=== PATIENT | male | born 1940 | race Caucasian/White ===

== ENCOUNTER 2018-04-10 10:29 | Day surgery (SDC) | payer MEDICARE, OTHER, SELFPAY ==
[2018-04-10 10:54] VITALS: BP 181/82; PULSE 57; RESP 20; TEMP 36.6; O2SAT 100; BMI 20.9
--- NOTE | 2018-04-10 12:18 | PM.PREOP ---
Pre-operative Note Interval Note History & Physical reviewed/Exam performed by Physician: No Changes to H&P: No
--- NOTE | 2018-04-10 12:18 | PM.OP.1 ---
Operative Date/Time/Diagnoses Pre-op diagnosis: Nuclear cataract right eye Procedure & Clinicians Procedure: Cataract Surgery Same procedure as scheduled: Yes Surgeon: Pelon Ott Anesthesia Type: MAC +/- and Sedation Operative Notes Procedure in detail: Patient brought to the operating suite. Tetracaine drops placed in the right eye. Marking instrument was used to rossy the vertical and horizontal meridian. Patient was prepped and draped in sterile manner. Wire lid speculum was placed in the eye. Betadine drops were placed on the eye. This was irrigated. Lidocaine jelly was placed on the eye. A paracentesis port was created with a side-port blade. 0.1 mL 1% preservative free lidocaine was injected into the anterior chamber. The anterior chamber was deepened with viscoelastic. 2.6 mm keratome was used to create a temporal clear corneal incision. Cystotome and Utrata forceps were used to create continuous tear capsulorrhexis. Balanced salt solution was used to hydro dissect the nucleus. The phacoemulsification handpiece was inserted and the nucleus was removed using the stop and chop technique. The irrigation aspiration handpiece was inserted and the remaining cortex was removed. Anterior chamber was deepened with viscoelastic. An Bronson [id number] intraocular lens with a power of 22.5 was injected into the capsular bag. Irrigation aspiration handpiece was inserted and the remaining viscoelastic was removed. The lens was rotated to the 180 degree meridian. Incision was hydrated with balanced salt solution and found to be leak free with pressure with Weck-Terrie sponges. 0.1 mL Vigamox injected anterior chamber. 0.3 mL Kenalog 10 mg was injected subconjunctivally. Lid speculum was removed. The patient left the operating room in excellent condition. Complications: none Condition: stable Disposition: same day surgery
[2018-04-10] MEDS: PHENYLEPHRINE/LIDOCAINE VIAL (OR) 0.2 ML EYE-OP (12:33)
[2018-04-10] MEDS: MOXIFLOXACIN OPHTH DROPS 3 ML BOTTLE 2 DROPS INJ (12:34)
[2018-04-10] MEDS: CHONDROIDTIN/SOD HYALURONATE 1.05 ML SYRINGE INTRAOCULA (12:34)
[2018-04-10] MEDS: LIDOCAINE JELLY 2% 5 ML 1 APPLIC TOP (12:34)
[2018-04-10] MEDS: TRIAMCINOLONE 50 MG/5 ML VIAL INJ (12:34)
[2018-04-10] MEDS: TETRACAINE 0.5% OPHTH DROPS 4 ML 2 DROPS EYE-OP (12:35)
[2018-04-10] MEDS: PROPARACAINE 0.5% OPHTH SOL 2 DROPS EYE-OP (12:35)
[2018-04-10] MEDS: BALANCED SALT IRRIG SOLN NO.2 500 ML, EPINEPHrine 1 MG IRR (12:36)
[2018-04-10 12:44] VITALS: BP 163/74; PULSE 59; RESP 14; TEMP 36.5; O2SAT 100
--- NOTE | 2018-04-10 13:10 | SUR.PHASEII ---
1244 late entry To [facility], friend at bedside, A&O, pleasant and comfortable. Fluids given. 1300 Stable, preparing for discharge, tolerating PO well. No questions/concerns. Arie remains CDI.
== END 2018-04-10 13:06 ==
LOC: OR 10:32
PROVIDERS: Visit Provider Ophthalmology
DX: H25.11 Age-related nuclear cataract, right eye (principal)
CPT/HCPCS: J0171; J2250; J3010; J3301; V2787

== ENCOUNTER 2018-04-24 06:36 | Day surgery (SDC) | payer MEDICARE, OTHER, SELFPAY ==
[2018-04-24 07:05] VITALS: BP 190/81; PULSE 63; RESP 16; TEMP 36.4; O2SAT 97; BMI 20.9
[2018-04-24] MEDS: PROPARACAINE 0.5% OPHTH SOL 2 DROPS EYE-OP (07:10)
[2018-04-24] MEDS: CATARACT EYE COMPOUND (10 DROPS/SYRINGE) 3 DROPS EYE-OP (07:16)
--- NOTE | 2018-04-24 08:14 | PM.PREOP ---
Pre-operative Note Interval Note History & Physical reviewed/Exam performed by Physician: No Changes to H&P: No
--- NOTE | 2018-04-24 08:14 | PM.OP.1 ---
Operative Date/Time/Diagnoses Pre-op diagnosis: Nuclear Cataract Left eye Post-op diagnosis: same Procedure & Clinicians Surgeon: Pelon Ott Anesthesia Type: MAC +/- and Sedation Operative Notes Procedure in detail: Patient brought to the operating suite. Tetracaine drops placed in the left eye. The marking instrument was used to rossy the vertical and horizontal meridian. Patient was prepped and draped in sterile manner. Wire lid speculum was placed in the eye. Betadine drops were placed on the eye. This was irrigated. Lidocaine jelly was placed on the eye. A paracentesis port was created with a side-port blade. 0.1 mL 1% preservative free lidocaine was injected into the anterior chamber. The anterior chamber was deepened with viscoelastic. 2.6 mm keratome was used to create a temporal clear corneal incision. Cystotome and Utrata forceps were used to create continuous tear capsulorrhexis. Balanced salt solution was used to hydro dissect the nucleus. The phacoemulsification handpiece was inserted and the nucleus was removed using the stop and chop technique. The irrigation aspiration handpiece was inserted and the remaining cortex was removed. Anterior chamber was deepened with viscoelastic. An Bronson [id number] intraocular lens with a power of 22.0 was injected into the capsular bag. Irrigation aspiration handpiece was inserted and the remaining viscoelastic was removed. The lens was rotated to the 180 degree meridian. Incision was hydrated with balanced salt solution and found to be leak free with pressure with Weck-Terrie sponges. 0.1 mL Vigamox injected anterior chamber. 0.3 mL Kenalog 10 mg was injected subconjunctivally. Lid speculum was removed. The patient left the operating room in excellent condition. Complications: none Condition: stable Disposition: same day surgery
--- NOTE | 2018-04-24 08:16 | SUR.OPER ---
Supine on eye stretcher, head on extension cradle secured with tape. Arms tucked at sides with blanket. Pillow under knees.
[2018-04-24] MEDS: LIDOCAINE JELLY 2% 5 ML 1 APPLIC TOP (08:25)
[2018-04-24] MEDS: CHONDROIDTIN/SOD HYALURONATE 1.05 ML SYRINGE INTRAOCULA (08:26)
[2018-04-24] MEDS: TRIAMCINOLONE 50 MG/5 ML VIAL INJ (08:26)
[2018-04-24] MEDS: MOXIFLOXACIN OPHTH DROPS 3 ML BOTTLE 2 DROPS INJ (08:27)
[2018-04-24] MEDS: PHENYLEPHRINE/LIDOCAINE VIAL (OR) 0.2 ML EYE-OP (08:27)
[2018-04-24] MEDS: BALANCED SALT IRRIG SOLN NO.2 500 ML, EPINEPHrine 1 MG IRR (08:28)
[2018-04-24] MEDS: TETRACAINE 0.5% OPHTH DROPS 4 ML 2 DROPS EYE-OP (08:29)
[2018-04-24 08:42] VITALS: BP 160/77; PULSE 62; RESP 15; TEMP 36.4; O2SAT 100
== END 2018-04-24 08:50 ==
LOC: OR 06:37
PROVIDERS: Visit Provider Ophthalmology
PROC: (CPT 66984; principal; 2018-04-24 08:15)
DX: H25.12 Age-related nuclear cataract, left eye (principal)
CPT/HCPCS: 66984; J0171; J2250; J3301; V2787

== ENCOUNTER 2019-03-26 12:32 | Day surgery (SDC) | payer MEDICARE, OTHER, SELFPAY ==
[2019-03-26] VITALS (7 sets, daily range): BP systolic 123–158; BP diastolic 68–80; PULSE 70–84; RESP 8–16; TEMP 36–36.7; O2SAT 95–100
--- NOTE | 2019-03-26 | PATH_ITS ---
[facility] Accession Number: [id number] . 01 Material submitted: . PART A: duodenum - DUODENUM BIOPSY PART B: gastrointestinal site - MASS IN ANTRUM PART C: esophagus - DISTAL ESOPHAGUS PART D: hepatic flexure - HEPATIC FLEXURE MASS PART E: cecum - CECAL POLYP PART F: rectum - RECTAL POLYPS AT 15 CM . 02 Diagnosis: A. Duodenum, Biopsy: Duodenal mucosa with no diagnostic abnormality. Negative for active inflammation, features of sprue, dysplasia, or malignancy. . B. Antrum, Biopsy: Gastric hyperplastic polyp. No evidence of Helicobacter organisms on H/E stain. Negative for intestinal metaplasia on alcian blue stain. Negative for dysplasia or malignancy. Additional step sections examined. . C. Distal Esophagus, Biopsy: Squamocolumnar junctional mucosa with intestinal metaplasia; please see comment. Negative for dysplasia or malignancy. . D. Hepatic Flexure Mass, Biopsy: Invasive adenocarcinoma, moderately to poorly differentiated. Loss of MLH1 and PMS2 expression by immunohistochemistry; please see interpretation below and comment. Lymphovascular invasion not identified. . E. Cecum, Polyp: Small serrated lesion, consistent with early sessile serrated adenoma. . F. Rectum at 15 cm, Polyp: Hyperplastic polyp. . IMMUNOHISTOCHEMISTRY TESTING FOR MISMATCH REPAIR PROTEINS (D1): . MLH1: Loss of nuclear expression. MSH2: Intact nuclear expression. MSH6: Intact nuclear expression. PMS2: Loss of nuclear expression. Background nonneoplastic tissue/internal control with intact nuclear expression. . INTERPRETATION: Loss of nuclear expression of MLH1 and PMS2: testing for methylation of the MLH1 promoter and/or mutation of BRAF is indicated (the presence of a BRAF V600E mutation and/or MLH1 methylation suggests that the tumor is sporadic and germline evaluation is probably not indicated; absence of both MLH1 methylation and of BRAF V600E mutation suggests the possibility of Callejas syndrome, and sequencing and/or large deletion/duplication testing of germline MLH1 may be indicated)* . * There are exceptions to the above IHC interpretations. These results should not be considered in isolation, and clinical correlation with genetic counseling is recommended to assess the need for germline testing. [facility] 03/29/2019 1532 Local . 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 . Part D: Given the loss of nuclear expression of MLH1 and PMS2, MLH1 promoter methylation and BRAF V600 mutational analyses will be performed in a stepwise fashion, and findings issued in an addendum. . As part of routine automotive quality engineer, Dr. Dee has reviewed part D of this case and agrees with the diagnosis of invasive adenocarcinoma. The finding of invasive adenocarcinoma was reported to Dr. Campbell via [facility] by Dr. Lara on 03/28/2019 at 10:40 a.m. . 02 Electronically signed: . Adams Lara MD, PhD, Pathologist NPI- [id number] . 01 Gross description: . Part A: DUODENUM BIOPSY: Received in formalin is 1 fragment(s) of galvan, soft tissue measuring 0.3 x 0.2 x 0.2 cm submitted entirely in 1 cassette(s) Part B: MASS IN ANTRUM: Received in formalin is 1 fragment(s) of galvan, soft tissue measuring 0.2 x 0.2 x 0.2 cm submitted entirely in 1 cassette(s) Part C: DISTAL ESOPHAGUS: Received in formalin are 2 fragment(s) of galvan, soft tissue measuring 0.1 x 0.1 x 0.1 cm to 0.2 x 0.2 x 0.2 cm submitted entirely in 1 cassette(s) Part D: HEPATIC FLEXURE MASS: Received in formalin are 2 fragment(s) of galvan, soft tissue measuring 0.2 x 0.2 x 0.1 cm to 0.3 x 0.3 x 0.2 cm submitted entirely in 1 cassette(s) Part E: CECAL POLYP: Received in formalin is 1 fragment(s) of galvan, soft tissue measuring 0.2 x 0.2 x 0.2 cm submitted entirely in 1 cassette(s) Part F: RECTAL POLYPS AT 15 CM: Received in formalin is 1 fragment(s) of galvan, soft tissue measuring 0.2 x 0.2 x 0.2 cm submitted entirely in 1 cassette(s) /[facility] 03/26/2019 2016 Local . 02 Microscopic: . Part B: An AB/PAS stain is performed to evaluate for intestinal metaplasia, and is negative for goblet cells. A control stain shows appropriate reactivity. . Part D: The carcinoma cells show loss of nuclear expression of MLH1 and PMS2 by immunohistochemical technique*; the carcinoma cells have intact nuclear expression of MSH2 and MSH6. All control stains show appropriate reactivity. . * This test was developed and its performance characteristics determined by [employer]. It has not been cleared or approved by the U.S. Food and Drug Administration. The FDA has determined that such clearance or approval is not necessary. This test is used for clinical purposes. It should not be regarded as investigational or for research. . 02 Pathologist provided ICD-10: K31.7, K22.70, D12.0, K62.1, C18.3 . 02 CPT . 518333, 250663, 986997, 283749, 146529, 466065, T59160, W00788, 654306 Performed at: 01 [facility] [address] [place] [address], [place], [place] [id number] MD Wliner Magaña MD Phone: [phone] Performed at: 02 [facility] [address] [place], [place] [id number] MD Rema Meléndez MD Phone: [phone]
[2019-03-26] MEDS: SODIUM CHLORIDE 0.9% 1,000 ML 200 ML IV (12:59)
--- NOTE | 2019-03-26 13:41 | PM.PREOP ---
Pre-operative Note Interval Note History & Physical reviewed/Exam performed by Physician: Yes Changes to H&P: No ASA Class (for procedural sedation): II
--- NOTE | 2019-03-26 14:55 | PM.OP.ENDO ---
Operative Date/Time/Diagnoses Date of procedure: 03/26/19 Time of procedure: 14:56 Pre-op diagnosis: Anemia, positive fit test Post-op diagnosis: other (Antral mass, Ambrocio's esophagus, hepatic flexure mass, cecal polyp, rectal polyps x2) Procedure & Clinicians Study performed: Esophagogastroduodenoscopy, biopsy of antral mass, biopsy of distal esophagus, colonoscopy, biopsy of hepatic flexure mass, cecal polypectomy, rectal polypectomy x2 Same procedure as scheduled: Yes Indications: Anemia, positive fit test Surgeon: Grace Campbell Procedure Notes SCOAP/Timeout: Performed Procedure in detail: The patient was brought to the room and placed in left lateral decubitus position with all bony prominences padded. A time-out was performed and then the patient was given procedural sedation starting with 4 mg of Versed and 100 mcg of fentanyl. A total of 8 mg of Versed and 200 micro g of fentanyl were given for the entire procedure. Vitals were monitored throughout the procedure and remained stable. Once adequately sedated the procedure was begun. The gastroscope was passed over the tongue and into the esophagus without incident. The tubularized full view was obtained of the esophagus and maintained as I traversed the esophagus, long tongues of salmon-colored mucosa were seen in the distal esophagus greater than 1 cm above the Z-line. These were biopsied circumferentially. Passed into the stomach, and a submucosal protuberance was seen at the antrum. This was biopsied x3. I then popped into the duodenum, which appeared fairly normal with mild inflammation. This was biopsied. The gastroscope was then retracted out of the duodenum into the stomach it was retroflexed to look up at the hiatus. The patient had a Hill grade 4 hiatal hernia, which was 3 cm in width x 5 cm in length. The gastroscope was then withdrawn from the stomach through the esophagus without incident and removed from the patient. He tolerated this portion of the procedure well. He was then turned in the other direction, and a rectal exam was performed revealing no abnormalities. The colonoscope was then introduced to the rectum and advanced to the cecum in the usual fashion. The cecum was identified by the appendiceal orifice, the mucosal tri-fold, and the ileocecal valve. A small polyp was seen next to the appendiceal orifice, which was biopsied with cold forceps. The scope was then retracted while rotating side to side and examining each mucosal fold. At the hepatic flexure an ulcerated mass was seen which was approximately 3 cm x 5 cm and appears to be a cancer. This was biopsied, and tattoos were placed proximal and distal to the mass. In the rectum 2 small polyps were removed at 15 cm from the anal verge. At the conclusion of the procedure retroflexion was performed and small grade 1 internal hemorrhoids without stigmata of bleeding were seen. The scope was then withdrawn from the rectum the procedure was concluded. The patient tolerated the procedure well and was transferred to the PACU in stable condition. Scope withdrawal time: 27 Sedation minutes: 69 Findings: Ambrocio's esophagus, hiatal hernia, polyp and possible cancer Specimen(s): other (Biopsy of antral mass, biopsies of duodenum, biopsies of distal esophagus (Ambrocio's esophagus), cecal polyp, rectal polyp x2, hepatic flexure mass) Complications: none Impression: Possible submucosal gastric mass, Ambrocio's esophagus, hepatic flexure mass which is likely a cancer, small polyps in the cecum and rectum Post-procedure Recommendations: Will call with biopsy results Plan for aftercare: Keep for observation x2 hours; follow-up discussion with the patient is fully awake Follow up: weeks (One week for discussion of biopsy results and next steps) Disposition: PACU
[2019-03-26] MEDS: LIDOCAINE 4% SOLN 50 ML 20 ML TOP (15:00)
[2019-03-26] MEDS: MIDAZOLAM 5 MG/5 ML VIAL IV (15:01)
[2019-03-26] MEDS: fentaNYL 250 MCG/5 ML INJ IV (15:01)
--- NOTE | 2019-03-26 15:35 | SUR.PHASEII ---
Pt in stable condition, vss. Pt friend at bedside. Bed in lowest position and call light given to pt. Bedside report given to [facility] Rebolledo at this time. Transferred care of pt to [facility] Rebolledo at this time.
--- NOTE | 2019-03-26 16:35 | SUR.PHASEII ---
Friend with pt when Dr. Campbell spoke with pt. Dr. Campbell spoke at length with pt. Both voiced an understanding. Pt ready to go, assisted pt to dress. Pt left with belongings and in stable condition.
== END 2019-03-26 16:20 | disposition home or self-care (01) ==
PROVIDERS: PCP Family Medicine; Visit Provider Surgery
PROC: 0DJ08ZZ Inspection of Upper Intestinal Tract, Via Natural or Artificial Opening Endoscopic (ICD-10-PCS; CPT 43235; principal; 2019-03-26 13:45)
PROC: 0DJD8ZZ Inspection of Lower Intestinal Tract, Via Natural or Artificial Opening Endoscopic (ICD-10-PCS; CPT 45378; 2019-03-26 13:45)
DX: C18.3 Malignant neoplasm of hepatic flexure (principal); D64.9 Anemia, unspecified; K44.9 Diaphragmatic hernia without obstruction or gangrene; K64.0 First degree hemorrhoids; K31.7 Polyp of stomach and duodenum; K22.70 Barrett's esophagus without dysplasia; D12.0 Benign neoplasm of cecum; K62.1 Rectal polyp
CPT/HCPCS: 45381; 45380; 43239; 99152; 99153; J2250; J3010

== ENCOUNTER → 2019-03-28 15:14 | Outpatient (CLI) | payer MEDICARE, OTHER, SELFPAY ==
[2019-03-28 16:18] LABS: Add Manual Diff / Slide Review NO; Basophils Absolute Auto 0 /uL (0-100); Basophils Percent Auto 0.3 % (0-2); Eosinophils Absolute Auto 100 /uL (0-450); Eosinophils Percent Auto 2.3 % (2-4); Hematocrit 32.6 % (41-53); Hemoglobin 10.6 g/dL (13.5-17.5); Lymphocytes Absolute Auto 1500 /uL (1100-4500); Lymphocytes Percent Auto 27.5 % (25-40); Mean Corpuscular HGB Conc 32.5 % (30-36); Mean Corpuscular Hemoglobin 27.3 PG (26-34); Mean Corpuscular Volume 83.9 fL (80-100); Monocytes Absolute Auto 500 /uL (0-900); Monocytes Percent Auto 8.4 % (3-14); Neutrophils Absolute Auto 3400 /uL (1500-7000); Neutrophils Percent Auto 61.5 % (50-75); Platelet Count 223 X10^3/uL (150-400); Red Blood Cell Count 3.88 X10^6/uL (4.5-5.9); Red Cell Distribution Width 18.1 % (11.6-14.8); White Blood Cell Count 5.6 X10^3/uL (4.5-11.0)
[2019-03-28 16:36] LABS: BUN Creatinine Ratio 18.2 (6-22); Blood Urea Nitrogen 20 mg/dL (9-20); Carbon Dioxide 27 mmol/L (22-32); Chloride 105 mmol/L (98-107); Estimated Glomerular Filt Rate > 60.0 mL/min (>60); Glucose 99 mg/dL (80-110); HEMOLYSIS < 15 (0-50); Potassium 4.6 mmol/L (3.4-5.1); Sodium 139 mmol/L (137-145)
[2019-03-28 17:07] LABS: Carcinoembryonic Antigen 2.7 ng/mL (0.1-3.0)
== END ==
PROVIDERS: PCP Family Medicine; Visit Provider Surgery
DX: R19.5 Other fecal abnormalities (principal); K63.89 Other specified diseases of intestine
CPT/HCPCS: 36415; 80048; 82378; 85025

== ENCOUNTER → 2019-03-29 12:06 | Outpatient (CLI) | payer MEDICARE, OTHER, SELFPAY ==
--- NOTE | 2019-03-29 12:08 | DI.CT.S_ITS ---
PROCEDURE: CT CHEST ABD PEL W CON INDICATIONS: colon mass, eval for metastasis TECHNIQUE: After the administration of intravenous contrast, 5 mm thick sections acquired from the lung apices to the symphysis. 5 mm coronal and sagittal reformats were performed, with additional 7 mm MIP reformats through the lungs. For radiation dose reduction, the following was used: automated exposure control, adjustment of mA and/or kV according to patient size. COMPARISON: None. FINDINGS: Image quality: Excellent. CHEST: Lungs and pleura: No acute airspace opacities. No pleural effusions or pneumothorax. Central and peripheral airways appear patent and normal in caliber. Mediastinum: Heart size is normal. No pericardial effusion. No mediastinal or hilar adenopathy by size criteria. Thoracic aorta and central pulmonary arteries are normal in size. Esophagus is normal in caliber. No hiatal hernia. Chest wall: No axillary or supraclavicular adenopathy by size criteria. Thyroid gland is unremarkable. ABDOMEN: Solid organs: Liver is mildly prominent with steatosis. Multiple hepatic cysts are noted.. Gallbladder is unremarkable. Biliary system is non dilated. Pancreas enhances normally. Spleen is normal in size and enhancement. No adrenal nodules. Kidneys demonstrate normal size and enhancement, without hydronephrosis. Bilateral nonobstructing sub-centimeters renal calculi are noted. Peritoneum and bowel: Bowel loops demonstrate normal wall thickness and caliber. No free fluid or air. The stomach is markedly thickened. Nodes and vessels: No retroperitoneal or mesenteric adenopathy by size criteria. Aorta and inferior vena cava are normal in size. Miscellaneous: No ventral hernias. PELVIS: Genitourinary: Bladder wall thickness is normal. Miscellaneous: No inguinal hernias or adenopathy. Bones: No suspicious bony lesions. No vertebral body compression fractures. IMPRESSION: 1. No visualized evidence of metastatic disease. 2. Multiple hepatic cysts. 3. Markedly thickened stomach. While this could be secondary to incomplete distention, recommend correlation further evaluation for mass lesion as clinically indicated. Dictated by: Amanda Ordonez M.D. on 03/29/2019 at 14:39 Approved by: Amanda Ordonez M.D. on 03/29/2019 at 14:44
== END ==
PROVIDERS: PCP Family Medicine; Visit Provider Surgery
DX: K63.89 Other specified diseases of intestine (principal); R19.5 Other fecal abnormalities; K76.89 Other specified diseases of liver
CPT/HCPCS: 71260; 74177; Q9967

== ENCOUNTER → 2019-04-05 14:26 | Outpatient (CLI) | payer MEDICARE, OTHER, SELFPAY ==
[2019-04-05 16:24] LABS: Prostate Specific Antigen 16.5 ng/mL (0.10-4.00)
== END ==
PROVIDERS: PCP Family Medicine; Visit Provider Specialist
DX: N40.1 Benign prostatic hyperplasia with lower urinary tract symptoms (principal)
CPT/HCPCS: 36415; 84153

== ENCOUNTER → 2019-04-17 14:59 | Outpatient (CLI) | payer MEDICARE, OTHER, SELFPAY | PROVIDERS: PCP Family Medicine; Visit Provider Family Medicine | DX: C18.9 Malignant neoplasm of colon, unspecified (principal); Z01.818 Encounter for other preprocedural examination | CPT/HCPCS: 93005; 93010 ==

== ENCOUNTER 2019-05-08 07:10 | Inpatient (IN) | payer MEDICARE, OTHER, SELFPAY ==
[2019-04-26 10:42] VITALS: BMI 20.7
[2019-05-08] VITALS (28 sets, daily range): BP systolic 97–175; BP diastolic 62–85; PULSE 69–114; RESP 6–20; TEMP 36.3–37.9; O2SAT 90–100; BMI 20.2
--- NOTE | 2019-05-08 | PATH_ITS ---
[facility] Accession Number: [id number] . 01 Material submitted: . colon - RIGHT COLON . 01 Clinical history: . LAPAROSCOPICALLY ASSISTED COLECTOMY . 02 Diagnosis: Right Colon, Laparoscopically Assisted Colectomy: Invasive adenocarcinoma, moderately differentiated; see cancer case summary Appendix with no diagnostic abnormality. . Surgical Pathology Cancer Case Summary - Colon and rectum. Procedure: Laparoscopic assisted colectomy. Tumor Site: Hepatic flexure. Tumor Size: Greatest dimension, 3.6 cm. Macroscopic tumor perforation: Not identified. Histologic type: Adenocarcinoma. Histologic grade: G2 - Moderately differentiated; See Comment. Tumor extension: Tumor invades muscularis propria. Margins: All margins are uninvolved by invasive carcinoma, high-grade dysplasia, and adenoma. Margins examined: Proximal, distal, radial/mesenteric. Treatment effect: No known presurgical therapy. Lymphovascular invasion: Not identified. Perineural invasion: Not identified. Tumor budding: Low score (0-4). Tumor deposits: None identified. Regional lymph nodes: Number of lymph nodes involved: 0. Number of lymph nodes examined: 31. Pathologic stage classification (pTNM, AJCC 8th edition): Primary tumor: pT2. Regional lymph nodes: pN0. Ancillary studies: Biomarkers were performed on the previous biopsy specimen ([id number]). Immunohistochemical stains showed loss of MLH1 and PMS2, with intact nuclear expression of MSH2 and MSH6. Given that finding, BRAF mutational analysis at [facility], [place], [place], as [id number], which showed a BRAF V600E mutation. A BRAF V600E mutation is associated with MLH1 deficient, MSI unstable sporadic colorectal carcinoma, and excludes the possibility of Callejas syndrome. [facility] 05/13/2019 1445 Local . 02 Comment: Areas of high-grade histology (solid growth, signet ring cell features) are present, but represent less than 50% of the sampled carcinoma; per convention the lesion is graded as moderately differentiated. . 02 Electronically signed: . Adams Lara MD, PhD, Pathologist NPI- [id number] . 01 Gross description: . Received in formalin, labeled right colon, is a segment of terminal ileum (length-2.0 cm, proximal diameter-2.2 cm), ileocecal valve, cecum and ascending colon (length-19.5 cm, distal diameter-2.7 cm), with attached mesentery (up to 6.2 cm in depth) and attached appendix (length-5.2 cm, diameter-0.5 cm). The specimen is received partially opened with the resection margins stapled. The serosa is galvan-pink, smooth and shiny. A portion of the mesentery contains black ink. The mucosa is galvan with normal folds with two distinct blackened tattooed areas (area #1-4.5 x 4.0 cm; area #2-3.0 x 2.2 cm). The first area is 6.8 cm distal to the ileocecal valve and 4.5 cm proximal to area #2. Area #2 is 1.8 cm from the distal resection margin. Mucosa between and involving these two areas is pale, firm, and contains a galvan, firm mass (3.6 x 2.4 x 0.7 cm). The mass is less than 0.1 cm from the serosa, 11.4 cm from the proximal, 5.8 cm from the distal, and 4.2 cm from the radial resection margins. The mass appears to extend into, but not through, the muscularis propria. Subserosal pericolonic tissues do not appear involved. The mass does not involve the ileocecal valve or cecum. The appendix is unremarkable. No other nodules, masses or lesions are identified. Multiple lymph nodes (0.1 cm-0.8 cm) are identified. The resection margins are inked blue. Section code: (A1) proximal resection margin, bilingual sales representative longitudinal sections; (A2) distal resection margin, longitudinal bilingual sales representative sections; (A3) mass with serosa, bilingual sales representative serial sections; (A4) radial margin, bilingual sales representative perpendicular sections; (A5-A18) bilingual sales representative serial sections of the tattooed area with the mass, submitted proximal to distal, approximately 90% submitted; (A19) appendix, bilingual sales representative; (A20-A23) multiple intact lymph nodes; (A24) one bisected lymph node. ([id number]) /[facility] 05/13/2019 1203 Local . 02 Pathologist provided ICD-10: C18.9 . 02 CPT . 056297 Performed at: 01 [facility] [address] [place] [address], [place], [place] [id number] MD Wilner Magaña MD Phone: [phone] Performed at: [address] [address] [id number] [place], [place] [id number] MD Rema Meléndez MD Phone: [phone]
[2019-05-08] MEDS: LACTATED RINGERS 1,000 ML 42 ML IV ×3 (07:51→11:38)
--- NOTE | 2019-05-08 08:18 | PM.PREOP ---
Pre-operative Note Interval Note History & Physical reviewed/Exam performed by Physician: Yes Changes to H&P: Yes H&P completed within 30 days and has changed as indicated here:: Changes: Had gastric EUS without signs of gastric mass. Increasing constipation.
[2019-05-08] MEDS: PIPERACILLIN-TAZO 3.375 GM/50 ML FROZ.PIGGY IV (09:17)
--- NOTE | 2019-05-08 09:38 | SUR.OPER ---
Lithotomy on padded OR bed. Nellie Pad Positioner under torso. Head on pillow, arms padded and tucked at sides. Legs secured in padded yellow fins stirrups.
--- NOTE | 2019-05-08 10:01 | SUR.OPER ---
[facility] MACHINE USED
[2019-05-08] MEDS: BUPIVACAINE 0.25% W/ EPI 30 ML VIAL INJ ×2 (10:05→12:32)
[2019-05-08] MEDS: BUPIVACAINE LIPOSOME 266 MG/20 ML VIAL INJ (12:32)
--- NOTE | 2019-05-08 13:08 | P.OP_ITS ---
Operative Date/Time/Diagnoses Date of procedure: 05/08/19 Time of procedure: 13:08 Pre-op diagnosis: Colon cancer Post-op diagnosis: same Procedure & Clinicians Procedure: Laparoscopic hand assist right hemicolectomy Same procedure as scheduled: Yes Indications: Hepatic flexure adenocarcinoma Surgeon: Grace Campbell [employer] Line Technician: Jeff Waldrop Anesthesia Type: General Operative Notes Findings: Firm mass in the hepatic flexure between the 2 tattooed areas of colon, no enlarged lymph nodes, no signs of cancer coming through the colon wall. Closure Type: primary Specimen(s): other (Right colon) Estimated Blood Loss (mL): 20 Procedure in detail: The patient was brought into the operating room and placed supine on the OR table. Sequential compression devices were placed on both legs and turned on. Appropriate perioperative antibiotics were given prior to the start of surgery. General anesthesia was induced the patient was intubated. The patient was positioned in low lithotomy, modified Xavi Santos position with both arms tucked. The abdomen was prepped and draped in sterile fashion. Surgical time-out was conducted. Local anesthetic was injected under the skin just superior to the umbilicus and a 5 mm vertical incision was made at this site. The umbilical stalk was grasped with a Mendez and elevated. A Veress needle was passed through the fascia into proper position. The position was tested with a saline drop test which was appropriate for intra-abdominal Veress needle placement. The abdomen was then insufflated in the usual fashion. Once insufflated to 15 mm Hg the Veress needle was removed and a 5 mm optical trocar was placed under direct vision using a 5 mm 30 degree scope. Once the camera was inside the abdomen I took a look around. There was no injury from port placement. Two additional ports were placed in a similar fashion in the left upper quadrant and left mid abdomen. Nevaeh additional port was placed in the right lower abdomen. Dissection was begun along the gastrocolic ligament from the mid transverse laterally toward the hepatic flexure. The colon was mobilized toward the flexure. The hepatic flexure was very high, and so attention was then turned to the right lateral gutter and I began taking down the white line of Toldt using [place] Ligasure. The ascending colon was mobilized up to the flexure. I then placed a hand port in the upper midline. Local anesthetic was injected in the skin, and a 7cm incision was made with a 15 blade at this site. Dissection was carried down to the fascia. Two epigastric hernias were encountered as I approached the fascia. I dissected out the hernia sacs, divided them off and passed them from the field. Once the fascia was open a [place] handport was placed. I was able to use my hand to complete the dissection of the hepatic flexure. Once the dissection was completed, I mobilized the ileum using [place] Ligasure. Once the colon and ileum were mobilized, I brought the entire right colon up through the hand port. The mass was palpable between the two tattooed areas of colon. I ensured proper locations for division of the bowel for proper oncologic dissection. I then divided the mesentery using Ligasure, as well as clamps and ties on the ileocolic artery and vein. Branches to the ileum were preserved with palpable arterial pulse going to the ileum. I then divided the bowel using blue load CURT stapler, just proximal to the ileocecal valve and 10cm distal to the hepatic flexure. Good arterial supply was palpated going to the remaining colon and ileum. Side by side stapled anastomosis was made using CURT blue load stapler. The ends were then oversewn using running 3-0 PDS and then 3-0 silk lembert sutures over that. I covered the staple lines with pericolic fat and sutured it down with 3-0 silk Lemberts. The anastomosis was then tested by occluding the ileum and intraluminal gas was squeezed across the anastomosis from the transverse colon with no bubbling coming from the anastomosis, indicating a negative leak test. The bowel was then placed back inside, and the [place] lid was placed back on. The abdomen was reinsufflated. The anastomosis was in good position, and there was good hemostasis in the dissection area. The fascial incision and port sites were then injected with an additional 30mL of 0.25% Marcaine with epinephrine. An additional 20mL of Exparel was injected into the peritoneum and fascia. I then closed the fascia with running 0 Prolene, and closed the skin with skin penny. The remaining 5mm port sites were also closed with penny. The wounds were dressed with 4x4's and tape, with bandaids on the port sites. This concluded the procedure. At this point the needle sponge and instrument counts were correct. The colon was passed off the table for pathology. Patient was awakened from anesthesia and extubated. He was transferred to the postanesthesia care unit in stable condition. Complications: none Post-operative Condition: stable Disposition: PACU Plan for aftercare: Transfer to acute care for pain control, and to await return of bowel function.
[2019-05-08 13:37] LABS: Add Manual Diff / Slide Review NO; Basophils Absolute Auto 0 /uL (0-100); Basophils Percent Auto 0.1 % (0-2); Eosinophils Absolute Auto 0 /uL (0-450); Hematocrit 29.9 % (41-53); Hemoglobin 9.8 g/dL (13.5-17.5); Lymphocytes Absolute Auto 300 /uL (1100-4500); Lymphocytes Percent Auto 3.8 % (25-40); Mean Corpuscular HGB Conc 32.7 % (30-36); Mean Corpuscular Hemoglobin 26.9 PG (26-34); Mean Corpuscular Volume 82.2 fL (80-100); Monocytes Absolute Auto 100 /uL (0-900); Monocytes Percent Auto 1.8 % (3-14); Neutrophils Absolute Auto 7800 /uL (1500-7000); Neutrophils Percent Auto 94.3 % (50-75); Platelet Count 206 X10^3/uL (150-400); Red Blood Cell Count 3.63 X10^6/uL (4.5-5.9); Red Cell Distribution Width 17.2 % (11.6-14.8); White Blood Cell Count 8.3 X10^3/uL (4.5-11.0)
[2019-05-08 13:50] LABS: BUN Creatinine Ratio 15.5 (6-22); Blood Urea Nitrogen 17 mg/dL (9-20); Calcium 8.2 mg/dL (8.4-10.2); Carbon Dioxide 23 mmol/L (22-32); Chloride 105 mmol/L (98-107); Estimated Glomerular Filt Rate > 60.0 mL/min (>60); Glucose 149 mg/dL (80-110); HEMOLYSIS < 15 (0-50); Magnesium 2.1 mg/dL (1.6-2.3); Potassium 3.5 mmol/L (3.4-5.1); Sodium 137 mmol/L (137-145)
[2019-05-08] MEDS: HYDROMORPHONE 2 MG INJ IV (14:04)
[2019-05-08] MEDS: hydrOXYzine 50 MG/ML INJ 25 MG IM (14:07)
--- NOTE | 2019-05-08 15:03 | SUR.PHASEI ---
Report to DIYA Mclaughlin . Pt was transferred to via bed to room 223. Monitoring started, showing stable vital signs. Family at bedside and pt alert and oriented to their presence. Care of pt transferred in stable condition.
[2019-05-08] MEDS: GABAPENTIN 300 MG CAPSULE PO ×2 (15:50→20:49)
[2019-05-08] MEDS: SODIUM CHLORIDE 0.9% 1,000 ML 80 ML IV (17:04)
[2019-05-08] MEDS: HEPARIN 5,000 UNIT/ML VIAL 5000 UNIT SUBCUT (20:49)
--- NOTE | 2019-05-08 23:22 | PC.NURSE ---
evening shift note- admission questions done, medications reviewed, and physical assessment completed. Oriented patient to bed and bed controls, room, lights, phone, menu, bathroom,and call singh/tv remote. dressing to abdomin c/d/i. abdominal binder applied. no complaints of pain or discomfort. safety measures in place. call singh and phone within reach. will continue to monitor.
[2019-05-08] MEDS: ACETAMINOPHEN 325 MG TABLET 650 MG PO (23:57)
[2019-05-09] VITALS (9 sets, daily range): BP systolic 106–155; BP diastolic 64–76; PULSE 69–102; RESP 16–18; TEMP 35.8–37.7; O2SAT 94–98; BMI 20.2
[2019-05-09] MEDS: SODIUM CHLORIDE 0.9% 1,000 ML 80 ML IV (05:19)
[2019-05-09 05:31] LABS: Add Manual Diff / Slide Review NO; Basophils Absolute Auto 0 /uL (0-100); Basophils Percent Auto 0.2 % (0-2); Eosinophils Absolute Auto 0 /uL (0-450); Hematocrit 28.7 % (41-53); Hemoglobin 9.4 g/dL (13.5-17.5); Lymphocytes Absolute Auto 800 /uL (1100-4500); Lymphocytes Percent Auto 11.9 % (25-40); Mean Corpuscular HGB Conc 32.6 % (30-36); Mean Corpuscular Hemoglobin 26.7 PG (26-34); Mean Corpuscular Volume 81.7 fL (80-100); Monocytes Absolute Auto 800 /uL (0-900); Monocytes Percent Auto 11.4 % (3-14); Neutrophils Absolute Auto 5400 /uL (1500-7000); Neutrophils Percent Auto 76.5 % (50-75); Platelet Count 198 X10^3/uL (150-400); Red Blood Cell Count 3.52 X10^6/uL (4.5-5.9); Red Cell Distribution Width 17.1 % (11.6-14.8)
[2019-05-09 05:47] LABS: BUN Creatinine Ratio 14.5 (6-22); Blood Urea Nitrogen 16 mg/dL (9-20); Calcium 8.2 mg/dL (8.4-10.2); Carbon Dioxide 24 mmol/L (22-32); Chloride 106 mmol/L (98-107); Estimated Glomerular Filt Rate > 60.0 mL/min (>60); Glucose 128 mg/dL (80-110); HEMOLYSIS < 15 (0-50); Magnesium 2.1 mg/dL (1.6-2.3); Potassium 4.1 mmol/L (3.4-5.1); Sodium 137 mmol/L (137-145)
[2019-05-09] MEDS: ACETAMINOPHEN 325 MG TABLET 650 MG PO ×3 (06:07→18:09)
--- NOTE | 2019-05-09 06:10 | DI.RAD.S_ITS ---
PROCEDURE: XR CHEST 1V INDICATIONS: desating TECHNIQUE: One view of the chest was acquired. COMPARISON: [facility], CT, CT CHEST ABD PEL W CON, 03/29/2019, 12:39. FINDINGS: Surgical changes and devices: None. Lungs and pleura: Patchy opacity noted in the left lung base concerning for developing pneumonia. No pleural effusions or pneumothorax. Mediastinum: Mediastinal contours appear normal. Heart size is normal. Bones and chest wall: No suspicious bony lesions. Overlying soft tissues appear unremarkable. Free air is noted under the diaphragms. IMPRESSION: 1. Focal airspace opacity in the left lung base concerning for developing pneumonia. 2. Pneumoperitoneum. Findings discussed with Dr. Campbell on 05/09/2019 0903 hrs. Dictated by: Jessica Dumont MD, PhD on 05/09/2019 at 8:58 Approved by: Jessica Dumont MD, PhD on 05/09/2019 at 9:18
[2019-05-09] MEDS: HEPARIN 5,000 UNIT/ML VIAL 5000 UNIT SUBCUT ×2 (08:48→21:08)
[2019-05-09] MEDS: GABAPENTIN 300 MG CAPSULE PO (08:48)
--- NOTE | 2019-05-09 09:13 | P.PN_ITS ---
Subjective Subjective Date Patient Seen: 05/09/19 Time Patient Seen: 09:13 Interval history: Pt had some desats and low grade temps overnight. CXR this AM shows left lower lobe opacity. He denies significant pain. Pain well controlled on Tylenol and gabapentin. Passed flatus this AM. Tolerating fulls and clears. Exam Vital Signs (past 8 hours): - 05/09/19 06:30 05/09/19 08:00 05/09/19 08:30 Temperature 98.5 F 99.9 F H Pulse Rate 74 75 Respiratory Rate 16 18 Blood Pressure 109/67 123/71 Pulse Oximetry 95 96 97 Oxygen Delivery Method Room Air Oxygen Flow Rate 0 Narrative Exam Narrative: alert, oriented, comfortable normal respirations, non tachypneic, satting well on room air abdomen soft, appropriately TTP for POD#1 dressings c/d/i no LE edema barone in place with clear urine Objective Imaging Chest x-ray: Radiologist's impression: Left lower lobe opacity Labs Result Diagrams: 05/09/19 05:18 05/09/19 05:18 Labs: Laboratory Results - last 24 hr 05/08/19 05/08/19 05/09/19 13:24 13:24 05:18 WBC 8.3 7.0 RBC 3.63 L 3.52 L Hgb 9.8 L 9.4 L Hct 29.9 L 28.7 L MCV 82.2 81.7 MCH 26.9 26.7 MCHC 32.7 32.6 RDW 17.2 H 17.1 H Plt Count 206 198 Neut % (Auto) 94.3 H 76.5 H Lymph % (Auto) 3.8 L 11.9 L [place] % (Auto) 1.8 L 11.4 Eos % (Auto) 0.0 L 0.0 L Baso % (Auto) 0.1 0.2 Neut # (Auto) 7800 H 5400 Lymph # (Auto) 300 L 800 L [place] # (Auto) 100 800 Eos # (Auto) 0 0 Baso # (Auto) 0 0 Sodium 137 Potassium 3.5 Chloride 105 Carbon Dioxide 23 BUN 17 Creatinine 1.10 Estimated GFR > 60.0 BUN/Creatinine Ratio 15.5 Glucose 149 H Calcium 8.2 L Magnesium 2.1 05/09/19 05:18 WBC RBC Hgb Hct MCV MCH MCHC RDW Plt Count Neut % (Auto) Lymph % (Auto) [place] % (Auto) Eos % (Auto) Baso % (Auto) Neut # (Auto) Lymph # (Auto) [place] # (Auto) Eos # (Auto) Baso # (Auto) Sodium 137 Potassium 4.1 Chloride 106 Carbon Dioxide 24 BUN 16 Creatinine 1.10 Estimated GFR > 60.0 BUN/Creatinine Ratio 14.5 Glucose 128 H Calcium 8.2 L Magnesium 2.1 Assessment & Plan Assessment and plan (1) Colon cancer: Problem details: Doing well POD#1 s/p lap right hemicolectomy. Passing gas, tolerating fulls and clears. 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
[2019-05-09] MEDS: PIPERACILLIN-TAZO 3.375 GM/50 ML FROZ.PIGGY IV ×2 (09:34→16:42)
[2019-05-09] MEDS: TAMSULOSIN 0.4 MG CAPSULE PO (09:34)
--- NOTE | 2019-05-09 12:59 | CM.IDA ---
Initial DCP Assessment Note: Pt is a 78 yo male, resident of [place], [place]. Pt is POD#1 from lap hand assist rt hemicolectomy by Dr Campbell. PCP: Dr Xi Roque: [facility] Reviewed chart. Met w/pt and his siblings this morning; brother Eugene ([place]) and his sister Joi ([place]). Pt is in good spirits this morning, sitting up in chair. His family has arranged for someone to be staying w/pt for at least a month. Pt further explains that his neighbors in [place] are extremely supportive and have also offered assist if needed. Pt is indp at baseline, he explains that his just moved into [facility] in [place] on Monday while awaiting a bed at [facility] in [place]. Pt admits to feeling exhausted by caring for his at home, w/advanced dementia, but saddened that his now requires facility placement. Pt expects to have no DC needs and this [employer] has identified no barriers to safe return home. Will plan to follow closely for any DC needs or concerns that arise. SWATI Perez Discharge Planning/Care Management CM Discharge Assessment Start: 05/09/19 12:53 Freq: Status: Active Protocol: Document 05/09/19 12:53 DAVID (Rec: 05/09/19 12:59 DAVID [id number]) Discharge Planning Assessment Assigned Qualifications Examiner SWATI [place] DPOA/Assigned Designee Name Eugene( Brother) Joi ( Sister) Contact Information Eugene: [phone] Joi: [phone] Advance Directives? Yes Advance Directives on File No History Provided By Patient,Family Member Prior Living Arrangements House Household Members none Type of transporation used prior to Drives own vehicle admit Independent with ADL's Yes Is patient alert and oriented? Yes Barriers to Discharge No Discharge Plan Home Transportation Arrangement Family Referrals Initiated None needed Additional Comment Pending medical POC Review Status In Process
--- NOTE | 2019-05-09 14:28 | DIET.PN ---
Dietary Progress Note Assessment: 78y M s/p colectomy referred to nutrition for education on low residue diet per Dr. Vincent. Pt is known to this RD per pre-surgery education for nutrition optimization. Pt has been wt stable for past 1mo, has been drinking daily smoothie containing protein powder. Pt tolerating full liquids, has a brother and sister helping with meals and care once d/c. Pt drinking Ensure Surgery bid per hospital ERAS protocol. HT: 177.8kcm WT: 63.8kg (7% in past 3mo) UBW: 68kg BMI: 20.2 (low for age) Labs: hgb 9.4 L MNA: 8 malnourished Jake: 21 Nutrition Diagnosis: 1. Moderate Acute PCM r/t altered GI function secondary to adenocarcinoma of hepatic flexure aeb pt has 7% unintentional wt loss in 3 mo, BMI 20.2 (low for age), is s/p colectomy, pt had increasing constipation affecting appetite for past several months. 2. altered GI function r/t s/p planned colectomy aeb EGD 1mo ago positive for adenocarcinoma of hepatic flexure. Interventions: 1. Sending ONS Ensure Surgery bid to support kcal and PRO needs post surgery per ERAS as well as to support PCM. 2. Educated pt and family helpers on low residue diet, to follow for 2w then slowly increase fiber as tolerated using handout which they can use as guide for shopping and meal prep. Diet Order: Full liquid EER: 2,000kcal, 75g PRO (1.2g/kg), 2 L fluids. Monitoring/Evaluations: POs, GI sx, ONS tolerance
[2019-05-09] MEDS: GABAPENTIN 100 MG CAPSULE 200 MG PO (21:09)
[2019-05-09] MEDS: PANTOPRAZOLE 20 MG TABLET PO (22:01)
[2019-05-09] MEDS: SODIUM CHLORIDE 0.9% FLUSH 10 ML IV (22:01)
--- NOTE | 2019-05-09 23:36 | PC.NURSE ---
Evening Shift Note- Patient unable to void since barone D/C'ed at 1415. Patient reports no urge to void. Patient bladder scanned with 422cc's urine noted. Patient straight cath'ed with 400cc's urine out. Patient tolerated.
[2019-05-10] MEDS: ACETAMINOPHEN 325 MG TABLET 650 MG PO ×5 (00:08→23:57)
[2019-05-10] MEDS: PIPERACILLIN-TAZO 3.375 GM/50 ML FROZ.PIGGY IV ×3 (01:25→17:53)
[2019-05-10 05:31] VITALS: BP 149/86; PULSE 66; RESP 16; TEMP 36.2; O2SAT 95
[2019-05-10 05:49] LABS: Add Manual Diff / Slide Review NO; Basophils Absolute Auto 0 /uL (0-100); Basophils Percent Auto 0.4 % (0-2); Eosinophils Absolute Auto 100 /uL (0-450); Eosinophils Percent Auto 1.3 % (2-4); Hematocrit 26.9 % (41-53); Hemoglobin 8.8 g/dL (13.5-17.5); Lymphocytes Absolute Auto 1500 /uL (1100-4500); Lymphocytes Percent Auto 27.8 % (25-40); Mean Corpuscular HGB Conc 32.7 % (30-36); Mean Corpuscular Hemoglobin 26.8 PG (26-34); Mean Corpuscular Volume 81.9 fL (80-100); Monocytes Absolute Auto 400 /uL (0-900); Monocytes Percent Auto 8.2 % (3-14); Neutrophils Absolute Auto 3300 /uL (1500-7000); Neutrophils Percent Auto 62.3 % (50-75); Platelet Count 171 X10^3/uL (150-400); Red Blood Cell Count 3.29 X10^6/uL (4.5-5.9); Red Cell Distribution Width 17.6 % (11.6-14.8); White Blood Cell Count 5.4 X10^3/uL (4.5-11.0)
[2019-05-10 05:58] LABS: BUN Creatinine Ratio 16.4 (6-22); Blood Urea Nitrogen 18 mg/dL (9-20); Calcium 8.3 mg/dL (8.4-10.2); Carbon Dioxide 31 mmol/L (22-32); Chloride 107 mmol/L (98-107); Estimated Glomerular Filt Rate > 60.0 mL/min (>60); Glucose 95 mg/dL (80-110); HEMOLYSIS < 15 (0-50); Magnesium 2.1 mg/dL (1.6-2.3); Potassium 4.1 mmol/L (3.4-5.1); Sodium 139 mmol/L (137-145)
--- NOTE | 2019-05-10 06:00 | DI.RAD.S_ITS ---
PROCEDURE: XR CHEST 1V INDICATIONS: left lower lobe consolidation TECHNIQUE: One view of the chest was acquired. COMPARISON: [facility], CR, XR CHEST 1V, 05/09/2019, 6:14. FINDINGS: Surgical changes and devices: None. Lungs and pleura: Focal opacity in the left lung base is decreased in size and may represent resolving pneumonia or atelectasis. No pleural effusions or pneumothorax. Mediastinum: Mediastinal contours appear normal. Heart size is normal. Bones and chest wall: Trace free fluid noted in the right hemidiaphragm which has decreased in volume compared to 05/09/2019. No suspicious bony lesions. Overlying soft tissues appear unremarkable. IMPRESSION: Focal opacity in the left lung base decreased in size compatible with resolving pneumonia or atelectasis. Dictated by: Jessica Dumont MD, PhD on 05/10/2019 at 8:43 Approved by: Jessica Dumont MD, PhD on 05/10/2019 at 8:44
[2019-05-10] MEDS: PANTOPRAZOLE 20 MG TABLET PO ×2 (06:30→21:08)
--- NOTE | 2019-05-10 06:58 | PC.NURSE ---
Patient declines pain, voided 650 our shift, has new orders for type and screen. AM H/H 8.8/26.9.
--- NOTE | 2019-05-10 08:38 | PM.PN.1 ---
Subjective Subjective Date Patient Seen: 05/10/19 Time Patient Seen: 08:38 Interval history: No acute events overnight. The patient passed some dark loose stool, and was able to urinate after the Aguilar was removed. He denies pain or nausea. He says he would like to eat regular food. Exam Vital Signs (past 8 hours): - 05/10/19 05:31 Temperature 97.2 F L Pulse Rate 66 Respiratory Rate 16 Blood Pressure 149/86 H Pulse Oximetry 95 Oxygen Delivery Method Room Air Oxygen Flow Rate 0 Narrative Exam Narrative: CARDIOVASCULAR: Regular rate. No pedal edema. RESPIRATORY: Non-tachypneic, breathing comfortably on room air. GASTROINTESTINAL: Abdomen soft and non-distended; nontender, incision clean dry and intact, dressing changed GENITALURINARY: No flank tenderness. MUSCULOSKELETAL: Equal tone and mass bilaterally. SKIN: Warm, dry, soft, appropriate color for ethnicity. No other lesions, rashes, or wounds. NEURO: Alert and Oriented X 3. No gross sensory deficits, or cognitive issues. PSYCH: Appropriate affect and mood. Objective Labs Result Diagrams: 05/10/19 05:00 05/10/19 05:00 Labs: Laboratory Results - last 24 hr 05/10/19 05/10/19 05/10/19 05:00 05:00 06:50 WBC 5.4 RBC 3.29 L Hgb 8.8 L Hct 26.9 L MCV 81.9 MCH 26.8 MCHC 32.7 RDW 17.6 H Plt Count 171 Neut % (Auto) 62.3 Lymph % (Auto) 27.8 [place] % (Auto) 8.2 Eos % (Auto) 1.3 L Baso % (Auto) 0.4 Neut # (Auto) 3300 Lymph # (Auto) 1500 [place] # (Auto) 400 Eos # (Auto) 100 Baso # (Auto) 0 Sodium 139 Potassium 4.1 Chloride 107 Carbon Dioxide 31 BUN 18 Creatinine 1.10 Estimated GFR > 60.0 BUN/Creatinine Ratio 16.4 Glucose 95 Calcium 8.3 L Magnesium 2.1 Blood Type A Positive Antibody Screen Negative Assessment & Plan Assessment and plan (1) Anemia: Problem details: Chronic anemia with a hemoglobin of 9.4 on admission, down to 8.8, likely due to losses during surgery and IV fluid dilution. However, we will get a type and screen in case he drops below 8. I will recheck a CBC this afternoon to make sure he does not continue to drop. Current visit: No Status: Acute (2) Left lower lobe consolidation: Problem details: Diagnosed on chest x-ray on postop day 1, recognized as left lower lobe consolidation by the radiologist. Started on Zosyn for pneumonia. Repeat chest x-ray today looks similar, with read pending. Patient is breathing comfortably on room air, denies chest pain, denies shortness of breath, no more desats. Current visit: Yes Status: Acute (3) Prostate cancer: Problem details: To be treated in a few months, after he is cleared from his colon cancer, diagnosed prior to admission. Current visit: Yes Status: Acute (4) Colon cancer: Problem details: Doing well POD#2 s/p lap right hemicolectomy and repair of ventral hernia. Passing stool, tolerating full liquid diet. He had some black liquid stool past during the night, which clearly contains blood. He has not passed any more since last evening, so my suspicion that he has a significant bleed at the anastomosis is low, but not 0. We will recheck a CBC mid day, and have a type and screen on hand in case he drop significantly. Explained to him that sometimes people can have an anastomotic bleed, and is these are usually self-limited, and rarely require reoperation, but we need to watch closely and make sure that his hemoglobin recovers. 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
[2019-05-10] MEDS: PSYLLIUM HUSK 1 PACKET PO ×2 (08:55→21:08)
[2019-05-10] MEDS: LACTOBACILLUS ACIDOPHILUS TABLET 1 EACH PO ×2 (08:55→17:53)
[2019-05-10] MEDS: SODIUM CHLORIDE 0.9% FLUSH 10 ML IV ×2 (08:56→21:11)
[2019-05-10] MEDS: TAMSULOSIN 0.4 MG CAPSULE PO (08:56)
[2019-05-10 09:45] VITALS: BP 132/79; PULSE 73; RESP 16; TEMP 36.9; O2SAT 95
--- NOTE | 2019-05-10 11:03 | PC.NURSE ---
Addendum entered by Megha Cavazos R.N. 05/10/19 14:44: Patient tolerated EKG well. Abd binder repositioned. Patient denies SOB, chest pain or pain at this time. Call light in reach. Blood pressure rechecked, WNL. Addendum entered by Megha Cavazos R.N. 05/10/19 14:41: 1350 Patient was up to chair, hypotension noted, patient c/o lightheadedness and some dizziness, denies chest pain, SOB, increased WOB or pain elsewhere. Dr notified, EKG ordered and completed. Patient tolerated well, confirmed lightheadedness ambulating back to bed. Will continue to monitor. Original Note: Patient resting in bed this morning, A/O x3, denies pain at this time. Ambulated to restroom for BM using FWW. Patient denies dizziness or SOB with activity. Abdominal binder is intact, dsg underneath is CDI, bilateral band aids are CDI. Bowel sounds active. Patient reports blood in stool. Patient voiding in toilet. IV is leaking, IV removed, and new IV started at 1000 in left forearm. Patient tolerated well. IV infusing. Call light in reach, patient denies further needs at this time.
[2019-05-10 13:31] LABS: Add Manual Diff / Slide Review NO; Basophils Absolute Auto 0 /uL (0-100); Basophils Percent Auto 0.3 % (0-2); Eosinophils Absolute Auto 100 /uL (0-450); Hematocrit 31.9 % (41-53); Hemoglobin 10.3 g/dL (13.5-17.5); Lymphocytes Absolute Auto 1400 /uL (1100-4500); Mean Corpuscular HGB Conc 32.3 % (30-36); Mean Corpuscular Hemoglobin 26.8 PG (26-34); Mean Corpuscular Volume 82.9 fL (80-100); Monocytes Absolute Auto 300 /uL (0-900); Monocytes Percent Auto 5.4 % (3-14); Neutrophils Absolute Auto 4500 /uL (1500-7000); Neutrophils Percent Auto 71.3 % (50-75); Platelet Count 206 X10^3/uL (150-400); Red Blood Cell Count 3.85 X10^6/uL (4.5-5.9); Red Cell Distribution Width 17.6 % (11.6-14.8); White Blood Cell Count 6.3 X10^3/uL (4.5-11.0)
[2019-05-10 13:52] VITALS: BP 84/54; PULSE 89; RESP 16; TEMP 36.8; O2SAT 95
[2019-05-10 13:54] VITALS: BP 103/58; PULSE 90
[2019-05-10 14:45] VITALS: BP 137/71; PULSE 90
[2019-05-10 19:51] VITALS: BP 99/51; PULSE 84; RESP 18; TEMP 36.9; O2SAT 96
[2019-05-11] VITALS (7 sets, daily range): BP systolic 127–159; BP diastolic 68–83; PULSE 73–81; RESP 14–18; TEMP 36.4–37.3; O2SAT 94–98
[2019-05-11] MEDS: PIPERACILLIN-TAZO 3.375 GM/50 ML FROZ.PIGGY IV ×3 (01:32→17:14)
[2019-05-11] MEDS: SODIUM CHLORIDE 0.9% FLUSH 10 ML IV ×3 (01:32→20:52)
--- NOTE | 2019-05-11 04:26 | PC.NURSE ---
Patient had 400 ml urine, and 700 ml very dark brown,with dark green liquid stool. Not quite black in color. Stool was ensure type consistency with small amounts of pudding consistency mixed in. Patient stated his bloating is gone, and he feels great. VS obtained after trek to and from , slightly elevated 159/79.
[2019-05-11 05:54] LABS: Add Manual Diff / Slide Review NO; Basophils Absolute Auto 0 /uL (0-100); Basophils Percent Auto 0.2 % (0-2); Eosinophils Absolute Auto 200 /uL (0-450); Eosinophils Percent Auto 2.6 % (2-4); Hematocrit 28.2 % (41-53); Hemoglobin 9.3 g/dL (13.5-17.5); Lymphocytes Absolute Auto 1200 /uL (1100-4500); Lymphocytes Percent Auto 19.8 % (25-40); Mean Corpuscular HGB Conc 32.9 % (30-36); Mean Corpuscular Hemoglobin 27.1 PG (26-34); Mean Corpuscular Volume 82.2 fL (80-100); Monocytes Absolute Auto 400 /uL (0-900); Monocytes Percent Auto 7.1 % (3-14); Neutrophils Absolute Auto 4200 /uL (1500-7000); Neutrophils Percent Auto 70.3 % (50-75); Platelet Count 186 X10^3/uL (150-400); Red Blood Cell Count 3.43 X10^6/uL (4.5-5.9); Red Cell Distribution Width 17.5 % (11.6-14.8); White Blood Cell Count 5.9 X10^3/uL (4.5-11.0)
[2019-05-11 06:00] LABS: Blood Urea Nitrogen 18 mg/dL (9-20); Calcium 8.8 mg/dL (8.4-10.2); Carbon Dioxide 31 mmol/L (22-32); Chloride 106 mmol/L (98-107); Estimated Glomerular Filt Rate 58.6 mL/min (>60); Glucose 97 mg/dL (80-110); HEMOLYSIS < 15 (0-50); Magnesium 1.9 mg/dL (1.6-2.3); Potassium 4.3 mmol/L (3.4-5.1); Sodium 140 mmol/L (137-145)
[2019-05-11] MEDS: ACETAMINOPHEN 325 MG TABLET 650 MG PO ×4 (06:31→23:51)
[2019-05-11] MEDS: PANTOPRAZOLE 20 MG TABLET PO ×2 (06:32→20:52)
[2019-05-11] MEDS: LOPERAMIDE 2 MG CAPSULE PO ×2 (06:32→15:44)
[2019-05-11] MEDS: PSYLLIUM HUSK 1 PACKET PO ×2 (08:26→20:52)
[2019-05-11] MEDS: LACTOBACILLUS ACIDOPHILUS TABLET 1 EACH PO ×2 (08:27→17:14)
--- NOTE | 2019-05-11 13:55 | P.PN_ITS ---
Subjective Subjective Date Patient Seen: 05/11/19 Time Patient Seen: 10:30 Interval history: No acute events overnight. Still having loose stool. Clearing up and becoming less black. Exam Vital Signs (past 8 hours): - 05/11/19 08:03 05/11/19 11:19 Temperature 97.6 F 97.6 F Pulse Rate 73 80 Respiratory Rate 14 16 Blood Pressure 145/83 H 139/80 Pulse Oximetry 97 98 Oxygen Delivery Method Room Air Oxygen Flow Rate 0 Narrative Exam Narrative: CARDIOVASCULAR: Regular rate. No pedal edema. RESPIRATORY: Non-tachypneic, breathing comfortably on room air. GASTROINTESTINAL: Abdomen soft and non-distended; nontender, incision clean dry and intact, dressing changed GENITALURINARY: No flank tenderness. MUSCULOSKELETAL: Equal tone and mass bilaterally. SKIN: Warm, dry, soft, appropriate color for ethnicity. No other lesions, rashes, or wounds. NEURO: Alert and Oriented X 3. No gross sensory deficits, or cognitive issues. PSYCH: Appropriate affect and mood. Objective Labs Result Diagrams: 05/11/19 05:20 05/11/19 05:20 Labs: Laboratory Results - last 24 hr 05/11/19 05/11/19 05:20 05:20 WBC 5.9 RBC 3.43 L Hgb 9.3 L Hct 28.2 L MCV 82.2 MCH 27.1 MCHC 32.9 RDW 17.5 H Plt Count 186 Neut % (Auto) 70.3 Lymph % (Auto) 19.8 L [place] % (Auto) 7.1 Eos % (Auto) 2.6 Baso % (Auto) 0.2 Neut # (Auto) 4200 Lymph # (Auto) 1200 [place] # (Auto) 400 Eos # (Auto) 200 Baso # (Auto) 0 Sodium 140 Potassium 4.3 Chloride 106 Carbon Dioxide 31 BUN 18 Creatinine 1.20 Estimated GFR 58.6 L BUN/Creatinine Ratio 15.0 Glucose 97 Calcium 8.8 Magnesium 1.9 Assessment & Plan Assessment and plan (1) Left lower lobe consolidation: Problem details: Diagnosed on chest x-ray on postop day 1, recognized as left lower lobe consolidation by the radiologist. Started on Zosyn for pneumonia. Repeat chest x-ray similar. Improving inspiration on IS. Current visit: Yes Status: Acute (2) Prostate cancer: Problem details: To be treated in a few months, after he is cleared from his colon cancer, diagnosed prior to admission. Current visit: Yes Status: Acute (3) Colon cancer: Problem details: Doing well POD# 3s/p lap right hemicolectomy and repair of ventral hernia. Passing stool, tolerating low residual diet. He had some black liquid stool, which is starting to clear and become more brown, but it is copious and liquid. He was incontinent of stool last evening. He most likely had a self limited anastomotic bleed, which appears to be resolving. 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
[2019-05-12] MEDS: PIPERACILLIN-TAZO 3.375 GM/50 ML FROZ.PIGGY IV ×3 (01:17→17:03)
[2019-05-12 04:50] VITALS: BP 159/89; PULSE 67; RESP 18; TEMP 37.2; O2SAT 96
[2019-05-12 05:10] LABS: Add Manual Diff / Slide Review NO; Basophils Absolute Auto 0 /uL (0-100); Basophils Percent Auto 0.2 % (0-2); Eosinophils Absolute Auto 200 /uL (0-450); Eosinophils Percent Auto 3.8 % (2-4); Hematocrit 28.4 % (41-53); Hemoglobin 9.2 g/dL (13.5-17.5); Lymphocytes Absolute Auto 1700 /uL (1100-4500); Lymphocytes Percent Auto 26.7 % (25-40); Mean Corpuscular HGB Conc 32.2 % (30-36); Mean Corpuscular Hemoglobin 26.7 PG (26-34); Monocytes Absolute Auto 400 /uL (0-900); Monocytes Percent Auto 5.9 % (3-14); Neutrophils Absolute Auto 3900 /uL (1500-7000); Neutrophils Percent Auto 63.4 % (50-75); Platelet Count 208 X10^3/uL (150-400); Red Blood Cell Count 3.43 X10^6/uL (4.5-5.9); Red Cell Distribution Width 17.4 % (11.6-14.8); White Blood Cell Count 6.2 X10^3/uL (4.5-11.0)
[2019-05-12 05:16] LABS: BUN Creatinine Ratio 13.1 (6-22); Blood Urea Nitrogen 17 mg/dL (9-20); Calcium 9.1 mg/dL (8.4-10.2); Carbon Dioxide 29 mmol/L (22-32); Chloride 106 mmol/L (98-107); Estimated Glomerular Filt Rate 53.4 mL/min (>60); Glucose 104 mg/dL (80-110); HEMOLYSIS < 15 (0-50); Magnesium 1.9 mg/dL (1.6-2.3); Potassium 4.4 mmol/L (3.4-5.1); Sodium 139 mmol/L (137-145)
[2019-05-12] MEDS: ACETAMINOPHEN 325 MG TABLET 650 MG PO ×3 (06:12→17:50)
[2019-05-12] MEDS: PANTOPRAZOLE 20 MG TABLET PO ×2 (06:47→20:05)
[2019-05-12 08:00] VITALS: BP 153/84; PULSE 67; RESP 17; TEMP 36.8; O2SAT 99
[2019-05-12] MEDS: LOPERAMIDE 2 MG CAPSULE PO ×3 (09:59→20:04)
[2019-05-12] MEDS: LACTOBACILLUS ACIDOPHILUS TABLET 1 EACH PO ×2 (09:59→17:03)
[2019-05-12] MEDS: PSYLLIUM HUSK 1 PACKET PO ×2 (09:59→20:05)
[2019-05-12] MEDS: SODIUM CHLORIDE 0.9% FLUSH 10 ML IV ×2 (10:00→20:05)
[2019-05-12 12:00] VITALS: BP 139/75; PULSE 69; RESP 16; TEMP 36.9; O2SAT 98
--- NOTE | 2019-05-12 16:55 | PM.PN.1 ---
Subjective Subjective Date Patient Seen: 05/12/19 Time Patient Seen: 20:24 Interval history: No acute events overnight. Pt having more formed controllable stool, although still loose. Tolerating a diet. Pain controlled on Tylenol. Exam Vital Signs (past 8 hours): - 05/12/19 12:00 Temperature 98.4 F Pulse Rate 69 Respiratory Rate 16 Blood Pressure 139/75 Pulse Oximetry 98 Oxygen Delivery Method Room Air Oxygen Flow Rate 0 Narrative Exam Narrative: CARDIOVASCULAR: Regular rate. No pedal edema. RESPIRATORY: Non-tachypneic, breathing comfortably on room air. GASTROINTESTINAL: Abdomen soft and non-distended; nontender, incision clean dry and intact, dressing changed GENITALURINARY: No flank tenderness. MUSCULOSKELETAL: Equal tone and mass bilaterally. SKIN: Warm, dry, soft, appropriate color for ethnicity. No other lesions, rashes, or wounds. NEURO: Alert and Oriented X 3. No gross sensory deficits, or cognitive issues. PSYCH: Appropriate affect and mood. Objective Labs Result Diagrams: 05/12/19 04:40 05/12/19 04:40 Labs: Laboratory Results - last 24 hr 05/12/19 05/12/19 04:40 04:40 WBC 6.2 RBC 3.43 L Hgb 9.2 L Hct 28.4 L MCV 83.0 MCH 26.7 MCHC 32.2 RDW 17.4 H Plt Count 208 Neut % (Auto) 63.4 Lymph % (Auto) 26.7 [place] % (Auto) 5.9 Eos % (Auto) 3.8 Baso % (Auto) 0.2 Neut # (Auto) 3900 Lymph # (Auto) 1700 [place] # (Auto) 400 Eos # (Auto) 200 Baso # (Auto) 0 Sodium 139 Potassium 4.4 Chloride 106 Carbon Dioxide 29 BUN 17 Creatinine 1.30 H Estimated GFR 53.4 L BUN/Creatinine Ratio 13.1 Glucose 104 Calcium 9.1 Magnesium 1.9 Assessment & Plan Assessment and plan (1) Left lower lobe consolidation: Problem details: Diagnosed on chest x-ray on postop day 1, recognized as left lower lobe consolidation by the radiologist. Started on Zosyn for pneumonia. Repeat chest x-ray similar. Improving inspiration on IS. Current visit: Yes Status: Acute (2) Prostate cancer: Problem details: To be treated in a few months, after he is cleared from his colon cancer. Was diagnosed prior to admission. Current visit: Yes Status: Acute (3) Internal hemorrhoids: Current visit: No Status: Acute (4) Anemia: Problem details: Stable near baseline at 9.2 today Current visit: No Status: Acute (5) Colon cancer: Problem details: Doing well POD# 4 s/p lap right hemicolectomy and repair of ventral hernia. Passing stool, tolerating low residual diet. He had some black liquid stool, which is starting to clear and become more brown, but it is copious and liquid. He is increasing fluid intake to remain hydrated. His creatinine is slightly up today. His hgb is stable. He is not having incontinence of stool in the last 12 hours. 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
--- NOTE | 2019-05-12 18:55 | PC.NURSE ---
Addendum entered by Gregoria Fields R.N. 05/12/19 23:33: One stool this evening shift. Scd's on when desiring to sleep in bed. Removed when pt states desires to ambulate. Denied pain this shift. Original Note: Pt up in recliner visiting with visitors @ beginning of shift. Denies pain. Tolerating soft diet well without complaints. Admits to passing small amounts of flatus. Ambulates in hallway with walker independently and returned to bed. Warm blanket to abdomen at pt's request. [place] to abdomen are open to air without drainage. Wound edges from incisional site @ umbilicus and lap sites across abdomen are well approximated. Bowel tones present. Admits to scant amount sputum, yellow in color with cough. Breath sounds clear. Intermittent cough.
[2019-05-12 20:00] VITALS: BP 149/71; PULSE 77; RESP 20; TEMP 36.2; O2SAT 99
[2019-05-12 20:09] VITALS: BP 149/71; PULSE 77; RESP 20; TEMP 36.2; O2SAT 99
[2019-05-13] VITALS: BP 152/89; PULSE 76; RESP 18; TEMP 36.9; O2SAT 97
[2019-05-13] MEDS: PIPERACILLIN-TAZO 3.375 GM/50 ML FROZ.PIGGY IV (00:42)
[2019-05-13] MEDS: ACETAMINOPHEN 325 MG TABLET 650 MG PO ×2 (00:42→06:25)
[2019-05-13 03:51] VITALS: BP 176/77; PULSE 70; RESP 18; TEMP 36.6; O2SAT 98
[2019-05-13 05:28] LABS: Add Manual Diff / Slide Review NO; Basophils Absolute Auto 0 /uL (0-100); Basophils Percent Auto 0.4 % (0-2); Eosinophils Absolute Auto 200 /uL (0-450); Eosinophils Percent Auto 4.4 % (2-4); Hemoglobin 8.8 g/dL (13.5-17.5); Lymphocytes Absolute Auto 1200 /uL (1100-4500); Lymphocytes Percent Auto 27.3 % (25-40); Mean Corpuscular HGB Conc 32.5 % (30-36); Mean Corpuscular Hemoglobin 26.8 PG (26-34); Mean Corpuscular Volume 82.5 fL (80-100); Monocytes Absolute Auto 300 /uL (0-900); Monocytes Percent Auto 6.5 % (3-14); Neutrophils Absolute Auto 2800 /uL (1500-7000); Neutrophils Percent Auto 61.4 % (50-75); Platelet Count 206 X10^3/uL (150-400); Red Blood Cell Count 3.27 X10^6/uL (4.5-5.9); Red Cell Distribution Width 17.5 % (11.6-14.8); White Blood Cell Count 4.5 X10^3/uL (4.5-11.0)
[2019-05-13 05:36] LABS: BUN Creatinine Ratio 13.8 (6-22); Blood Urea Nitrogen 18 mg/dL (9-20); Calcium 9.3 mg/dL (8.4-10.2); Carbon Dioxide 30 mmol/L (22-32); Chloride 107 mmol/L (98-107); Estimated Glomerular Filt Rate 53.4 mL/min (>60); Glucose 100 mg/dL (80-110); HEMOLYSIS < 15 (0-50); Magnesium 2.1 mg/dL (1.6-2.3); Potassium 4.5 mmol/L (3.4-5.1); Sodium 141 mmol/L (137-145)
[2019-05-13] MEDS: PANTOPRAZOLE 20 MG TABLET PO (06:27)
[2019-05-13 07:46] VITALS: BP 154/82; PULSE 73; RESP 16; TEMP 36.4; O2SAT 99
--- NOTE | 2019-05-13 08:51 | P.DS_ITS ---
History of Present Illness History of Present Illness Chief complaint: Laparoscopically Assisted Colectomy Discharge Providers Provider Date of admission: 05/08/19 07:10 Discharge Date: 05/13/19 Primary care physician: Alanis Layne MD Consults: 05/08/19 15:34 Consult to Dietitian, Adult Routine Comment: Reason For Exam: WILL GO HOME ON LOW RESIDUAL DIET Consult to Discharge Planning Routine Comment: Discharge provider: Grace Campbell MD Summary Hospital Course Discharge Diagnosis: Colon cancer Hospital Course: Right hemicolectomy on 05/08. Post op course went well, with early return of bowel function, and minimal pain. The patient had copious loose stoole beginning on POD#2. He was treated with probiotic, metamucil, and imodium. His stool gradually improved by POD#5 to the point he could maintain continence and perform normal ADL's at home. Status at Discharge Cognitive/behavioral status at discharge: oriented Functional status at discharge: uses cane/walker Overall status at discharge: patient is progressing back to baseline Time Spent with Patient Time spent: Greater than 30 minutes Exam Vital Signs (past 8 hours): - 05/13/19 03:51 Temperature 97.9 F Pulse Rate 70 Respiratory Rate 18 Blood Pressure 176/77 H Pulse Oximetry 98 Oxygen Delivery Method Room Air Oxygen Flow Rate 0 Narrative Exam Narrative: CARDIOVASCULAR: Regular rate. No pedal edema. RESPIRATORY: Non-tachypneic, breathing comfortably on room air. GASTROINTESTINAL: Abdomen soft and non-distended; nontender, incision clean dry and intact, dressing changed GENITALURINARY: No flank tenderness. MUSCULOSKELETAL: Equal tone and mass bilaterally. Abdomen: SNTND, midline incision c/d/i/a SKIN: Warm, dry, soft, appropriate color for ethnicity. No other lesions, rashes, or wounds. NEURO: Alert and Oriented X 3. No gross sensory deficits, or cognitive issues. PSYCH: Appropriate affect and mood. Objective Labs Result Diagrams: 05/13/19 04:50 05/13/19 04:50 Labs: Laboratory Results - last 24 hr 05/13/19 05/13/19 04:50 04:50 WBC 4.5 RBC 3.27 L Hgb 8.8 L Hct 27.0 L MCV 82.5 MCH 26.8 MCHC 32.5 RDW 17.5 H Plt Count 206 Neut % (Auto) 61.4 Lymph % (Auto) 27.3 [place] % (Auto) 6.5 Eos % (Auto) 4.4 H Baso % (Auto) 0.4 Neut # (Auto) 2800 Lymph # (Auto) 1200 [place] # (Auto) 300 Eos # (Auto) 200 Baso # (Auto) 0 Sodium 141 Potassium 4.5 Chloride 107 Carbon Dioxide 30 BUN 18 Creatinine 1.30 H Estimated GFR 53.4 L BUN/Creatinine Ratio 13.8 Glucose 100 Calcium 9.3 Magnesium 2.1 Discharge Plan Discharge Plan Patient Disposition: Home Discharge comment: 1) Drink plenty of water to keep yourself hydrated. If you feel dry mouth or notice your urine becomes darker, increase your fluid intake. 2) If you are feeling dehydrated, or your stool output is unmanageable, you may increase the Immodium and Metamucil gradually for thicker output. To start: Immodium 2mg three times daily -- gradually increase to 4mg three times per day if needed Metamucil (or preferred fiber supplement) 2tspn in 8 oz water twice daily -- may go up to three times daily if needed 3) Take your Tylenol as needed so you are able to cough, take deep breaths, sleep well, and get up to walk around. Do not take more than 1000mg per dose, or more than 3000mg in 24 hours. 4) Keep active with light activity such as gentle exercise and taking walks. Avoid lifting over 10lbs, abdominal core work, or very strenuous activity. Avoid being sedentary for prolonged periods. 5) You may shower. After showering, keep a dry dressing over your incisional wounds as needed. If you notice any redness or drainage from the wounds, call our office and speak to Dr. Campbell, or the doctor train control electronic technician. 6) If you have any other concerns about your surgery or post operative care, please call the surgeon's office number and speak to the office nurse or the surgeon train control electronic technician. 7) If you become severely ill with significant chest pain, shortness of breath, significant bleeding, or other life threatening symptoms, please call 911 or go to the ER right away. 8) complete your antibiotic treatment for you left lower lobe consolidation of your lung. Discharge orders & Medications Prescriptions: New Metamucil (sugar) Powder 2 tsp PO BID Qty: 1254 RF: 0 loperamide [Imodium A-D] 2 mg tablet 2 mg PO TID Qty: 60 RF: 0 Culturelle 10 billion cell capsule 1 cap PO BID Qty: 60 RF: 6 omeprazole 20 mg capsule,delayed release(DR/EC) 20 mg PO BID Qty: 60 RF: 6 amoxicillin-pot clavulanate [Augmentin] 875-125 mg tablet 1 tab PO Q12H Qty: 10 RF: 0 ferrous sulfate [iron] 325 mg (65 mg iron) tablet 325 mg PO BID Qty: 60 RF: 0 Continued multivitamin Capsule 1 cap PO DAILY RF: 0 mecobalamin (vitamin B12) 1,000 mcg tablet,disintegrating 1,000 mcg SL DAILY RF: 0 Discontinued magnesium citrate Solution 296 ml PO .per instructions Qty: 592 RF: 0 turmeric 400 mg capsule 400 mg PO DAILY RF: 0 neomycin 500 mg tablet 1 gram PO TID Qty: 6 RF: 0 Other Ambulatory Orders: Complete Blood Count NO DIFF (Stat) Timeframe: [id number] Facility: [facility] - Location: Laboratory Ordered By: Grace Campbell Follow up/Referrals: Alanis Layne MD [Primary Care Provider] - Grace Campbell MD [Physician] - 05/23/19 10:30 am (Follow up on May 21 or . Call if you do not already have an appointment with Dr. Campbell.) Diet/Activity/Treatments Diet: Diet as Tolerated Diet comment: Low residual, low fiber Activity: As above Skin/Wound/Dressing Care Report to your healthcare provider any signs of infection, such as:: chills, fever, night sweats, increased pain, unusual drainage and unusual redness Visit Report/Discharge Packet Instructions: Low-Fiber/Low-Residue Diet, DI for Colectomy, [facility]: Wound Care Discharge Data Primary Care Provider: Alanis Layne Discharges patient from system. Discharge Date/Time: 05/13/19 11:00 Quality VTE Deep Vein Thrombosis/Pulmonary Embolism Present on Admission: No
[2019-05-13] MEDS: PSYLLIUM HUSK 1 PACKET PO (10:28)
[2019-05-13] MEDS: LOPERAMIDE 2 MG CAPSULE PO (10:28)
[2019-05-13] MEDS: LACTOBACILLUS ACIDOPHILUS TABLET 1 EACH PO (10:28)
--- NOTE | 2019-05-13 11:05 | PC.NURSE ---
discharge pt denies pain. up independently in room. PIV removed prior to d/c. D/c instructions provided to pt and his brother. aware that Rx were sent to [facility] in [facility]. Blood draw scheduled for monday and pt aware of f/u apt with Dr Nunez on 05/23. Pt left in w/c with [employer] escort to car with his brother. Pt states he took all belongings with him.
--- NOTE | 2019-05-13 11:14 | CM.DPC ---
DCP Discharge Home Per Surgeon, pt is medically stable to d/c home today with no identified barriers to discharge. Per RN, no concerns at this time. Plan: Patient to d/c home via family POV and no SW needs at this time. SWATI Perdue
== END 2019-05-13 11:00 | disposition home or self-care (01) | DRG 329 ==
LOC: AC 07:58 → ICU 08:29 → AC 09:27
PROVIDERS: Admitting Provider Surgery; PCP Family Medicine; Referring Provider Surgery; Visit Provider Surgery
PROC: 0DTE0ZZ Resection of Large Intestine, Open Approach (ICD-10-PCS; principal; 2019-05-08 08:30)
DX: C18.3 Malignant neoplasm of hepatic flexure (principal); J18.9 Pneumonia, unspecified organism; E44.0 Moderate protein-calorie malnutrition; D63.0 Anemia in neoplastic disease; K43.9 Ventral hernia without obstruction or gangrene; Z68.20 Body mass index [BMI] 20.0-20.9, adult
CPT/HCPCS: 36415; 44204; 71045; 80048; 83735; 85025; 86850; 86900; 86901; 93005; 94762; C9290; J0330; J1100; J1170; J1644; J2250; J2405; J2543; J2704; J3010; J3410

== ENCOUNTER → 2019-05-16 15:08 | Outpatient (CLI) | payer MEDICARE, OTHER, SELFPAY ==
[2019-05-08 19:27] VITALS: BMI 20.2
[2019-05-16 15:31] LABS: Hematocrit 26.1 % (41-53); Hemoglobin 8.6 g/dL (13.5-17.5); Mean Corpuscular HGB Conc 32.9 % (30-36); Mean Corpuscular Hemoglobin 27.3 PG (26-34); Mean Corpuscular Volume 82.9 fL (80-100); Platelet Count 269 X10^3/uL (150-400); Red Blood Cell Count 3.15 X10^6/uL (4.5-5.9); Red Cell Distribution Width 17.5 % (11.6-14.8); White Blood Cell Count 5.5 X10^3/uL (4.5-11.0)
== END ==
PROVIDERS: PCP Family Medicine; Referring Provider Surgery; Visit Provider Surgery
DX: D64.9 Anemia, unspecified (principal)
CPT/HCPCS: 36415; 85027

== ENCOUNTER → 2019-07-10 09:54 | Outpatient (CLI) | payer MEDICARE, OTHER, SELFPAY ==
[2019-05-08 19:27] VITALS: BMI 20.2
--- NOTE | 2019-07-10 | DI.CT.S_ITS ---
PROCEDURE: CT CHEST ABD PEL W CON INDICATIONS: Restaging malignant neoplasm of prostate TECHNIQUE: After the administration of oral and intravenous contrast, 5 mm thick sections acquired from the lung apices to the symphysis. 5 mm coronal and sagittal reformats were performed, with additional 7 mm coronal MIP reformats through the lungs. For radiation dose reduction, the following was used: automated exposure control, adjustment of mA and/or kV according to patient size. COMPARISON: [facility], CT, CT CHEST ABD PEL W CON, 03/29/2019, 12:39. FINDINGS: Image quality: Excellent. CHEST: Lungs and pleura: No acute airspace opacities. No pleural effusions or pneumothorax. Central and peripheral airways appear patent and normal in caliber. Mediastinum: Heart size is normal. No pericardial effusion. No mediastinal or hilar adenopathy by size criteria. Thoracic aorta and central pulmonary arteries are normal in size. Esophagus is normal in caliber. No hiatal hernia. Chest wall: No axillary or supraclavicular adenopathy by size criteria. Thyroid gland appears normal. ABDOMEN: Solid organs: Liver is normal in size and enhancement. Gallbladder appears normal. Biliary system is non dilated. Pancreas enhances normally. Spleen is normal in size and enhancement. No adrenal nodules. Kidneys demonstrate normal size and enhancement, without hydronephrosis. Peritoneum and bowel: Bowel loops demonstrate normal wall thickness and caliber. No free fluid or air. There is moderate colonic obstipation. Upper gastric wall in the area of prior CT concern appears normal. Nodes and vessels: No retroperitoneal or mesenteric adenopathy by size criteria. Aorta and inferior vena cava are normal in size. Miscellaneous: No ventral hernias. PELVIS: Genitourinary: Bladder wall thickness is normal. Miscellaneous: No inguinal hernias or adenopathy. A right colonic enteric staple line is seen within the pelvis, associated with an axial level of the fat of the right iliac crest. No operative complication or evidence of residual mass lesion is found. The staple line was not present 03/29/19. Bones: No suspicious bony lesions. No vertebral body compression fractures. IMPRESSION: 1. Expected postsurgical change right lower quadrant after partial colectomy in that area. 2. No metastatic disease or adenopathy is found. Several scattered hepatic cysts are noted over the liver. 3. Current clinical history indicates prostate carcinoma, with this study showing no evidence of osseous metastatic disease or adenopathy. The prostate gland area visualized appears normal by CT criteria. Dictated by: Jase Pan M.D. on 07/10/2019 at 13:10 Approved by: Jase Pan M.D. on 07/10/2019 at 13:18
--- NOTE | 2019-07-10 | DI.NM.S_ITS ---
PROCEDURE: NM BONE SCAN WHOLE BODY RADIOPHARMACEUTICAL: 21.7 mCi Tc-99m MDP IV. INDICATIONS: Malignant neoplasm of prostate TECHNIQUE: Delayed whole-body scintigrams were obtained approximately 3-4 hours after intravenous injection of radiotracer. Anterior and posterior views were acquired from vertex to feet. COMPARISON: None. 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 What appears to represent L5 reactive degenerative change on the frontal projection is slightly greater on the right than the left. No metastatic disease is suspected. IMPRESSION: Degenerative changes as discussed, and each shoulder and the lower lumbosacral spine no evidence of metastatic disease. Dictated by: Jase Pan M.D. on 07/10/2019 at 14:34 Approved by: Jase Pan M.D. on 07/10/2019 at 14:36
[2019-07-10 10:31] LABS: BUN Creatinine Ratio 24.3 (6-22); Blood Urea Nitrogen 26 mg/dL (9-20); Calcium 9.3 mg/dL (8.4-10.2); Carbon Dioxide 27 mmol/L (22-32); Chloride 107 mmol/L (98-107); Estimated Glomerular Filt Rate > 60.0 mL/min (>60); Glucose 103 mg/dL (80-110); HEMOLYSIS < 15 (0-50); Potassium 4.5 mmol/L (3.4-5.1); Sodium 139 mmol/L (137-145)
--- NOTE | 2019-07-16 10:55 | ONC.MSW ---
Description: Initial Referral Navigation T/C Reason for Referral: Colon Cancer-Post hemicolectomy surgery Activity: Called pt to confirm that we've received his referral, introduce myself as the navigator, and briefly explained the ongoing availability of assistance, support, and resource referrals. Pt states that he is recovering well after having had his surgery-no immediate needs/concerns identified at this time. Confirmed his initial visit time for 07/22 at 2:00pm, 1:40pm check-in time.
== END ==
PROVIDERS: PCP Family Medicine; Referring Provider Specialist; Visit Provider Specialist
DX: C61 Malignant neoplasm of prostate (principal); K76.89 Other specified diseases of liver; K59.00 Constipation, unspecified; M19.011 Primary osteoarthritis, right shoulder; M19.012 Primary osteoarthritis, left shoulder; M47.817 Spondylosis without myelopathy or radiculopathy, lumbosacral region; Z90.49 Acquired absence of other specified parts of digestive tract
CPT/HCPCS: 36415; 71260; 74177; 78306; 80048; A9503; Q9967

== ENCOUNTER → 2019-07-23 13:39 | Oncology outpatient (ONC) | payer MEDICARE, OTHER, SELFPAY ==
[2019-05-08 19:27] VITALS: BMI 20.2
[2019-07-23 14:22] VITALS: BP 200/75; PULSE 55; RESP 18; TEMP 36.9; O2SAT 100
--- NOTE | 2019-07-23 14:30 | ONC.CONS ---
History of Present Illness - Data of Consult Patient: new to practice Consult date: 07/23/19 Requesting Physician: Grace Alfaro Primary Care Provider: Alanis Layne MD - Consult Narrative Reason for consult: Right olon cancer and prostate cancer Narrative: Kevin Henriquez is a 78 year old male. He presented with constipation and irregular irregular bowel movement. He was seen by his PCP Dr Layne and was found to have anemia and positive for iFOB testing. CBC on 02/05/2019 showed WBC 4.7, H/H 11.3/25.1, PLT 222. Ferritin 5 ng/ml. In addition, the PSA was 14.6. [facility] patient was referred to [facility] and to [facility]. Eros Alfaro saw the patient and on 03/26/2019, Dr. Campbell performed EGD/C-scope. It showed right hepatic flexure mass which was biopsy proven to be invasive adenocarcinoma. In addition. Ambrocio's esophagus was also biopsy proven. On March 29, 2019, patient underwent CT of chest abdomen pelvis. It showed no visualized evidence of metastatic disease. There were multiple hepatic cysts. There was markedly thickened stomach. He was then referred to GI for EUS with biopsy to evaluate the area of gastric wall thickening. On 05/01/2019, Dr. Jamin Maria at [facility] performed upper EUS. Biopsies from the antral fold and biopsy of the stomach randomly showed no evidence of intestinal metaplasia and dysplasia. And also no evidence of H. pylori infection. On 05/08/2019, Dr. Campbell performed laparoscopic hand assisted right hemicolectomy. The surgical pathology showed invasive adenocarcinoma, moderately differentiated, located at hepatic flexure, measuring 3.6 cm in greatest dimension, without macroscopic tumor perforation, with invasion of muscularis propria, all margins uninvolved, without lymphovascular invasion, without perineural invasion, with low score (0-4) tumor abutting, without tumor deposits, without lymph nodes involvement (0/31), staged pT2 pN0. Immunohistochemical studies showed loss of MLH1 and PMS2, with intact nuclear expression of MSH2 and MSH6. Molecular studies showed BRAF V600E mutation positive. On 04/05/2019, patient was found also to have an elevated serum PSA level of 16.5. He has been followed by Dr. Lorenz. On July 10, 2019, bone scan showed no evidence of bone metastasis. He saw Dr. Lorenz last Monday, and according to patient, androgen deprivation therapy will be started soon. Patient reports pain?: No Home Medications and Allergies Home Medications Medication Instructions Recorded Confirmed Type mecobalamin (vitamin B12) 1,000 1,000 mcg SL DAILY 03/01/19 07/23/19 History mcg disintegrating tablet,sublingual multivitamin 1 cap PO DAILY 03/01/19 07/23/19 History omeprazole 20 mg PO DAILY 07/23/19 07/23/19 History Allergies Allergy/AdvReac Type Severity Reaction Status Date / Time ciprofloxacin AdvReac Intermediate Agitated Verified 05/23/19 10:20 Medical History - Medical, Surgical, Family History Medical History: Medical History (Last Reviewed 05/23/19 @ 13:55 by Grace Campbell MD) Anemia Constipation Elevated cholesterol Fecal occult blood test positive Gastric wall thickening 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 Mass of hepatic flexure of colon Stress at home Surgical History: Surgical History (Last Reviewed 05/23/19 @ 13:55 by Grace Campbell MD) History of colonoscopy History of esophagogastroduodenoscopy (EGD) History of tympanoplasty Hx of bilateral cataract extraction Hx of tonsillectomy Family History: Family History (Last Reviewed 05/23/19 @ 13:55 by Grace Campbell MD) Father Heart disease Brother Cancer - Social History Smoking Status: Never smoker Substance Use Type: does not use Alcohol Intake: current (red wine) Review of Systems - Patient Self-Reported Symptoms SR Cardiovascular issues: Dizzy/lightheaded All systems PM: reviewed and no additional remarkable complaints except as stated (those mentioned in HPI and SR above.) Exam Vital signs: Last Vital Signs Temp 98.4 F 07/23/19 14:22 Pulse 55 L 07/23/19 14:22 Resp 18 07/23/19 14:22 BP 200/75 H 07/23/19 14:22 Pulse Ox 100 07/23/19 14:22 - Constitutional positive no acute distress, positive average body habitus, positive chronically ill appearing, positive cooperative - Routine HEENT Exam Head: Present: normocephalic, atraumatic Eye: Present: EOMI, PERRL, normal accommodation. Absent: conjunctival icterus ENT: Present: mucous membranes moist - Routine Neck Exam Present: supple. Absent: lymphadenopathy, thyromegaly - Routine Chest/Breast/Axilla Exam Axillae: Absent: lymphadenopathy - Routine Respiratory Exam Present: Clear to auscultation bilaterally. Absent: accessory muscle use, wheezes - Routine Cardiovascular Exam Present: RRR, S1, S2. Absent: murmur, gallop, rubs - Routine Abdominal Exam Present: soft. Absent: organomegaly - Routine Extremities Exam Absent: edema - Routine Neurological Exam Present: alert, oriented X3, CN II-XII intact. Absent: sensory deficit, motor deficit - Routine Psychiatric Exam Present: normal affect, normal thought process Results - Labs Reviewed. See HPI. - Imaging Additional studies: Procedures Repair Abdominal Wall, Open Approach (05/08/19) Resection of Right Large Intestine, Open Approach (05/08/19) Assessment and Plan (1) Prostate cancer He was found to have an elevated serum PSA level in late 2018. Currently he is being followed by [facility]. According to patient, patient underwent biopsy and was diagnosed with prostate cancer. CT of the chest abdomen and pelvis showed no distant metastasis. Bone scan in June 2019 showed no evidence of bone metastasis. He is about to start androgen deprivation therapy under the care of Dr. Lorenz. Plan: 1. Folllow up with Dr. Lorenz. 2. XRT therpay as recommended by Dr. Lorenz. (2) Colon cancer Kevin presented with anemia and positive stool occult blood in late 2018. He was diagnosed with liver flexure colon cancer by C-scope with biopsy on 03/26/2019. He then underwent laparoscopic hand assisted right hemicolectomy on 05/08/2019. Final pathology showed pT2 pN0 BRAF V600E(+), dMMR, hepatic flexure moderately differentiated invasive adenocarcinoma without macroscopic tumor perforation, without lymphovascular invasion, without perineural invasion, and without lymph nodes involvement (0/), staged pT2 pN0. I talked with the patient that I completely agree with Dr. Campbell that no adjuvant chemotherapy would be indicated. I agree with continued active surveillance. Dr. Campbell will follow-up on the patient. Plan: Follow up with Dr. Campbell, as planned.
--- NOTE | 2019-07-23 14:53 | ONC.MSW ---
Description: New Pt F/F Visit Activity: Met with pt prior to his provider visit in order to meet f/f, offer services card, and assess concerns/immediate needs. Pt presents as anxious, states that he often has high blood pressure and anxiety, however walks 5-miles per day as his way of treating it. He expresses feeling nervous about what's to come, this is his second cancer diagnosis. CORNETIST briefly provided support for coping and adjustment to new diagnosis. He continued to demonstrate signs of anxiety/nervousness, was clearly not wanting to make much eye contact. CORNETIST ended the visit and agreed to talk with him again once his treatment plan has been established, his blood pressure was over 200 already, and CORNETIST did not want to exacerbate his anxiousness during today's visit.
== END ==
LOC: ONC 13:41
PROVIDERS: PCP Family Medicine; Referring Provider Family Medicine; Visit Provider Internal Medicine Hematology & Oncology
DX: C18.3 Malignant neoplasm of hepatic flexure (principal); C61 Malignant neoplasm of prostate; D64.9 Anemia, unspecified; K59.00 Constipation, unspecified; E78.00 Pure hypercholesterolemia, unspecified
CPT/HCPCS: 99205; 99215

== ENCOUNTER → 2019-08-20 14:57 | Outpatient (CLI) | payer MEDICARE, OTHER, SELFPAY ==
[2019-05-08 19:27] VITALS: BMI 20.2
[2019-08-20 17:04] LABS: Prostate Specific Antigen 2.01 ng/mL (0.10-4.00)
== END ==
PROVIDERS: PCP Family Medicine; Referring Provider Specialist; Visit Provider Specialist
DX: C61 Malignant neoplasm of prostate (principal)
CPT/HCPCS: 36415; 84153

== ENCOUNTER → 2019-09-20 13:40 | Outpatient (CLI) | payer MEDICARE, OTHER, SELFPAY ==
[2019-05-08 19:27] VITALS: BMI 20.2
[2019-09-20 15:07] LABS: Prostate Specific Antigen 1.41 ng/mL (0.10-4.00)
== END ==
PROVIDERS: PCP Family Medicine; Referring Provider Specialist; Visit Provider Specialist
DX: C61 Malignant neoplasm of prostate (principal)
CPT/HCPCS: 36415; 84153

== ENCOUNTER → 2019-10-07 13:44 | Outpatient (CLI) | payer MEDICARE, OTHER, SELFPAY ==
[2019-10-01 14:30] VITALS: BMI 20.2
[2019-10-07 16:31] LABS: Prostate Specific Antigen 1.37 ng/mL (0.10-4.00)
== END ==
PROVIDERS: Specialist; PCP Family Medicine; Referring Provider Surgery; Visit Provider Surgery
DX: C61 Malignant neoplasm of prostate (principal); C18.9 Malignant neoplasm of colon, unspecified
CPT/HCPCS: 36415; 82378; 84153

== ENCOUNTER → 2019-10-24 14:43 | Outpatient (CLI) | payer MEDICARE, OTHER, SELFPAY ==
[2019-10-01 14:30] VITALS: BMI 20.2
[2019-10-24 17:37] LABS: Prostate Specific Antigen 1.17 ng/mL (0.10-4.00)
== END ==
PROVIDERS: Surgery; PCP Family Medicine; Referring Provider Specialist; Visit Provider Specialist
DX: C61 Malignant neoplasm of prostate (principal); C18.9 Malignant neoplasm of colon, unspecified; K22.70 Barrett's esophagus without dysplasia
CPT/HCPCS: 36415; 82378; 84153; 99213

== ENCOUNTER → 2019-11-28 13:15 | Outpatient (CLI) | payer MEDICARE, OTHER, SELFPAY ==
[2019-10-01 14:30] VITALS: BMI 20.2
[2019-11-28 15:04] LABS: Prostate Specific Antigen 1.08 ng/mL (0.10-4.00)
== END ==
PROVIDERS: PCP Family Medicine; Referring Provider Specialist; Visit Provider Specialist
DX: C61 Malignant neoplasm of prostate (principal)
CPT/HCPCS: 36415; 84153

== ENCOUNTER → 2020-01-08 15:22 | Outpatient (CLI) | payer MEDICARE, OTHER, SELFPAY ==
[2019-10-01 14:30] VITALS: BMI 20.2
[2020-01-08 16:19] LABS: Estimated Glomerular Filt Rate > 60.0 mL/min (>60)
[2020-01-08 16:51] LABS: Carcinoembryonic Antigen 3.1 ng/mL (0.1-3.0)
== END ==
PROVIDERS: PCP Family Medicine; Referring Provider Surgery; Visit Provider Surgery
DX: C18.9 Malignant neoplasm of colon, unspecified (principal)
CPT/HCPCS: 36415; 82378; 82565

== ENCOUNTER → 2020-01-10 10:51 | Outpatient (CLI) | payer MEDICARE, OTHER, SELFPAY ==
[2019-10-01 14:30] VITALS: BMI 20.2
--- NOTE | 2020-01-10 10:53 | DI.CT.S_ITS ---
PROCEDURE: CT ABDOMEN PELVIS W CON INDICATIONS: Surveillance for colon cancer TECHNIQUE: After the administration of oral and intravenous contrast, 5 mm thick sections acquired from the diaphragms to the symphysis. 5 mm thick coronal and sagittal reformats were performed. For radiation dose reduction, the following was used: automated exposure control, adjustment of mA and/or kV according to patient size. COMPARISON: [facility], CT, CT CHEST ABD PEL W CON, 07/10/2019, 11:04. FINDINGS: Image quality: Excellent. ABDOMEN: Lung bases: Lung bases are clear. Heart size is normal. Solid organs: Liver is normal in size and enhancement. Again noted are multiple hepatic cysts. No suspicious liver masses. Gallbladder is unremarkable . Biliary system is non-dilated. Pancreas enhances normally. Spleen is normal in size and enhancement. No adrenal nodules. Kidneys are normal in size and enhancement, without hydronephrosis. Peritoneum and bowel: Stomach, small bowel, and colon loops are normal in caliber and wall thickness. No free fluid or air. Again noted are changes of right colectomy. Nodes and vessels: No retroperitoneal or mesenteric adenopathy. Aorta and inferior vena cava are normal in caliber. Diffuse atherosclerotic calcifications in the aorta. Miscellaneous: No ventral hernias. PELVIS: Genitourinary: Bladder wall thickness is normal. Miscellaneous: No inguinal hernias or adenopathy. Bones: No suspicious bony lesions. No vertebral body compression fractures. IMPRESSION: Stable CT of the abdomen and pelvis with no evidence of metastatic disease. Dictated by: Brandan Aguilar M.D. on 01/10/2020 at 13:40 Approved by: Brandan Aguilar M.D. on 01/10/2020 at 13:49
== END ==
PROVIDERS: PCP Family Medicine; Referring Provider Family Medicine; Visit Provider Surgery
DX: C18.9 Malignant neoplasm of colon, unspecified (principal); K76.89 Other specified diseases of liver; Z90.49 Acquired absence of other specified parts of digestive tract
CPT/HCPCS: 74177; Q9967

== ENCOUNTER → 2020-02-24 14:06 | Outpatient (CLI) | payer MEDICARE, OTHER, SELFPAY ==
[2019-10-01 14:30] VITALS: BMI 20.2
[2020-02-24 15:45] LABS: Prostate Specific Antigen 0.214 ng/mL (0.10-4.00)
== END ==
PROVIDERS: PCP Family Medicine; Referring Provider Specialist; Visit Provider Specialist
DX: C61 Malignant neoplasm of prostate (principal)
CPT/HCPCS: 36415; 84153

== ENCOUNTER → 2020-04-22 09:41 | Outpatient (CLI) | payer MEDICARE, OTHER, SELFPAY ==
[2020-03-03 14:00] VITALS: BMI 20.2
[2020-04-22] MEDS: COVID-19 VACC #1, MRNA(MOD) 100 MCG/0.5 ML VIAL IM (09:51)
== END ==
PROVIDERS: PCP Family Medicine; Visit Provider Internal Medicine
DX: Z23 Encounter for immunization (principal)
CPT/HCPCS: 0011A; 91301

== ENCOUNTER → 2020-05-11 11:49 | Outpatient (CLI) | payer MEDICARE, OTHER, SELFPAY ==
[2020-03-03 14:00] VITALS: BMI 20.2
[2020-05-11 12:31] LABS: COVID19 -Nasal RAPID Negative (Negative)
== END ==
PROVIDERS: PCP Family Medicine; Visit Provider Surgery
DX: Z01.812 Encounter for preprocedural laboratory examination (principal); Z20.822 Contact with and (suspected) exposure to COVID-19
CPT/HCPCS: 87635; C9803

== ENCOUNTER 2020-05-12 11:46 | Day surgery (SDC) | payer MEDICARE, OTHER, SELFPAY ==
[2020-03-03 14:00] VITALS: BMI 20.2
[2020-05-12] VITALS (7 sets, daily range): BP systolic 131–193; BP diastolic 74–93; PULSE 73–83; RESP 9–16; TEMP 36.4–36.9; O2SAT 97–100; BMI 22.9
--- NOTE | 2020-05-12 | PATH_ITS ---
[facility] Accession Number: [id number] . 01 Material submitted: . PART A: duodenum - DUODENUM BIOPSY PART B: gastrointestinal site - STOMACH BIOPSY PART C: esophagus - ESOPHAGUS BIOPSY PART D: colon - COLON ANASTOMOSIS BIOPSY PART E: colon - 40 CM COLON POLYP . 01 Clinical history: . SDC . 02 Diagnosis: A. Duodenum, Biopsy: Duodenal mucosa with no diagnostic abnormality. Negative for active inflammation, features of sprue, dysplasia, or malignancy. . B. Stomach, Biopsy: Body-type mucosa with no diagnostic abnormality. Negative for Helicobacter by immunohistochemistry. Negative for intestinal metaplasia. Negative for dysplasia and malignancy. . C. Esophagus, Biopsy: Squamocolumnar junctional mucosa with specialized intestinal metaplasia, consistent with Ambrocio's esophagus. Negative for dysplasia and malignancy. . D. Colon, Anastomosis, Biopsy: Mildly active enteritis. Negative for granulomas, dysplasia and malignancy. . E. Colon, Polyp 40 cm, Biopsy: Inflammatory polyp. Negative for dysplasia and malignancy. [facility] 05/15/2020 1506 Local . 02 Electronically signed: . Rema Meléndez MD, Pathologist NPI- [id number] . 01 Gross description: . Part A: DUODENUM BIOPSY: Received in formalin are 2 fragment(s) of galvan, soft tissue measuring 0.1 x 0.1 x 0.1 cm to 0.2 x 0.2 x 0.2 cm submitted entirely in 1 cassette(s) Part B: STOMACH BIOPSY: Received in formalin are 3 fragment(s) of galvan, soft tissue measuring 0.1 x 0.1 x 0.1 cm to 0.4 x 0.2 x 0.2 cm submitted entirely in 1 cassette(s) Part C: ESOPHAGUS BIOPSY: Received in formalin are 3 fragment(s) of galvan, soft tissue measuring 0.1 x 0.1 x 0.1 cm to 0.2 x 0.2 x 0.2 cm submitted entirely in 1 cassette(s) Part D: COLON ANASTOMOSIS BIOPSY: Received in formalin are 2 fragment(s) of galvan, soft tissue measuring 0.2 x 0.2 x 0.2 cm to 0.3 x 0.2 x 0.2 cm submitted entirely in 1 cassette(s) Part E: 40 CM COLON POLYP: Received in formalin is 1 fragment(s) of galvan, soft tissue measuring 0.2 x 0.2 x 0.2 cm submitted entirely in 1 cassette(s) /EDITH 05/13/2020 0042 Local . 02 Microscopic: . B. An immunohistochemical stain was performed to evaluate for Helicobacter organisms and is negative. The control stain showed appropriate reactivity. . * This test was developed and its performance characteristics determined by [employer]. It has not been cleared or approved by the U.S. Food and Drug Administration. The FDA has determined that such clearance or approval is not necessary. This test is used for clinical purposes. It should not be regarded as investigational or for research. . 02 Pathologist provided ICD-10: K22.70, K63.5 . 02 CPT . 846246, 993603, 232640, 037743, 446807, [id number] Performed at: 01 [facility] [address] [place] [address], [place], [place] [id number] MD Wilner Magaña MD Phone: [phone] Performed at: 02 [facility] [address] [place], [place] [id number] MD Rema Meléndez MD Phone: [phone]
[2020-05-12] MEDS: SODIUM CHLORIDE 0.9% 1,000 ML 200 ML IV (12:20)
--- NOTE | 2020-05-12 12:58 | PM.HP.1 ---
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 He has not needed any chemotherapy, but he has had surveillance CT scans and CEA levels. His last CEA levels have been 2.7-4, most recently 3.1. His CT scan in June revealed no signs of recurrent or metastatic disease. He is also in the process of treatment for prostate cancer. He denies any GI distress. He denies any nausea, vomiting, constipation, diarrhea, heartburn. He is still taking Prilosec as was recommended after his EGD 7 months ago, but not every day. ROS: As per HPI. Thirteen system review is otherwise negative other than as mentioned below and in HPI. PE: GENERAL: Well groomed and cooperative. Appears stated age. Answers questions promptly and appropriately. Vital signs noted. HENT: Normocephalic, atraumatic. Hearing intact. EYES: Conjunctiva pink, sclera white, no periorbital swelling. CARDIOVASCULAR: Regular rate. No pedal edema. RESPIRATORY: Non-tachypneic, breathing comfortably on room air. GASTROINTESTINAL: Abdomen soft and non-distended; well-healed abdominal incision, without hernia or tenderness, no tenderness in all 4 quadrants GENITALURINARY: No flank tenderness. MUSCULOSKELETAL: Equal tone and mass bilaterally. SKIN: Warm, dry, soft, appropriate color for ethnicity. No other lesions, rashes, or wounds. NEURO: Alert and Oriented X 3. No gross sensory deficits, or cognitive issues. PSYCH: Appropriate affect and mood. Patient History Medical History Anemia Constipation Elevated cholesterol Family history of malignant neoplasm of prostate Family history of prostate cancer Family history of prostate cancer Family history of prostate cancer Family history of prostate cancer Family history of prostate cancer Fecal occult blood test positive Gastric wall thickening 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 Malignant neoplasm of prostate Mass of hepatic flexure of colon Prostate cancer Prostate cancer Stress at home Surgical History History of colonoscopy History of esophagogastroduodenoscopy (EGD) History of tympanoplasty Hx of bilateral cataract extraction Hx of tonsillectomy Family & Social History Family History Father Heart disease Brother Cancer Social History: household members none Tobacco & Substance use: Smoking Status Never smoker alcohol intake current alcohol intake frequency holiday/special occasion Substance Use Type does not use Meds Home Medications and Allergies Home Medications Medication Instructions Recorded Confirmed Type mecobalamin (vitamin B12) 1,000 2,500 mcg SL DAILY 03/01/19 05/12/20 History mcg disintegrating tablet,sublingual multivitamin 1 cap PO DAILY 03/01/19 05/12/20 History omeprazole 20 mg PO DAILY 07/23/19 05/12/20 History Vitamin D3 5,000 units PO DAILY 05/12/20 05/12/20 History vit A,C,G-P7-mvzj-reh-tkt-mbow 1 tab PO DAILY 05/12/20 05/12/20 History [Eye-Franny Extra + Lutein] Allergies Allergy/AdvReac Type Severity Reaction Status Date / Time ciprofloxacin AdvReac Intermediate Agitated Verified 03/03/20 13:32 Exam Vital Signs (past 8 hours): - 05/12/20 12:29 Temperature 97.6 F Pulse Rate 74 Respiratory Rate 16 Blood Pressure 193/93 H Pulse Oximetry 100 Oxygen Delivery Method Room Air Oxygen Flow Rate 0 Assessment & Plan Assessment and plan (1) Colon cancer: Status: Acute (2) 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 The patient desires to proceed with the colonoscopy procedure. COVID-19 COVID-19 status: Negative Result date/Date tested (Pos, Neg/Pending): 05/11/20 Time Spent With Patient Time with patient: 15-24 minutes Quality VTE Deep Vein Thrombosis/Pulmonary Embolism Present on Admission: No
[2020-05-12] MEDS: fentaNYL 250 MCG/5 ML INJ IV (12:59)
[2020-05-12] MEDS: LIDOCAINE 4% SOLN 50 ML 20 ML TOP (12:59)
--- NOTE | 2020-05-12 13:11 | PM.OP.ENDO ---
Operative Date/Time/Diagnoses Date of procedure: 05/12/20 Time of procedure: 13:11 Pre-op diagnosis: History of Ambrocio's esophagus, history of hepatic flexure adenocarcinoma Procedure & Clinicians Study performed: Colonoscopy Biopsies of coloenteric anastomosis, using standard forceps Polypectomy at 40 cm using Jumbo forceps Esophagogastroduodenoscopy Biopsies of duodenum, stomach, distal esophagus Procedural sedation performed by the endoscopist Same procedure as scheduled: Yes Indications: History of Ambrocio's esophagus, due for surveillance. History of adenocarcinoma of the colon, 1 year out from colon resection. Surgeon: Grace Campbell Procedure Notes SCOAP/Timeout: Performed Procedure in detail: The patient was brought to the room and placed in left lateral decubitus position with all bony prominences padded. A bite block was positioned in the patient's mouth to protect the lips, teeth, and tongue for the procedure. A time-out was performed and then the patient was given procedural sedation starting with 4 mg of Versed and 100 mcg of fentanyl. Vitals were monitored throughout the procedure and remained stable. Once adequately sedated, the procedure was begun. The lubricated gastroscope was passed through the bite block and across the tongue and into the esophagus without incident. A tubular view of the esophagus was maintained as the scope was advanced through the esophagus and into the stomach. The scope was advanced through the stomach and to the pylorus. The scope was gently popped through the pylorus and into the duodenal bulb. The scope was flexed and advanced into the second and third portions of the duodenum. The duodenum and duodenal bulb revealed some mild inflammation. Biopsies were taken. The scope was withdrawn into the stomach. The stomach revealed some mild inflammation/gastritis. The scope was retroflexed and the gastric cardia was examined. The hiatus appeared fairly normal. The scope was then straightened, and withdrawn into the esophagus. The Z-line was broken, and revealed long tongues of salmon-colored mucosa reaching up into the esophagus 3-4 cm in length, consistent with Ambrocio's esophagus. Biopsies were taken. The scope was then withdrawn through the esophagus with a tubular view. The scope was then withdrawn from the patient and attention was turned to the colonoscopy portion of the procedure. An additional 2 mg of Versed were given prior to the start of the colonoscopy. A rectal exam was performed revealing no abnormalities. The colonoscope was then introduced to the rectum and advanced to the coloenteric anastomosis in the usual fashion. The anastomosis was identified, by the junction of the colon with a small-bowel. Biopsies were taken of the colon at this point. No appearance of recurrent cancer was seen. The anastomosis was widely patent. The scope was then retracted while rotating side to side and examining each mucosal fold. A small polyp was found at 40 cm, and removed with Jumbo forceps. At the conclusion of the procedure retroflexion was performed and low-grade proctitis was seen, consistent with pelvic radiation. Small internal hemorrhoids were seen, without stigmata of bleeding. The scope was then withdrawn from the rectum the procedure was concluded. The patient tolerated the procedure well and was transferred to the PACU in stable condition. Scope withdrawal time: 9 Sedation minutes: 32 Findings: Ambrocio's esophagus and polyp (Single small colonic polyp) Specimen(s): other (Biopsies of duodenum, stomach, distal esophagus, coloenteric anastomosis, colon polyp) Complications: none Impression: Low-grade inflammation in the stomach and duodenum, and findings in the esophagus consistent with Ambrocio's esophagus. Well healed and widely patent coloenteric anastomosis. Small polyp found in the colon and removed. Post-procedure Recommendations: Continue medication(s) (Continue omeprazole) and Other recommendation (Recommendations will depend on biopsy results.) Follow up: as needed Disposition: PACU
[2020-05-12] MEDS: MIDAZOLAM 5 MG/5 ML VIAL IV (13:14)
== END 2020-05-12 14:31 | disposition home or self-care (01) ==
PROVIDERS: PCP Family Medicine; Referring Provider Surgery; Visit Provider Surgery
PROC: 0DJ08ZZ Inspection of Upper Intestinal Tract, Via Natural or Artificial Opening Endoscopic (ICD-10-PCS; CPT 43235; principal; 2020-05-12 13:00)
PROC: 0DJD8ZZ Inspection of Lower Intestinal Tract, Via Natural or Artificial Opening Endoscopic (ICD-10-PCS; CPT 45378; 2020-05-12 13:00)
DX: Z12.11 Encounter for screening for malignant neoplasm of colon (principal); Z85.038 Personal history of other malignant neoplasm of large intestine; C61 Malignant neoplasm of prostate; Z90.49 Acquired absence of other specified parts of digestive tract; K64.8 Other hemorrhoids; K22.70 Barrett's esophagus without dysplasia; K52.9 Noninfective gastroenteritis and colitis, unspecified
CPT/HCPCS: 45380; 43239; 99152; 99153; J2250; J3010

== ENCOUNTER → 2020-05-20 13:54 | Outpatient (CLI) | payer MEDICARE, OTHER, SELFPAY ==
[2020-03-03 14:00] VITALS: BMI 20.2
[2020-05-20] MEDS: COVID-19 VACC #2, MRNA(MOD) 100 MCG/0.5 ML VIAL IM (14:00)
== END ==
PROVIDERS: PCP Family Medicine; Visit Provider Internal Medicine
DX: Z23 Encounter for immunization (principal)
CPT/HCPCS: 0012A; 91301

== ENCOUNTER → 2020-05-25 14:54 | Outpatient (CLI) | payer MEDICARE, OTHER, SELFPAY ==
[2020-03-03 14:00] VITALS: BMI 20.2
[2020-05-25 16:26] LABS: Carcinoembryonic Antigen 4.6 ng/mL (0.1-3.0)
[2020-05-25 16:31] LABS: Prostate Specific Antigen < 0.064 ng/mL (0.10-4.00)
== END ==
PROVIDERS: Surgery; PCP Family Medicine; Referring Provider Specialist; Visit Provider Specialist
DX: R97.20 Elevated prostate specific antigen [PSA] (principal); C18.9 Malignant neoplasm of colon, unspecified
CPT/HCPCS: 36415; 82378; 84153

== ENCOUNTER → 2020-08-07 14:34 | Outpatient (CLI) | payer MEDICARE, OTHER, SELFPAY ==
[2020-06-03 14:20] VITALS: BMI 20.2
--- NOTE | 2020-08-07 14:47 | DI.RAD.S_ITS ---
PROCEDURE: XR LUMBAR SPINE 2-3V INDICATIONS: R/O Severe Spndylosis and Spinal Stenosis TECHNIQUE: 2 views of the lumbar spine were acquired. COMPARISON: None. FINDINGS: Bones: 5 ufy-gjz-jyaelph vertebrae are present. There is normal bony alignment. No vertebral body compression fractures. No suspicious bony lesions. Mild degenerative disc disease is present from T12 through L3-L4. Moderate degenerative disc height reduction with slight anterolisthesis is present at L4-5 and moderate such degeneration without subluxation is present at L5-S1. Facet osteoarthritis becomes progressively more prominent from L3 through S1, and is pronounced at L5-S1 to the degree that significant spinal and foraminal stenosis at that level appears present. Moderate spinal stenosis at L4-L5 likely is also present. Soft tissues: Overlying bowel gas pattern is normal. No suspicious soft tissue calcifications. IMPRESSION: No trauma found. 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 Slight anterolisthesis grade 1 is noted of L4 on L5. Dictated by: Jase Pan M.D. on 08/07/2020 at 15:27 Approved by: Jase Pan M.D. on 08/07/2020 at 15:29
--- NOTE | 2020-08-07 14:47 | DI.RAD.S_ITS ---
PROCEDURE: XR CERVICAL SPINE 2V OR 3V INDICATIONS: R/O Severe Spndylosis and Spinal Stenosis TECHNIQUE: 3 view(s) of the cervical spine were acquired. COMPARISON: None. FINDINGS: Bones: No fractures or dislocations to the T1 level. The lateral masses of C1 appear intact on the odontoid view. No suspicious bony lesions. Mild to moderate degenerative disc disease is present along the cervical spine, without fracture or subluxation. This is most prominent at C5-6 and C6-7. Soft tissues: No prevertebral soft tissue swelling. IMPRESSION: Zpnv-hc-cjtftpki degenerative disc disease, best seen at the middle 3rd of the cervical spine but without evidence of prior trauma or current subluxation. Spinal and foraminal stenosis at C5-6 and C6-7 is suspected. Dictated by: Jase Pan M.D. on 08/07/2020 at 15:26 Approved by: Jase Pan M.D. on 08/07/2020 at 15:27
== END ==
PROVIDERS: PCP Family Medicine; Referring Provider Psychiatry & Neurology Neurology; Visit Provider Psychiatry & Neurology Neurology
DX: M50.322 Other cervical disc degeneration at C5-C6 level (principal); M51.37 Other intervertebral disc degeneration, lumbosacral region; M51.36 Other intervertebral disc degeneration, lumbar region; M47.816 Spondylosis without myelopathy or radiculopathy, lumbar region; M47.817 Spondylosis without myelopathy or radiculopathy, lumbosacral region; R27.0 Ataxia, unspecified; R20.0 Anesthesia of skin
CPT/HCPCS: 72040; 72100

== ENCOUNTER → 2020-08-13 15:40 | Outpatient (CLI) | payer MEDICARE, OTHER, SELFPAY ==
[2020-06-03 14:20] VITALS: BMI 20.2
[2020-08-13 18:49] LABS: Prostate Specific Antigen < 0.064 ng/mL (0.10-4.00)
== END ==
PROVIDERS: PCP Family Medicine; Referring Provider Specialist; Visit Provider Specialist
DX: C61 Malignant neoplasm of prostate (principal); R97.20 Elevated prostate specific antigen [PSA]
CPT/HCPCS: 36415; 84153

== ENCOUNTER → 2020-11-10 15:17 | Outpatient (CLI) | payer MEDICARE, OTHER, SELFPAY ==
[2020-09-03 14:01] VITALS: BMI 20.2
[2020-11-10 16:19] LABS: Hemoglobin A1C% w Est Avg Glu 5.7 % (4.0-6.0)
[2020-11-10 17:09] LABS: Free T4, Direct Thyroxine 1.11 ng/dL (0.78-2.19)
[2020-11-10 17:23] LABS: Thyroid Stimulating Hormone 2.31 uIU/mL (0.47-4.68)
[2020-11-10 17:58] LABS: Folate > 20.0 ng/mL (2.76-20.0); Vitamin B12 683 pg/mL (239-931)
[2020-11-11 15:08] LABS: Albumin 3.6 g/dL (2.9-4.4); Alpha-1-Globulin 0.2 g/dL (0.0-0.4); Alpha-2-Globulin 0.6 g/dL (0.4-1.0); Gamma Globulin 0.8 g/dL (0.4-1.8); Globulin Total 2.6 g/dL (2.2-3.9); Protein, Total 6.2 g/dL (6.0-8.5)
[2020-11-12 13:12] LABS: Alpha-1 Globulin, Ur 6.8 % (.); Beta Globulin, Ur 37.5 % (.); Gamma Globulin, Ur 14.7 % (.); M-Spike % Not Observed % (Not Observed); Urine Total Protein 12.8 mg/dL (Not Estab.)
== END ==
PROVIDERS: PCP Family Medicine; Referring Provider Psychiatry & Neurology Neurology; Visit Provider Psychiatry & Neurology Neurology
DX: G60.3 Idiopathic progressive neuropathy (principal); G62.9 Polyneuropathy, unspecified
CPT/HCPCS: 36415; 82595; 82607; 82746; 83036; 83516; 84155; 84156; 84165; 84166; 84439; 84443; 86255

== ENCOUNTER → 2020-11-25 14:28 | Outpatient (CLI) | payer MEDICARE, OTHER, SELFPAY ==
[2020-09-03 14:01] VITALS: BMI 20.2
[2020-11-25 18:17] LABS: Prostate Specific Antigen < 0.064 ng/mL (0.10-4.00)
== END ==
PROVIDERS: PCP Family Medicine; Referring Provider Specialist; Visit Provider Specialist
DX: C61 Malignant neoplasm of prostate (principal)
CPT/HCPCS: 36415; 84153

== ENCOUNTER → 2021-01-13 13:32 | Outpatient (CLI) | payer MEDICARE, OTHER, SELFPAY ==
[2020-12-02 14:01] VITALS: BMI 20.2
[2021-01-13 14:55] LABS: Prostate Specific Antigen < 0.064 ng/mL (0.10-4.00)
== END ==
PROVIDERS: PCP Family Medicine; Referring Provider Radiology Radiation Oncology; Visit Provider Radiology Radiation Oncology
DX: Z85.46 Personal history of malignant neoplasm of prostate (principal)
CPT/HCPCS: 36415; 84153

== ENCOUNTER → 2021-03-24 14:17 | Outpatient (CLI) | payer MEDICARE, OTHER, SELFPAY ==
[2020-12-02 14:01] VITALS: BMI 20.2
[2021-03-24 17:49] LABS: Prostate Specific Antigen < 0.064 ng/mL (0.10-4.00)
== END ==
PROVIDERS: PCP Family Medicine; Referring Provider Specialist; Visit Provider Specialist
DX: R97.20 Elevated prostate specific antigen [PSA] (principal)
CPT/HCPCS: 36415; 84153

== ENCOUNTER → 2021-09-22 14:14 | Outpatient (CLI) | payer MEDICARE, OTHER, SELFPAY ==
[2021-03-30 14:31] VITALS: BMI 20.2
[2021-09-22 17:34] LABS: Prostate Specific Antigen 0.226 ng/mL (0.10-4.00)
== END ==
PROVIDERS: PCP Family Medicine; Referring Provider Specialist; Visit Provider Specialist
DX: R97.20 Elevated prostate specific antigen [PSA] (principal)
CPT/HCPCS: 36415; 84153

== ENCOUNTER → 2021-10-22 12:56 | Outpatient (CLI) | payer MEDICARE, OTHER, SELFPAY ==
[2021-03-30 14:31] VITALS: BMI 20.2
--- NOTE | 2021-10-22 | DI.CT.S_ITS ---
PROCEDURE: CT SINUS SCREEN WO CON INDICATIONS: Chronic pansinusitis TECHNIQUE: Noncontrast 3.0 mm axial images acquired from the frontal sinuses to the mid-sella, with coronal and sagittal reformats. For radiation dose reduction, the following was used: automated exposure control, adjustment of mA and/or kV according to patient size. COMPARISON: None. FINDINGS: Image quality: Excellent. Maxillary Sinuses: No bony remodeling or destruction. There is moderate mucosal thickening within the inferior maxillary sinuses. Ethmoid Air Cells: No bony remodeling or destruction. Sinuses are clear. Sphenoid Sinuses: No bony remodeling or destruction. Sinuses are clear. Frontal Sinuses: No bony remodeling or destruction. Sinuses are clear. Ostiomeatal Complexes: Ostiomeatal complexes are patent, yet they are constitutionally narrowed, with bilateral Peyton cells, right worse than left. Miscellaneous: Visualized intra-orbital contents are normal. No nic bullosa or paradoxical turbinate curvature. There is minimal rightward nasal septal deviation. IMPRESSION: Focal maxillary sinus mucosal thickening. Narrowed ostiomeatal complexes, with bilateral Peyton cells. Dictated by: Rajendra Rodriguez M.D. on 10/22/2021 at 13:44 Approved by: Rajendra Rodriguez M.D. on 10/22/2021 at 13:46
== END ==
PROVIDERS: PCP Family Medicine; Referring Provider Otolaryngology; Visit Provider Otolaryngology
DX: J32.4 Chronic pansinusitis (principal); R51.9 Headache, unspecified
CPT/HCPCS: 70486

== ENCOUNTER → 2021-12-22 16:00 | Outpatient (CLI) | payer MEDICARE, OTHER, SELFPAY ==
[2021-03-30 14:31] VITALS: BMI 20.2
[2021-12-22 17:46] LABS: Prostate Specific Antigen 0.174 ng/mL (0.10-4.00)
== END ==
PROVIDERS: PCP Family Medicine; Referring Provider Specialist; Visit Provider Specialist
DX: C61 Malignant neoplasm of prostate (principal)
CPT/HCPCS: 36415; 84153

== ENCOUNTER → 2022-01-17 14:17 | Outpatient (CLI) | payer MEDICARE, OTHER, SELFPAY ==
[2021-03-30 14:31] VITALS: BMI 20.2
[2022-01-17 17:58] LABS: Prostate Specific Antigen 0.226 ng/mL (0.10-4.00)
== END ==
PROVIDERS: PCP Family Medicine; Referring Provider Radiology Radiation Oncology; Visit Provider Radiology Radiation Oncology
DX: C61 Malignant neoplasm of prostate (principal)
CPT/HCPCS: 36415; 84153

== ENCOUNTER → 2022-06-10 13:16 | Outpatient (CLI) | payer MEDICARE, OTHER, SELFPAY ==
[2021-03-30 14:31] VITALS: BMI 20.2
[2022-06-10 14:39] LABS: Prostate Specific Antigen 0.195 ng/mL (0.10-4.00)
== END ==
PROVIDERS: PCP Family Medicine; Referring Provider Specialist; Visit Provider Specialist
DX: R97.20 Elevated prostate specific antigen [PSA] (principal)
CPT/HCPCS: 36415; 84153

== ENCOUNTER → 2022-12-13 11:06 | Outpatient (CLI) | payer MEDICARE, OTHER, SELFPAY ==
[2021-03-30 14:31] VITALS: BMI 20.2
[2022-12-13 13:33] LABS: Prostate Specific Antigen 0.181 ng/mL (0.10-4.00)
== END ==
PROVIDERS: PCP Family Medicine; Referring Provider Specialist; Visit Provider Specialist
DX: R97.20 Elevated prostate specific antigen [PSA] (principal)
CPT/HCPCS: 36415; 84153

== ENCOUNTER → 2023-06-01 11:40 | Outpatient (CLI) | payer MEDICARE, OTHER, SELFPAY ==
[2021-03-30 14:31] VITALS: BMI 20.2
[2023-06-01 14:15] LABS: Prostate Specific Antigen 0.237 ng/mL (0.10-4.00)
== END ==
PROVIDERS: PCP Family Medicine; Referring Provider Specialist; Visit Provider Specialist
DX: C61 Malignant neoplasm of prostate (principal); Z85.46 Personal history of malignant neoplasm of prostate; R97.20 Elevated prostate specific antigen [PSA]
CPT/HCPCS: 36415; 84153

== ENCOUNTER → 2023-09-20 12:23 | Outpatient (CLI) | payer MEDICARE, OTHER, SELFPAY ==
[2021-03-30 14:31] VITALS: BMI 20.2
--- NOTE | 2023-09-20 12:25 | DI.US.S_ITS ---
PROCEDURE: US CAROTID DOPPLER BI INDICATIONS: Dizziness and giddiness TECHNIQUE: Color and pulse Doppler interrogation was performed of both carotid systems, with image documentation and velocity measurements. COMPARISON: None. FINDINGS: Stenosis calculations are based on SRU (Society of Radiologists in Ultrasound) criteria. Right side: Brachial blood pressure: 172/81 mm Hg. Common carotid artery peak systolic velocity: 82 cm/sec. Internal carotid artery peak systolic velocity: 61 cm/sec. Internal carotid artery end diastolic velocity: 17 cm/sec. External carotid artery peak systolic velocity: 57 cm/sec. ICA/CCA peak systolic ratio: 0.74. Welch scale imaging description: No significant plaque Percent internal carotid artery stenosis: None. Vertebral artery: Flow direction is retrograde. Left side: Brachial blood pressure: 182/87 mm Hg. Common carotid artery peak systolic velocity: 77 cm/sec. Internal carotid artery peak systolic velocity: 111 cm/sec. Internal carotid artery end diastolic velocity: 11 cm/sec. External carotid artery peak systolic velocity: 58 cm/sec. ICA/CCA peak systolic ratio: 1.5 Welch scale imaging description: Mild atherosclerotic plaque. Percent internal carotid artery stenosis: Less than 50%. Vertebral artery: Flow direction is antegrade. IMPRESSION: 1. Less than 50% stenosis of the left internal carotid artery and no significant right internal carotid artery stenosis. 2. Retrograde flow in the right vertebral artery, which could indicate steal physiology. Approved by: Chad Lynch M.D. on 09/20/2023 at 16:27
== END ==
LOC: US 12:24
PROVIDERS: PCP Family Medicine; Referring Provider Family Medicine; Visit Provider Family Medicine
DX: I65.22 Occlusion and stenosis of left carotid artery (principal); R42 Dizziness and giddiness; R09.89 Other specified symptoms and signs involving the circulatory and respiratory systems
CPT/HCPCS: 93880

== ENCOUNTER → 2023-11-30 09:31 | Outpatient (CLI) | payer MEDICARE, OTHER, SELFPAY ==
[2021-03-30 14:31] VITALS: BMI 20.2
[2023-11-30 11:31] LABS: Prostate Specific Antigen 0.156 ng/mL (0.10-4.00)
== END ==
PROVIDERS: PCP Family Medicine; Referring Provider Urology; Visit Provider Urology
DX: Z85.46 Personal history of malignant neoplasm of prostate (principal)
CPT/HCPCS: 36415; 84153

== ENCOUNTER → 2024-01-01 15:26 | Outpatient (CLI) | payer MEDICARE, OTHER, SELFPAY ==
[2021-03-30 14:31] VITALS: BMI 20.2
--- NOTE | 2024-01-01 15:27 | DI.MRI.S_ITS ---
PROCEDURE: MR HEAD/BRAIN WO/W CON INDICATIONS: DIZZINESS TECHNIQUE: Noncontrast axial T1 spin echo, axial T2 fast spin echo, sagittal and axial FLAIR, coronal T2 fast spin echo, axial gradient echo, axial diffusion and ADC through the brain. After the administration of contrast, axial and coronal and sagittal T1 spin echo with fat saturation through the brain. COMPARISON: [facility], , CAROTID DOPPLER BI, 09/20/2023, 13:04. FINDINGS: Image quality: This examination is limited by involuntary motion artifact. CSF spaces: Basal cisterns are patent. No extra-axial fluid collections. Ventricles are normal in size and shape. Brain: No midline shift. No intracranial bleeds or masses. No abnormal intracranial enhancement. There is cerebral volume loss for age. There is periventricular white matter chronic small vessel ischemic change. The brainstem appears normal. Diffusion-weighted images demonstrate no acute infarct. No chronic ischemic insults. Normal intravascular flow voids are present. In this patient with this given history, scrutiny is given to cerebellopontine angle cisterns and to the internal auditory canals. To the limits of this standard protocol study, no masses or abnormal enhancement can be seen within these regions. Skull and face: Calvarial marrow is normal in signal. Orbits appear normal. Note is made of bilateral lens replacements. Sinuses: Small mucous retention cysts can be seen involving the maxillary sinuses. Mild mucosal thickening can be seen within the paranasal sinuses, which is overall worst within the ethmoid air cells. There is a small to moderate amount of fluid within the right mastoid air cells. IMPRESSION: No imaging explanation is found for this patient's presenting symptoms. No masses or abnormal enhancement can be seen. No findings of acute or subacute infarction can be seen. No prior territorial infarct can be seen. Dictated by: Rajendra Rodriguez M.D. on 01/01/2024 at 16:04 Approved by: Rajendra Rodriguez M.D. on 01/01/2024 at 16:06
== END ==
PROVIDERS: PCP Family Medicine; Referring Provider Family Medicine; Visit Provider Family Medicine
DX: J34.1 Cyst and mucocele of nose and nasal sinus (principal); R42 Dizziness and giddiness
CPT/HCPCS: 70553; A9579

== ENCOUNTER 2024-02-06 07:39 | Day surgery (SDC) | payer MEDICARE, OTHER, SELFPAY ==
[2021-03-30 14:31] VITALS: BMI 20.2
--- NOTE | 2024-02-06 | PATH_ITS ---
[facility] Accession Number: [id number] No. of containers..01 Tissue . 01 Material submitted: . esophagus, E-G Junction - GE JUNCTION . 01 Diagnosis: GASTROESOPHAGEAL JUNCTION, BIOPSY: Squamocolumnar junctional mucosa with specialized intestinal metaplasia, consistent with Ambrocio's esophagus. Negative for dysplasia and malignancy. [facility] 02/07/2024 1522 Local . 01 Electronically signed: . Adams Lara MD, PhD, Pathologist NPI- [id number] . 01 Gross description: . GE JUNCTION: Received in formalin is 1 fragment(s) of galvan, soft tissue measuring 0.3 x 0.3 x 0.1 cm submitted entirely in 1 cassette(s) /EDITH 02/07/2024 0019 Local . 01 Pathologist provided ICD-10: K22.70 . 01 CPT . 384758 Specimen Comment: A courtesy copy of this report has been sent to [phone] Performed at: [address] [facility] [address], [place], [place] [id number] MD Wilner Magaña MD Phone: [phone]
[2024-02-06 08:11] VITALS: BP 197/85; PULSE 82; RESP 17; TEMP 36.9; O2SAT 98
--- NOTE | 2024-02-06 08:48 | SUR.OPER ---
EGD 048
--- NOTE | 2024-02-06 08:50 | PM.PREOP ---
Pre-operative Note Interval Note History & Physical reviewed/Exam performed by Physician: Yes Changes to H&P: No
[2024-02-06 09:23] VITALS: BP 71/48; PULSE 71; RESP 10; TEMP 36.6; O2SAT 94
[2024-02-06 09:25] VITALS: BP 71/48; PULSE 63; RESP 17; O2SAT 94
--- NOTE | 2024-02-06 09:26 | PM.OP.EC ---
Operative Date/Time/Diagnoses Date of procedure: 02/06/24 Time of procedure: 09:26 Pre-op diagnosis: History of colon cancer History of Barretts esophagus Procedure & Clinicians Study performed: Esophagogastroduodenoscopy and screening colonoscopy Same procedure as scheduled: Yes Indications: 83-year-old man history of Barretts esophagus without dysplasia and history of colon cancer status post right hemicolectomy 2020 [id number] Procedure Notes Procedure in detail: The history and physical was performed/updated and the patient is ASA class is 2. The procedure was discussed in detail with the patient. Potential risks complications including infection, bleeding, missed diagnosis, perforation, need for surgery, and were explained. Their questions were answered and informed consent was obtained. Patient placed in left lateral decubitus position. Time out was performed. Procedural sedation was administered by Anesthesia. A bite block was placed. the scope was inserted into the mouth and advanced through the esophagus and into the stomach. the pylorus was intubated and the duodenum was examined to the 2nd portion.. The scope was retroflexed within the stomach. The stomach was then decompressed and scope pulled back to the GE junction. Biopsies of the GE junction were performed with forceps. The scope was then removed Examination began with a thorough inspection of the perianal area there was no evidence of fissures, fistulae, external hemorrhoids or cutaneous malignancy. The colonoscopy scope was then placed into the anal canal and was advanced to the cecum, which was identified by the ileocecal valve, the appendiceal orifice and the confluence of the taenia. The scope was then slowly withdrawn examining colon thoroughly in all directions, irrigating it of any residual stool. FINDINGS -moderate size hiatal hernia -no obvious Barretts esophagus -normal ileocolonic anastomosis without signs of recurrent colon cancer The patient tolerated the procedure well. They will be discharged once criteria are met. The prep was of good/excellent quality. The withdrawl time was * minutes. Specimen(s): other (GE junction) Impression: Hiatal hernia No findings of recurrent colon cancer Post-procedure Recommendations: Colonscopy in 3 years (History of colon cancer) and Reflux diet Disposition: same day surgery
[2024-02-06 09:27] VITALS: BP 93/53; PULSE 69; RESP 12; TEMP 36.6; O2SAT 95
[2024-02-06 09:32] VITALS: BP 93/55; PULSE 59; RESP 14; O2SAT 96
[2024-02-06 09:37] VITALS: BP 109/68; PULSE 80; RESP 19; TEMP 36.8; O2SAT 98
== END 2024-02-06 10:00 | disposition home or self-care (01) ==
PROVIDERS: PCP Family Medicine; Referring Provider Surgery; Visit Provider Surgery
PROC: 0DJ08ZZ Inspection of Upper Intestinal Tract, Via Natural or Artificial Opening Endoscopic (ICD-10-PCS; CPT 43235; principal; 2024-02-06 08:45)
PROC: 0DJD8ZZ Inspection of Lower Intestinal Tract, Via Natural or Artificial Opening Endoscopic (ICD-10-PCS; CPT 45378; 2024-02-06 08:45)
DX: Z12.11 Encounter for screening for malignant neoplasm of colon (principal); Z85.038 Personal history of other malignant neoplasm of large intestine; Z87.19 Personal history of other diseases of the digestive system; Z90.49 Acquired absence of other specified parts of digestive tract; K44.9 Diaphragmatic hernia without obstruction or gangrene; K22.70 Barrett's esophagus without dysplasia
CPT/HCPCS: 43239; G0105; J2704

== ENCOUNTER → 2024-05-29 14:19 | Outpatient (CLI) | payer OTHER, SELFPAY ==
[2021-03-30 14:31] VITALS: BMI 20.2
[2024-05-29 16:42] LABS: Prostate Specific Antigen 0.107 ng/mL (0.10-4.00)
== END ==
PROVIDERS: PCP Family Medicine; Referring Provider Urology; Visit Provider Urology
DX: R97.20 Elevated prostate specific antigen [PSA] (principal); Z85.46 Personal history of malignant neoplasm of prostate
CPT/HCPCS: 36415; 84153

== ENCOUNTER → 2024-07-19 12:46 | Outpatient (CLI) | payer OTHER, SELFPAY ==
[2021-03-30 14:31] VITALS: BMI 20.2
--- NOTE | 2024-07-19 12:47 | DI.US.S_ITS ---
PROCEDURE: US CAROTID DOPPLER bilateral INDICATIONS: DIZZINESS TECHNIQUE: Color and pulse Doppler interrogation was performed of both carotid systems, with image documentation and velocity measurements. Fifty-two images and 1 cine series. COMPARISON: [facility], , US CAROTID DOPPLER , 09/20/2023, 13:04. FINDINGS: Stenosis calculations are based on SRU (Society of Radi[employer] in Ultrasound) criteria. Right side: Brachial blood pressure: 184/80 mm Hg. Common carotid artery peak systolic velocity: 73 cm/sec. Internal carotid artery peak systolic velocity: 59 cm/sec. Internal carotid artery end diastolic velocity: 11 cm/sec. External carotid artery peak systolic velocity: 73 cm/sec. ICA/CCA peak systolic ratio: 0.8 . Welch scale imaging description: Calcified plaque at the right carotid bifurcation into the proximal right internal carotid artery Percent internal carotid artery stenosis: Less than 50% . Vertebral artery: Flow direction is retrograde has the appearance of right subclavian steal phenomenon. Left side: Brachial blood pressure: 191/80 mm Hg. Common carotid artery peak systolic velocity: 86 cm/sec. Internal carotid artery peak systolic velocity: 239 cm/sec. Internal carotid artery end diastolic velocity: 115 cm/sec. External carotid artery peak systolic velocity: 14 cm/sec. ICA/CCA peak systolic ratio: 1.3 . Welch scale imaging description: Moderate to severe soft plaque at the left carotid bifurcation with range of 70% to near occlusion, measured at approximately 94% stenosis. Vertebral artery: Flow direction is antegrade. IMPRESSION: 1. In the right carotid artery, there is less than 50% stenosis based on peak systolic velocity criteria. 2. In the left carotid artery, there is increased soft plaque and new 70% to near occlusion approximately 94% stenosis based on peak systolic velocity criteria. 3. 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 4. Antegrade left vertebral artery flow. 5. Preliminary report to Dr. Layne at 2:05 p.m. Dictated by: Montana Pascual M.D. on 07/19/2024 at 14:26 Approved by: Montana Pascual M.D. on 07/19/2024 at 14:39
== END ==
PROVIDERS: PCP Family Medicine; Referring Provider Family Medicine; Visit Provider Family Medicine
DX: I65.23 Occlusion and stenosis of bilateral carotid arteries (principal); I73.9 Peripheral vascular disease, unspecified; R42 Dizziness and giddiness
CPT/HCPCS: 93880

== ENCOUNTER 2024-07-19 14:09 | Emergency (ER) | payer OTHER, SELFPAY ==
[2021-03-30 14:31] VITALS: BMI 20.2
[2024-07-19] VITALS (24 sets, daily range): BP systolic 168–226; BP diastolic 79–151; PULSE 62–73; RESP 9–23; TEMP 36.4; O2SAT 95–100; BMI 22.2
--- NOTE | 2024-07-19 14:27 | EKG_ITS ---
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
--- NOTE | 2024-07-19 14:37 | ED.GENADULT ---
HPI - General Adult <Mahendra Sharma MD - Last Filed: 07/24/24 08:47> General Chief complaint: Hypertension Stated complaint: abn carotid US Time Seen by Provider: 07/19/24 14:27 Source: patient Mode of arrival: Ambulatory History of Present Illness HPI narrative: Patient sent here from outpatient ultrasound for concerning ultrasound of the carotid vessels. Patient had outpatient study August 2023 that showed less than 50% stenosis on the left carotid but today is 70%. With potential plaque migration. Patient is sent here to the ER. I spoke with primary care Dr. Layne that ordered the carotid Doppler today. Patient has had dizziness recently. Patient here is awake alert oriented x4. Clear speech. Fast exam is negative. Related Data Home Medications Medication Instructions Recorded Confirmed mecobalamin (vitamin B12) 1,000 2,500 mcg sublingual DAILY 03/01/19 06/04/24 mcg disintegrating tablet,sublingual multivitamin 1 cap PO DAILY 03/01/19 06/04/24 Vitamin D3 5,000 units PO DAILY 05/12/20 06/04/24 vit A 7,160 unit-vit C 113 mg-vit tab PO 12/29/21 06/04/24 E 100 ococ-ljtc-roshad tablet levothyroxine 50 mcg tablet 50 mcg PO DAILY 01/18/24 06/04/24 Previous Rx's Medication Instructions Recorded aspirin 81 mg capsule 81 mg PO DAILY #30 caps 07/19/24 atorvastatin 40 mg tablet 40 mg PO BEDTIME #30 tabs 07/19/24 clopidogrel 75 mg tablet (Plavix) 75 mg PO DAILY #30 tabs 07/19/24 Allergies Allergy/AdvReac Type Severity Reaction Status Date / Time ciprofloxacin AdvReac Intermediate Agitated Verified 07/19/24 14:16 Review of Systems <Mahendra Sharma MD - Last Filed: 07/24/24 08:47> Review of Systems Narrative: GENERAL: Negative chills, fatigue, malaise, fever, sweats. HEENT: Negative sinus pain, ear pain, sore throat RESPIRATORY: Negative dyspnea, cough CARDIOVASCULAR: Negative chest pain, palpitations GASTROINTESTINAL: Negative vomiting, nausea, abdominal pain : Negative dysuria, frequency, hematuria MUSCULOSKELETAL: Negative muscle or bony pain SKIN: Negative rash, skin lesions NEUROLOGIC: Negative weakness, numbness, positive dizziness ROS Unobtainable: All systems reviewed & are unremarkable except as noted in HPI and below Patient History <Mahendra Sharma MD - Last Filed: 07/24/24 08:47> Medical History Family history of prostate cancer Family history of prostate cancer Family history of prostate cancer Family history of prostate cancer History of malignant neoplasm of prostate Prostate cancer Prostate cancer Malignant neoplasm of prostate Family history of malignant neoplasm of prostate 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 Elevated cholesterol Stress at home Gastric wall thickening Mass of hepatic flexure of colon Fecal occult blood test positive Anemia Constipation Surgical History Hx of bilateral cataract extraction History of colonoscopy History of esophagogastroduodenoscopy (EGD) History of tympanoplasty Hx of tonsillectomy Family History Father Heart disease Brother Cancer Social History marital status: household members: none lives independently: Yes occupational status: previously employed Smoking Status: Never smoker alcohol intake: current substance use type: does not use Smoking Status: Never smoker alcohol intake frequency: holidays/special occasions only Alcohol type: beer Exam <Mahendra Sharma MD - Last Filed: 07/24/24 08:47> Narrative Exam Narrative: GENERAL: in no distress, not toxic not dyspneic HEAD: Normocephalic. EYES: Pupils equal round ENT: Mucous membranes moist. NECK: Trachea midline. CARDIOVASCULAR: Regular rate and rhythm RESPIRATORY: Clear to auscultation. Breath sounds equal bilaterally. No wheezes, rales, or rhonchi. GASTROINTESTINAL: Abdomen soft, non-tender EXTREMITIES: No gross deformities. BACK: No flank tenderness. NEURO: AOx4. 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 Negative pronator drift. Fast exam is negative. SKIN: Warm and dry PSYCH: Not anxious, is cooperative Initial Vital Signs Initial Vital Signs: Vital Signs Temperature 97.6 F 07/19/24 14:16 Pulse Rate 69 07/19/24 14:16 Respiratory Rate 16 07/19/24 14:16 Blood Pressure 223/105 H 07/19/24 14:16 Pulse Oximetry 98 07/19/24 14:16 Oxygen Delivery Method Room Air 07/19/24 14:16 <Dion Dawson DO - Last Filed: 07/19/24 20:51> Initial Vital Signs Initial Vital Signs: Vital Signs Temperature 97.6 F 07/19/24 14:16 Pulse Rate 69 07/19/24 14:16 Respiratory Rate 16 07/19/24 14:16 Blood Pressure 223/105 H 07/19/24 14:16 Pulse Oximetry 98 07/19/24 14:16 Oxygen Delivery Method Room Air 07/19/24 14:16 Course <Mahendra Sharma MD - Last Filed: 07/24/24 08:47> Orders Ordered: Discontinued Medications Aspirin (Aspirin 81 Mg Chew Tab) 324 mg PO NOW ONE Stop: 07/19/24 14:28 Last Admin: 07/19/24 16:12 Dose: Not Given Documented By: BRENDAN Aspirin (Aspirin Ec 325 Mg Tablet) 325 mg PO NOW ONE Stop: 07/19/24 15:56 Last Admin: 07/19/24 17:02 Dose: Not Given Documented By: ROJAS Aspirin (Aspirin 81 Mg Chew Tab) 324 mg PO NOW ONE Stop: 07/19/24 16:07 Last Admin: 07/19/24 16:07 Dose: 324 mg Documented By: BRENDAN Aspirin (Aspirin Ec 81 Mg Tablet) 81 mg PO NOW ONE Stop: 07/19/24 20:48 Last Admin: 07/19/24 20:58 Dose: Not Given Documented By: BRENDAN Atorvastatin Calcium (Atorvastatin 20 Mg Tablet) 80 mg PO NOW ONE Stop: 07/19/24 15:55 Last Admin: 07/19/24 16:03 Dose: 80 mg Documented By: BRENDAN Clopidogrel Bisulfate (Clopidogrel 75 Mg Tablet) 75 mg PO NOW ONE Stop: 07/19/24 15:55 Last Admin: 07/19/24 16:05 Dose: 75 mg Documented By: BRENDAN Clopidogrel Bisulfate (Clopidogrel 75 Mg Tablet) 75 mg PO NOW ONE Stop: 07/19/24 20:48 Last Admin: 07/19/24 20:59 Dose: Not Given Documented By: BRENDAN Heparin Sodium (Porcine) (Heparin 5,000 Unit/Ml Vial) 5,500 unit 80 unit/kg (5500 unit) IV NOW ONE Stop: 07/19/24 15:35 Last Admin: 07/19/24 20:58 Dose: Not Given Documented By: BRENDAN Heparin Sodium/Dextrose (Heparin Drip) 25,000 unit in 500 mls @ 25.311 mls/hr IV CONT HERVE; Protocol Last Admin: 07/19/24 20:57 Dose: Not Given Documented By: BRENDAN Sodium Chloride (Normal Saline 0.9%) 500 mls @ 1,000 mls/hr IV BOLUS ONE Stop: 07/19/24 17:19 Last Infusion: 07/19/24 18:51 Dose: Infused Documented By: Admin: 07/19/24 17:04 Dose: 1,000 mls/hr Documented By: BRENDAN Lisinopril (Lisinopril 20 Mg Tablet) 20 mg PO NOW ONE Stop: 07/19/24 18:31 Last Admin: 07/19/24 18:58 Dose: 20 mg Documented By: BRENDAN Vital Signs Vital signs: Vital Signs - 8 hr 07/19/24 14:16 07/19/24 14:22 07/19/24 14:25 Temperature 97.6 F Pulse Rate 69 64 Respiratory Rate 16 Blood Pressure 223/105 H 206/108 H Pulse Oximetry 98 99 Oxygen Delivery Method Room Air 07/19/24 14:30 07/19/24 15:27 07/19/24 15:28 Temperature Pulse Rate 69 71 Respiratory Rate 23 Blood Pressure 194/94 H Pulse Oximetry 99 95 Oxygen Delivery Method Room Air 07/19/24 15:28 07/19/24 15:30 07/19/24 15:30 Temperature Pulse Rate 72 73 Respiratory Rate 11 L 13 Blood Pressure 168/90 H Pulse Oximetry 99 99 Oxygen Delivery Method 07/19/24 16:00 07/19/24 16:00 07/19/24 16:30 Temperature Pulse Rate 64 62 Respiratory Rate 9 L 16 Blood Pressure 172/82 H Pulse Oximetry 98 97 Oxygen Delivery Method Room Air 07/19/24 16:30 07/19/24 17:00 07/19/24 17:01 Temperature Pulse Rate 67 Respiratory Rate 12 Blood Pressure 176/79 H 199/93 H Pulse Oximetry 99 Oxygen Delivery Method Room Air 07/19/24 17:01 07/19/24 17:30 07/19/24 17:44 Temperature Pulse Rate 67 70 Respiratory Rate 12 12 Blood Pressure 226/97 H Pulse Oximetry 99 95 Oxygen Delivery Method Room Air Room Air 07/19/24 17:44 07/19/24 17:48 07/19/24 17:48 Temperature Pulse Rate 65 70 Respiratory Rate 16 14 Blood Pressure 216/106 H Pulse Oximetry 100 99 Oxygen Delivery Method 07/19/24 18:00 07/19/24 18:00 07/19/24 18:05 Temperature Pulse Rate 64 70 Respiratory Rate 12 20 Blood Pressure 180/151 H Pulse Oximetry 97 97 Oxygen Delivery Method 07/19/24 18:06 07/19/24 18:06 07/19/24 18:29 Temperature Pulse Rate 67 68 Respiratory Rate 18 16 Blood Pressure 221/93 H Pulse Oximetry 98 97 Oxygen Delivery Method 07/19/24 18:30 07/19/24 18:30 07/19/24 18:58 Temperature Pulse Rate 66 72 Respiratory Rate 13 Blood Pressure 200/118 H 200/118 H Pulse Oximetry 97 Oxygen Delivery Method 07/19/24 19:00 07/19/24 19:00 07/19/24 19:30 Temperature Pulse Rate 71 Respiratory Rate 14 Blood Pressure 196/93 H 191/90 H Pulse Oximetry 98 Oxygen Delivery Method 07/19/24 19:30 07/19/24 20:00 07/19/24 20:00 Temperature Pulse Rate 64 65 Respiratory Rate 16 16 Blood Pressure 210/91 H Pulse Oximetry 99 98 Oxygen Delivery Method <Dion Dawson, DO - Last Filed: 07/19/24 20:51> Orders Ordered: Discontinued Medications Aspirin (Aspirin 81 Mg Chew Tab) 324 mg PO NOW ONE Stop: 07/19/24 14:28 Last Admin: 07/19/24 16:12 Dose: Not Given Documented By: BRENDAN Aspirin (Aspirin Ec 325 Mg Tablet) 325 mg PO NOW ONE Stop: 07/19/24 15:56 Last Admin: 07/19/24 17:02 Dose: Not Given Documented By: ES Aspirin (Aspirin 81 Mg Chew Tab) 324 mg PO NOW ONE Stop: 07/19/24 16:07 Last Admin: 07/19/24 16:07 Dose: 324 mg Documented By: BRENDAN Aspirin (Aspirin Ec 81 Mg Tablet) 81 mg PO NOW ONE Stop: 07/19/24 20:48 Last Admin: 07/19/24 20:58 Dose: Not Given Documented By: AI Atorvastatin Calcium (Atorvastatin 20 Mg Tablet) 80 mg PO NOW ONE Stop: 07/19/24 15:55 Last Admin: 07/19/24 16:03 Dose: 80 mg Documented By: BRENDAN Clopidogrel Bisulfate (Clopidogrel 75 Mg Tablet) 75 mg PO NOW ONE Stop: 07/19/24 15:55 Last Admin: 07/19/24 16:05 Dose: 75 mg Documented By: BRENDAN Clopidogrel Bisulfate (Clopidogrel 75 Mg Tablet) 75 mg PO NOW ONE Stop: 07/19/24 20:48 Last Admin: 07/19/24 20:59 Dose: Not Given Documented By: BRENDAN Heparin Sodium (Porcine) (Heparin 5,000 Unit/Ml Vial) 5,500 unit 80 unit/kg (5500 unit) IV NOW ONE Stop: 07/19/24 15:35 Last Admin: 07/19/24 20:58 Dose: Not Given Documented By: BRENDAN Heparin Sodium/Dextrose (Heparin Drip) 25,000 unit in 500 mls @ 25.311 mls/hr IV CONT HERVE; Protocol Last Admin: 07/19/24 20:57 Dose: Not Given Documented By: BRENDAN Sodium Chloride (Normal Saline 0.9%) 500 mls @ 1,000 mls/hr IV BOLUS ONE Stop: 07/19/24 17:19 Last Infusion: 07/19/24 18:51 Dose: Infused Documented By: Admin: 07/19/24 17:04 Dose: 1,000 mls/hr Documented By: BRENDAN Lisinopril (Lisinopril 20 Mg Tablet) 20 mg PO NOW ONE Stop: 07/19/24 18:31 Last Admin: 07/19/24 18:58 Dose: 20 mg Documented By: BRENDAN Vital Signs Vital signs: Vital Signs - 8 hr 07/19/24 14:16 07/19/24 14:22 07/19/24 14:25 Temperature 97.6 F Pulse Rate 69 64 Respiratory Rate 16 Blood Pressure 223/105 H 206/108 H Pulse Oximetry 98 99 Oxygen Delivery Method Room Air 07/19/24 14:30 07/19/24 15:27 07/19/24 15:28 Temperature Pulse Rate 69 71 Respiratory Rate 23 Blood Pressure 194/94 H Pulse Oximetry 99 95 Oxygen Delivery Method Room Air 07/19/24 15:28 07/19/24 15:30 07/19/24 15:30 Temperature Pulse Rate 72 73 Respiratory Rate 11 L 13 Blood Pressure 168/90 H Pulse Oximetry 99 99 Oxygen Delivery Method 07/19/24 16:00 07/19/24 16:00 07/19/24 16:30 Temperature Pulse Rate 64 62 Respiratory Rate 9 L 16 Blood Pressure 172/82 H Pulse Oximetry 98 97 Oxygen Delivery Method Room Air 07/19/24 16:30 07/19/24 17:00 07/19/24 17:01 Temperature Pulse Rate 67 Respiratory Rate 12 Blood Pressure 176/79 H 199/93 H Pulse Oximetry 99 Oxygen Delivery Method Room Air 07/19/24 17:01 07/19/24 17:30 07/19/24 17:44 Temperature Pulse Rate 67 70 Respiratory Rate 12 12 Blood Pressure 226/97 H Pulse Oximetry 99 95 Oxygen Delivery Method Room Air Room Air 07/19/24 17:44 07/19/24 17:48 07/19/24 17:48 Temperature Pulse Rate 65 70 Respiratory Rate 16 14 Blood Pressure 216/106 H Pulse Oximetry 100 99 Oxygen Delivery Method 07/19/24 18:00 07/19/24 18:00 07/19/24 18:05 Temperature Pulse Rate 64 70 Respiratory Rate 12 20 Blood Pressure 180/151 H Pulse Oximetry 97 97 Oxygen Delivery Method 07/19/24 18:06 07/19/24 18:06 07/19/24 18:29 Temperature Pulse Rate 67 68 Respiratory Rate 18 16 Blood Pressure 221/93 H Pulse Oximetry 98 97 Oxygen Delivery Method 07/19/24 18:30 07/19/24 18:30 07/19/24 18:58 Temperature Pulse Rate 66 72 Respiratory Rate 13 Blood Pressure 200/118 H 200/118 H Pulse Oximetry 97 Oxygen Delivery Method 07/19/24 19:00 07/19/24 19:00 07/19/24 19:30 Temperature Pulse Rate 71 Respiratory Rate 14 Blood Pressure 196/93 H 191/90 H Pulse Oximetry 98 Oxygen Delivery Method 07/19/24 19:30 07/19/24 20:00 07/19/24 20:00 Temperature Pulse Rate 64 65 Respiratory Rate 16 16 Blood Pressure 210/91 H Pulse Oximetry 99 98 Oxygen Delivery Method Medical Decision Making <Mahendra Sharma MD - Last Filed: 07/24/24 08:47> Lab Data 07/19/24 14:40 07/19/24 14:40 Labs: Lab Results 07/19/24 Range/Units 14:40 WBC 5.0 (4.5-11.0) X10^3/uL RBC 4.33 L (4.5-5.9) X10^6/uL Hgb 14.2 (13.5-17.5) g/dL Hct 42.0 (41-53) % MCV 97.1 (80-100) fL MCH 32.9 (26-34) PG MCHC 33.9 (30-36) % RDW 13.8 (11.6-14.8) % Plt Count 158 (150-400) X10^3/uL Neut % (Auto) 68.5 (50-75) % Lymph % (Auto) 21.9 L (25-40) % [place] % (Auto) 7.4 (3-14) % Eos % (Auto) 1.8 L (2-4) % Baso % (Auto) 0.4 (0-2) % Neut # (Auto) 3400 (6746-5028) /uL Lymph # (Auto) 1100 (2890-3746) /uL [place] # (Auto) 400 (0-900) /uL Eos # (Auto) 100 (0-450) /uL Baso # (Auto) 0 (0-100) /uL PT 10.8 (9.4-12.5) SECONDS INR 1.0 (0.9-1.3) APTT 36 (25.1-36.5) SECONDS Sodium 139 (137-145) mmol/L Potassium 4.4 (3.4-5.1) mmol/L Chloride 104 (98-107) mmol/L Carbon Dioxide 27 (22-32) mmol/L BUN 31 H (9-20) mg/dL Creatinine 1.08 (0.66-1.25) mg/dL Estimated GFR > 60 (>60) mL/min BUN/Creatinine Ratio 28.7 H (6-22) Glucose 99 (70-99) mg/dL Calcium 9.3 (8.4-10.2) mg/dL Magnesium 2.1 (1.6-2.3) mg/dL Total Bilirubin 1.5 H (0.2-1.3) mg/dL AST 32 (17-59) IU/L ALT 22 (<50) IU/L Alkaline Phosphatase 71 (38-126) U/L Total Creatine Kinase Cancelled Troponin I Cancelled NT-Pro-B Natriuret Pep Cancelled Total Protein 7.1 (6.3-8.2) g/dL Albumin 4.4 (3.5-5.0) g/dL Globulin 2.7 (1.7-4.1) g/dL Albumin/Globulin Ratio 1.6 (1.0-2.8) Lipase Cancelled Imaging Data Carotid ultrasound: Radiologist's Impression: [address] [address] Ultrasound Report Signed Patient: Kevin Henriquez MR#: [id number] : 1940 Acct:[id number] Age/Sex: 83 / M Date of Service: 07/19/24 Loc: US Accession Number: [id number] Procedure: US carotid doppler BI Ordering Provider: Alanis Layne MD PROCEDURE: US CAROTID DOPPLER bilateral INDICATIONS: DIZZINESS TECHNIQUE: Color and pulse Doppler interrogation was performed of both carotid systems, with image documentation and velocity measurements. Fifty-two images and 1 cine series. COMPARISON: [facility], US, US CAROTID DOPPLER BI, 09/20/2023, 13:04. FINDINGS: Stenosis calculations are based on SRU (Society of Radiologists in Ultrasound) criteria. Right side: Brachial blood pressure: 184/80 mm Hg. Common carotid artery peak systolic velocity: 73 cm/sec. Internal carotid artery peak systolic velocity: 59 cm/sec. Internal carotid artery end diastolic velocity: 11 cm/sec. External carotid artery peak systolic velocity: 73 cm/sec. ICA/CCA peak systolic ratio: 0.8 . Welch scale imaging description: Calcified plaque at the right carotid bifurcation into the proximal right internal carotid artery Percent internal carotid artery stenosis: Less than 50% . Vertebral artery: Flow direction is retrograde has the appearance of right subclavian steal phenomenon. Left side: Brachial blood pressure: 191/80 mm Hg. Common carotid artery peak systolic velocity: 86 cm/sec. Internal carotid artery peak systolic velocity: 239 cm/sec. Internal carotid artery end diastolic velocity: 115 cm/sec. External carotid artery peak systolic velocity: 14 cm/sec. ICA/CCA peak systolic ratio: 1.3 . Welch scale imaging description: Moderate to severe soft plaque at the left carotid bifurcation with range of 70% to near occlusion, measured at approximately 94% stenosis. Vertebral artery: Flow direction is antegrade. IMPRESSION: 1. In the right carotid artery, there is less than 50% stenosis based on peak systolic velocity criteria. 2. In the left carotid artery, there is increased soft plaque and new 70% to near occlusion approximately 94% stenosis based on peak systolic velocity criteria. 3. 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 4. Antegrade left vertebral artery flow. 5. Preliminary report to Dr. Layne at 2:05 p.m. Dictated by: [place] Pascual M.D. on 07/19/2024 at 14:26 Approved by: [place] Pascual M.D. on 07/19/2024 at 14:39 MRI brain: Radiologist's Impression: [address] [address] Magnetic Resonance Report Signed Patient: Kevin Henriquez MR#: [id number] : 1940 Acct:[id number] Age/Sex: 83 / M Date of Service: 07/19/24 Loc: ED Accession Number: [id number] Procedure: MR stroke Ordering Provider: Mahendra Sharma MD PROCEDURE: MR STROKE Pre- and post-contrast brain MRI, non-contrast brain MR angiogram, pre- and postcontrast neck MR angiogram INDICATIONS: Dizziness TECHNIQUE: Brain: Noncontrast axial T1 spin echo, axial T2 fast spin echo, sagittal and axial FLAIR, coronal T2 fast spin echo, axial gradient echo, axial diffusion and ADC through the brain. After the administration of contrast, axial 3D VIBE of the cranial vasculature and brain. Brain MRA: Non-contrast 3-D time of flight MR angiogram, with multiple yuoawjj-mkhwblxcj-hkabiwcfaq (MIP) reformats performed. Neck MRA: Axial and sagittal TruFISP through the neck. Coronal dynamic MR angiogram during administration of contrast in the arterial and venous phases, with 3-dimenstional xmzvrrc-xltaetbhc-mzplnlstcj (MIP) reformats constructed from subtraction images. COMPARISON: [facility], MR, MR HEAD/BRAIN WO/W CON, 01/01/2024, 15:56. [facility], US, US CAROTID DOPPLER BI, 07/19/2024, 13:07. FINDINGS: Image quality: Excellent. BRAIN: CSF spaces: Ventricles are normal in size and shape. Basal cisterns are patent. No extra-axial fluid collections. Brain: No intracranial bleeds or mass effects. Welch-white matter interface is normal. Diffusion weighted images show no acute infarct. Brainstem appears normal. Normal intravascular flow voids are present. No abnormal intracranial enhancement. Note is made of age-appropriate brain parenchymal volume loss and chronic small vessel ischemic changes. Skull and face: Calvarial marrow signal is normal. Orbits appear normal. Note is made of bilateral lens replacements. Sinuses: Sinuses and mastoids are clear. BRAIN MR ANGIOGRAM: Anterior circulation: Intracranial internal carotid arteries are normal in size and enhancement. The flow within the paired anterior cerebral arteries is normal and symmetric. The flow within the middle cerebral arteries is normal and symmetric. The anterior communicating artery is seen. No stenoses, occlusions, or aneurysms. Posterior circulation: There is poor flow seen within the right V4 segment. The left V4 segment is within normal limits. There is a normal appearing basilar artery. The flow within the posterior cerebral arteries is normal and symmetric. No stenoses, occlusions, or aneurysms. NECK MR ANGIOGRAM: Carotids: Great vessels demonstrate a conventional anatomy as they arise from the aortic arch. There is believed to be at least 50% stenosis of the right proximal internal carotid artery. There is approximately 50% narrowing of the origin of the right common carotid artery. The left common carotid artery appears widely patent. The calibers and courses of both common carotid arteries are normal. At the left carotid bifurcation region, there is a significant stenosis, 70%. Posterior circulation: There is poor flow within the right vertebral artery. Normal flow is seen within the left vertebral artery. Miscellaneous: Subclavian arteries appear patent. Pre-contrast images through the neck show no soft tissue abnormalities. IMPRESSION: BRAIN MRI: No findings of acute or subacute infarction can be seen. Note is made of age-appropriate brain parenchymal volume loss and chronic small vessel ischemic changes. No masses or abnormal enhancement can be seen. BRAIN MR ANGIOGRAM: There is poor flow within the right V4 segment. The intracranial arteries are otherwise unremarkable. NECK MR ANGIOGRAM: 70% narrowing seen involving left carotid bifurcation region. There is 50% narrowing seen involving the origin of the right common carotid artery. There is approximately 50% narrowing seen involving the right proximal subclavian artery. There is poor flow within the right vertebral artery. 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 - If clinically appropriate, please consider a follow-up CT angiogram of the neck for further evaluation. Dictated by: Rajendra Rodriguez M.D. on 07/19/2024 at 14:28 Approved by: Rajendra Rodriguez M.D. on 07/19/2024 at 14:34 CTA - brain/neck: Radiologist's Impression: [address] [address] [address] Scan Report Signed Patient: Kevin Henriquez MR#: [id number] : 1940 Acct:[id number] Age/Sex: 83 / M Date of Service: 07/19/24 Loc: ED Accession Number: [id number] Procedure: CT angio head and neck Ordering Provider: Mahendra Sharma MD PROCEDURE: CT ANGIO HEAD AND NECK INDICATIONS: Dizziness TECHNIQUE: After the administration of intravenous contrast, 1 mm thick sections acquired from the aortic arch through the [place] of [place]. 3-dimensional rnjokxi-jzzcpheqm-buktcbmbgw (MIP) and/or volume rendering reformats were acquired of the central intracranial vasculature and neck separately. For radiation dose reduction, the following was used: automated exposure control, adjustment of mA and/or kV according to patient size. COMPARISON: None. FINDINGS: Image quality: Diagnostic. BRAIN: Please refer to same day MRI brain. HEAD CT ANGIOGRAPHY: Anterior circulation: Intracranial internal carotid arteries are normal in size and flow. The flow within the paired anterior cerebral arteries is normal and symmetric. The flow within the middle cerebral arteries is normal and symmetric. The anterior communicating artery is seen. No aneurysms are seen. Posterior circulation: Mildly decreased caliber of the right V4 vertebral artery.. Left vertebral artery is normal in caliber. The join to form a normal appearing basilar artery. Flow within the posterior cerebral arteries is normal and symmetric. No aneurysms are seen. NECK CT ANGIOGRAPHY: Carotid system: The great vessels demonstrate a conventional anatomy as they arise from the aortic arch. Significant calcifications at the origin of the right subclavian artery with likely high-grade stenosis, evaluation is mildly limited secondary to artifact The origins of the common carotid arteries appear patent. The common carotid arteries demonstrate normal caliber and courses. The bifurcation regions demonstrate atherosclerotic calcifications with mild, less than 50% stenosis on the right and moderate stenosis on the left, approximately 70 % stenosis. The internal carotid arteries otherwise demonstrate normal calibers and courses. Posterior circulation: Minimal to no opacification of the proximal and mid right vertebral artery. They join to form a normal appearing basilar artery. Soft tissues: Visualized neck soft tissues demonstrate no suspicious abnormalities. Bones: No suspicious bony lesions. Visualized cervical spine appears normally aligned. Multilevel degenerative changes of the spine. IMPRESSION: Mild narrowing of the right V4 vertebral artery. Otherwise, no significant intracranial arterial abnormality is seen. Again seen stenosis of the bilateral carotid bulbs, less than 50% on the right and approximately 70% on the left. Coarse calcifications at the origin of the right subclavian artery with likely high-grade stenosis. 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 Any quantitative measurements of stenosis were performed using NASCET criteria. Dictated by: Dallas Jordan M.D. on 07/19/2024 at 17:33 Approved by: Dallas Joradn M.D. on 07/19/2024 at 17:42 [facility] Narrative Medical decision making narrative: Patient sent here from outpatient ultrasound for concerning ultrasound of the carotid vessels. Patient had outpatient study August 2023 that showed less than 50% stenosis on the left carotid but today is 70%. With potential plaque migration. Patient is sent here to the ER. I spoke with primary care Dr. Layne that ordered the carotid Doppler today. Patient has had dizziness recently. Patient here is awake alert oriented x4. Clear speech. Fast exam is negative. After history and exam, MRI brain stroke protocol with angiogram, CBC CMP EKG, vascular consult with possible transfer [facility] Medical records reviewed: Carotid Doppler September 18, 2023 and MRI brain January 01, 2024 Differential considered: Includes but not limited to TIA stroke carotid stenosis Lab Test results independently reviewed as above. Pertinent findings: Independently reviewed EKG sinus bradycardia rate 59 Imaging studies independently reviewed: Consultations: 2:30 p.m.. I spoke with Dr. Layne, she was informed by radiology department for concerning find on the left carotid vessel today on the Doppler. Possible plaque that could migraine. Patient has been dizzy recently. She states that patient gets ?white coat syndrome ?and do not be surprised if his blood pressure is elevated. It is elevated and patient admits to the same. 3:52 p.m.. Spoke with [facility] tele stroke doctor karishma, she does not recommend heparin at this time. She recommends Plavix aspirin and atorvastatin. She recommends contacting vascular services for further management. 4:49 p.m.. Spoke with Angela Reyes vascular physician human resources assistant manager jennifer, his team has reviewed imaging and they want CT angiogram head and neck and then call them back with the results. 6:[address] Sharma: I spoke with [facility] vascular surgeon, Dr. Ferro he would like patient to follow up closely next week in their clinic. He agrees with there stroke team, keep patient on Plavix aspirin and atorvastatin Re-evaluations: 5:00 p.m.. No new complaints. Updated patient results and he does understand will likely need to be transferred possibly [facility] for vascular evaluation of his neck arteries. No neuro deficits at this time. Discussion: 6:[address] Sharma: Sign out to Dr. Dawson, awaiting call back from vascular services with [place] for disposition plan. Diagnosis: <Dion Dawson, DO - Last Filed: 07/19/24 20:51> Lab Data Labs: Lab Results 07/19/24 Range/Units 14:40 WBC 5.0 (4.5-11.0) X10^3/uL RBC 4.33 L (4.5-5.9) X10^6/uL Hgb 14.2 (13.5-17.5) g/dL Hct 42.0 (41-53) % MCV 97.1 (80-100) fL MCH 32.9 (26-34) PG MCHC 33.9 (30-36) % RDW 13.8 (11.6-14.8) % Plt Count 158 (150-400) X10^3/uL Neut % (Auto) 68.5 (50-75) % Lymph % (Auto) 21.9 L (25-40) % Webster % (Auto) 7.4 (3-14) % Eos % (Auto) 1.8 L (2-4) % Baso % (Auto) 0.4 (0-2) % Neut # (Auto) 3400 (7084-5395) /uL Lymph # (Auto) 1100 (6346-5269) /uL Webster # (Auto) 400 (0-900) /uL Eos # (Auto) 100 (0-450) /uL Baso # (Auto) 0 (0-100) /uL PT 10.8 (9.4-12.5) SECONDS INR 1.0 (0.9-1.3) APTT 36 (25.1-36.5) SECONDS Sodium 139 (137-145) mmol/L Potassium 4.4 (3.4-5.1) mmol/L Chloride 104 (98-107) mmol/L Carbon Dioxide 27 (22-32) mmol/L BUN 31 H (9-20) mg/dL Creatinine 1.08 (0.66-1.25) mg/dL Estimated GFR > 60 (>60) mL/min BUN/Creatinine Ratio 28.7 H (6-22) Glucose 99 (70-99) mg/dL Calcium 9.3 (8.4-10.2) mg/dL Magnesium 2.1 (1.6-2.3) mg/dL Total Bilirubin 1.5 H (0.2-1.3) mg/dL AST 32 (17-59) IU/L ALT 22 (<50) IU/L Alkaline Phosphatase 71 (38-126) U/L Total Creatine Kinase Cancelled Troponin I Cancelled NT-Pro-B Natriuret Pep Cancelled Total Protein 7.1 (6.3-8.2) g/dL Albumin 4.4 (3.5-5.0) g/dL Globulin 2.7 (1.7-4.1) g/dL Albumin/Globulin Ratio 1.6 (1.0-2.8) Lipase Cancelled [facility] Narrative Medical decision making narrative: Patient sent here from outpatient ultrasound for concerning ultrasound of the carotid vessels. Patient had outpatient study August 2023 that showed less than 50% stenosis on the left carotid but today is 70%. With potential plaque migration. Patient is sent here to the ER. I spoke with primary care Dr. Layne that ordered the carotid Doppler today. Patient has had dizziness recently. Patient here is awake alert oriented x4. Clear speech. Fast exam is negative. After history and exam, MRI brain stroke protocol with angiogram, CBC CMP EKG, vascular consult with possible transfer [facility] Medical records reviewed: Carotid Doppler September 18, 2023 and MRI brain January 01, 2024 Differential considered: Includes but not limited to TIA stroke carotid stenosis Lab Test results independently reviewed as above. Pertinent findings: Independently reviewed EKG sinus bradycardia rate 59 Imaging studies independently reviewed: Consultations: 2:30 p.m.. I spoke with Dr. Layne, she was informed by radiology department for concerning find on the left carotid vessel today on the Doppler. Possible plaque that could migraine. Patient has been dizzy recently. She states that patient gets ?white coat syndrome ?and do not be surprised if his blood pressure is elevated. It is elevated and patient admits to the same. 3:52 p.m.. Spoke with [facility] tele stroke doctor karishma, she does not recommend heparin at this time. She recommends Plavix aspirin and atorvastatin. She recommends contacting vascular services for further management. 4:49 p.m.. Spoke with [facility] vascular physician human resources assistant manager jennifer, his team has reviewed imaging and they want CT angiogram head and neck and then call them back with the results. 6:[address] Sharma: I spoke with [facility] vascular surgeon, Dr. Ferro he would like patient to follow up closely next week in their clinic. He agrees with there stroke team, keep patient on Plavix aspirin and atorvastatin Re-evaluations: 5:00 p.m.. No new complaints. Updated patient results and he does understand will likely need to be transferred possibly [facility] for vascular evaluation of his neck arteries. No neuro deficits at this time. Discussion: 6:[address] Sharma: Sign out to Dr. Dawson, awaiting call back from vascular services with [place] for disposition plan. Diagnosis: Patient is signed out to me at shift change pending final disposition by . I spoke with Dr. Montemayor vascular surgeon [facility] who recommended outpatient follow up and to start on aspirin Plavix and atorvastatin and the office will call him for an appointment next week. Pt was given asa and plavix here and to d/c home on asa, plavix and atorvastatin. Discharge Plan Departure Patient Disposition: Home Clinical Impression: Carotid artery stenosis Qualifiers: Laterality: unspecified laterality Qualified Code(s): I65.29 - Occlusion and stenosis of unspecified carotid artery Instructions: DI for Carotid Artery Stenosis Activity Restrictions/Additional Instructions: Return with new or worsening symptoms. Take your medicines as directed. Follow up with Dr. Montemayor vascular surgeon appointment. Prescriptions: New aspirin 81 mg capsule 81 mg PO DAILY Qty: 30 0RF clopidogrel [Plavix] 75 mg tablet 75 mg PO DAILY Qty: 30 0RF atorvastatin 40 mg tablet 40 mg PO BEDTIME Qty: 30 0RF No Action multivitamin Capsule 1 cap PO DAILY mecobalamin (vitamin B12) 1,000 mcg tablet,disintegrating 2,500 mcg SL DAILY levothyroxine 50 mcg tablet 50 mcg PO DAILY Vitamin D3 5,000 units PO DAILY vit A-vit C-vit P-rjnl-jkefdv 7,160-113-100 ihse-qg-yypi tablet PO Referrals: Alanis Layne MD [Primary Care Provider] - Stand Alone Forms: Patient Portal/API/Survey
[2024-07-19 14:48] LABS: Add Manual Diff / Slide Review NO; Basophils Absolute Auto 0 /uL (0-100); Basophils Percent Auto 0.4 % (0-2); Eosinophils Absolute Auto 100 /uL (0-450); Eosinophils Percent Auto 1.8 % (2-4); Hemoglobin 14.2 g/dL (13.5-17.5); Lymphocytes Absolute Auto 1100 /uL (1100-4500); Lymphocytes Percent Auto 21.9 % (25-40); Mean Corpuscular HGB Conc 33.9 % (30-36); Mean Corpuscular Hemoglobin 32.9 PG (26-34); Mean Corpuscular Volume 97.1 fL (80-100); Monocytes Absolute Auto 400 /uL (0-900); Monocytes Percent Auto 7.4 % (3-14); Neutrophils Absolute Auto 3400 /uL (1500-7000); Neutrophils Percent Auto 68.5 % (50-75); Platelet Count 158 X10^3/uL (150-400); Red Blood Cell Count 4.33 X10^6/uL (4.5-5.9); Red Cell Distribution Width 13.8 % (11.6-14.8)
[2024-07-19 14:52] LABS: Prothrombin Time 10.8 SECONDS (9.4-12.5)
[2024-07-19 14:55] LABS: PTT Partial Thromboplastin Tim 36 SECONDS (25.1-36.5)
[2024-07-19 15:04] LABS: Alanine Aminotransferase 22 IU/L (<50); Albumin 4.4 g/dL (3.5-5.0); Albumin Globulin Ratio 1.6 (1.0-2.8); Alkaline Phosphatase 71 U/L (38-126); Aspartate Aminotransferase 32 IU/L (17-59); BUN Creatinine Ratio 28.7 (6-22); Bilirubin Total 1.5 mg/dL (0.2-1.3); Blood Urea Nitrogen 31 mg/dL (9-20); Calcium 9.3 mg/dL (8.4-10.2); Carbon Dioxide 27 mmol/L (22-32); Chloride 104 mmol/L (98-107); Estimated Glomerular Filt Rate > 60 mL/min (>60); Globulin 2.7 g/dL (1.7-4.1); Glucose 99 mg/dL (70-99); HEMOLYSIS < 15 (0-50); Magnesium 2.1 mg/dL (1.6-2.3); Potassium 4.4 mmol/L (3.4-5.1); Sodium 139 mmol/L (137-145); Total Protein 7.1 g/dL (6.3-8.2)
--- NOTE | 2024-07-19 15:15 | DI.MRI.S_ITS ---
PROCEDURE: MR STROKE Pre- and post-contrast brain MRI, non-contrast brain MR angiogram, pre- and postcontrast neck MR angiogram INDICATIONS: Dizziness TECHNIQUE: Brain: Noncontrast axial T1 spin echo, axial T2 fast spin echo, sagittal and axial FLAIR, coronal T2 fast spin echo, axial gradient echo, axial diffusion and ADC through the brain. After the administration of contrast, axial 3D VIBE of the cranial vasculature and brain. Brain MRA: Non-contrast 3-D time of flight MR angiogram, with multiple iaaastz-gdpqerspq-pqqspiueua (MIP) reformats performed. Neck MRA: Axial and sagittal TruFISP through the neck. Coronal dynamic MR angiogram during administration of contrast in the arterial and venous phases, with 3-dimenstional hrdouuk-jlbcjzufg-snryulyvcs (MIP) reformats constructed from subtraction images. COMPARISON: [facility], MR, MR HEAD/BRAIN WO/W CON, 01/01/2024, 15:56. [facility], US, US CAROTID DOPPLER BI, 07/19/2024, 13:07. FINDINGS: Image quality: Excellent. BRAIN: CSF spaces: Ventricles are normal in size and shape. Basal cisterns are patent. No extra-axial fluid collections. Brain: No intracranial bleeds or mass effects. Welch-white matter interface is normal. Diffusion weighted images show no acute infarct. Brainstem appears normal. Normal intravascular flow voids are present. No abnormal intracranial enhancement. Note is made of age-appropriate brain parenchymal volume loss and chronic small vessel ischemic changes. Skull and face: Calvarial marrow signal is normal. Orbits appear normal. Note is made of bilateral lens replacements. Sinuses: Sinuses and mastoids are clear. BRAIN MR ANGIOGRAM: Anterior circulation: Intracranial internal carotid arteries are normal in size and enhancement. The flow within the paired anterior cerebral arteries is normal and symmetric. The flow within the middle cerebral arteries is normal and symmetric. The anterior communicating artery is seen. No stenoses, occlusions, or aneurysms. Posterior circulation: There is poor flow seen within the right V4 segment. The left V4 segment is within normal limits. There is a normal appearing basilar artery. The flow within the posterior cerebral arteries is normal and symmetric. No stenoses, occlusions, or aneurysms. NECK MR ANGIOGRAM: Carotids: Great vessels demonstrate a conventional anatomy as they arise from the aortic arch. There is believed to be at least 50% stenosis of the right proximal internal carotid artery. There is approximately 50% narrowing of the origin of the right common carotid artery. The left common carotid artery appears widely patent. The calibers and courses of both common carotid arteries are normal. At the left carotid bifurcation region, there is a significant stenosis, 70%. Posterior circulation: There is poor flow within the right vertebral artery. Normal flow is seen within the left vertebral artery. Miscellaneous: Subclavian arteries appear patent. Pre-contrast images through the neck show no soft tissue abnormalities. IMPRESSION: BRAIN MRI: No findings of acute or subacute infarction can be seen. Note is made of age-appropriate brain parenchymal volume loss and chronic small vessel ischemic changes. No masses or abnormal enhancement can be seen. BRAIN MR ANGIOGRAM: There is poor flow within the right V4 segment. The intracranial arteries are otherwise unremarkable. NECK MR ANGIOGRAM: 70% narrowing seen involving left carotid bifurcation region. There is 50% narrowing seen involving the origin of the right common carotid artery. There is approximately 50% narrowing seen involving the right proximal subclavian artery. There is poor flow within the right vertebral artery. 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 - If clinically appropriate, please consider a follow-up CT angiogram of the neck for further evaluation. Dictated by: Rajendra Rodriguez M.D. on 07/19/2024 at 14:28 Approved by: Rajendra Rodriguez M.D. on 07/19/2024 at 14:34
--- NOTE | 2024-07-19 15:31 | PC.NURSE ---
pt denies current/recent chest pain, cough, dizziness, changes in mental status, or any pain or discomfort
[2024-07-19] MEDS: ATORVASTATIN 20 MG TABLET 80 MG PO (16:03)
[2024-07-19] MEDS: CLOPIDOGREL 75 MG TABLET PO (16:05)
[2024-07-19] MEDS: ASPIRIN 81 MG CHEW TAB 324 MG PO (16:07)
--- NOTE | 2024-07-19 16:50 | DI.CT.S_ITS ---
PROCEDURE: CT ANGIO HEAD AND NECK INDICATIONS: Dizziness TECHNIQUE: After the administration of intravenous contrast, 1 mm thick sections acquired from the aortic arch through the [place] of [place]. 3-dimensional ewghbbp-hvmfefacc-mzxwpceawn (MIP) and/or volume rendering reformats were acquired of the central intracranial vasculature and neck separately. For radiation dose reduction, the following was used: automated exposure control, adjustment of mA and/or kV according to patient size. COMPARISON: None. FINDINGS: Image quality: Diagnostic. BRAIN: Please refer to same day MRI brain. HEAD CT ANGIOGRAPHY: Anterior circulation: Intracranial internal carotid arteries are normal in size and flow. The flow within the paired anterior cerebral arteries is normal and symmetric. The flow within the middle cerebral arteries is normal and symmetric. The anterior communicating artery is seen. No aneurysms are seen. Posterior circulation: Mildly decreased caliber of the right V4 vertebral artery.. Left vertebral artery is normal in caliber. The join to form a normal appearing basilar artery. Flow within the posterior cerebral arteries is normal and symmetric. No aneurysms are seen. NECK CT ANGIOGRAPHY: Carotid system: The great vessels demonstrate a conventional anatomy as they arise from the aortic arch. Significant calcifications at the origin of the right subclavian artery with likely high-grade stenosis, evaluation is mildly limited secondary to artifact The origins of the common carotid arteries appear patent. The common carotid arteries demonstrate normal caliber and courses. The bifurcation regions demonstrate atherosclerotic calcifications with mild, less than 50% stenosis on the right and moderate stenosis on the left, approximately 70 % stenosis. The internal carotid arteries otherwise demonstrate normal calibers and courses. Posterior circulation: Minimal to no opacification of the proximal and mid right vertebral artery. They join to form a normal appearing basilar artery. Soft tissues: Visualized neck soft tissues demonstrate no suspicious abnormalities. Bones: No suspicious bony lesions. Visualized cervical spine appears normally aligned. Multilevel degenerative changes of the spine. IMPRESSION: Mild narrowing of the right V4 vertebral artery. Otherwise, no significant intracranial arterial abnormality is seen. Again seen stenosis of the bilateral carotid bulbs, less than 50% on the right and approximately 70% on the left. Coarse calcifications at the origin of the right subclavian artery with likely high-grade stenosis. 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 Any quantitative measurements of stenosis were performed using NASCET criteria. Dictated by: Dallas Jordan M.D. on 07/19/2024 at 17:33 Approved by: Dallas Jordan M.D. on 07/19/2024 at 17:42
[2024-07-19] MEDS: SODIUM CHLORIDE 0.9% 500 ML 1000 ML IV (17:04)
[2024-07-19] MEDS: lisinopriL 20 MG TABLET PO (18:58)
--- NOTE | 2024-07-19 19:53 | PC.NURSE ---
pt denies chest pain, SOB, cough or any other sx at this time
== END 2024-07-19 21:07 | disposition home or self-care (01) ==
PROVIDERS: Emergency Provider Emergency Medicine; PCP Family Medicine
DX: I65.23 Occlusion and stenosis of bilateral carotid arteries (principal); I73.9 Peripheral vascular disease, unspecified; R42 Dizziness and giddiness
CPT/HCPCS: 36415; 70496; 70498; 70544; 70549; 70553; 80053; 83735; 85025; 85610; 85730; 93005; 93010; 93880; 96360; 96361; 99284; A9579

== ENCOUNTER 2024-11-18 17:00 | Outpatient (RCR) | payer OTHER, SELFPAY ==
[2021-03-30 14:31] VITALS: BMI 20.2
--- NOTE | 2024-09-12 17:52 | PT.OIE ---
Current Diagnoses Unsteadiness on feet (09/12/24) Other abnormalities of gait and mobility (09/12/24) Repeated falls (09/12/24) Dizziness and giddiness (09/12/24) Past Medical History Anemia Constipation Elevated cholesterol Family history of malignant neoplasm of prostate Family history of prostate cancer Family history of prostate cancer Family history of prostate cancer Family history of prostate cancer Fecal occult blood test positive Gastric wall thickening History of malignant neoplasm of prostate 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 Malignant neoplasm of prostate Mass of hepatic flexure of colon Prostate cancer Prostate cancer Stress at home Past Surgical History (Last Reviewed 06/04/24 @ 13:22 by Uziel Miller DO) History of colonoscopy History of esophagogastroduodenoscopy (EGD) History of tympanoplasty Hx of bilateral cataract extraction Hx of tonsillectomy Visit Care Team Role Provider Type Alanis Layne MD Attending Provider Physician Family Provider Primary Care Provider Referring Provider Specialty: [facility] Practice Address: [address] [place] [address], [facility] Email: [email or web address] Physical Therapy Initial Evaluation PT-OP-A Visit Information Start: 09/12/24 17:15 Freq: Status: Active Protocol: Document 09/12/24 14:30 DCW (Rec: 09/12/24 17:37 DCW [id number]) Out-Patient Physical Therapy Visit Information Visit Information Visit Type Initial Evaluation Visit Start Time 14:30 Visit Stop Time 15:15 Visit Number 1 Number of PIPE WASHER Visits 0 Evaluation Information Evaluation Date 09/12/24 PT-OP-B Current Condition Start: 09/12/24 17:15 Freq: Status: Active Protocol: Document 09/12/24 14:30 DCW (Rec: 09/12/24 17:37 DCW [id number]) Current Condition History of Current Condition Current Complaints Poor balance, path deviation, falls History of Current Pt is an 83 year old male presenting with a complex Condition medical history, complaining of declining balance, weakness, poor gait/increased path deviation. Pt denies any rotational vertigo, describes symptoms as imbalance when up walking. Notes he had severe ear infections as a kid. Feels fine sitting or driving, and is able to walk 5 miles in [place] 3x/week, no fear of falling on pavement. Notes he has had multiple falls in his house, and admits he is hard to follow because of path deviation. Gets off balance with quick turns. Medical history complicated by colon/ prostate cancer treatment/radiation, macular degeneration, and UE/LE neuropathy. 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 Did have a recent ER visit, during which they scanned his carotid artery, and thought there was a blockage, so he had to go down to [facility]. Reports there was no blockage, but some soft plaque, for which he has been put on new medication. Pt feels all his symptoms have worsened since the change in meds, but also admits it could just be that he is aging. Treatment Goals Patient/Caregiver Improve balance and gait stability, limit falls Goals PT-OP-C Subjective Start: 09/12/24 17:15 Freq: Status: Active Protocol: Document 09/12/24 14:30 DCW (Rec: 09/12/24 17:37 DCW [id number]) OP-PT Subjective Patient Comments Patient Comments There has been absolutely no vertigo or spinning. Patient Reported Worse Progress PT-OP-D Balance Start: 09/12/24 17:15 Freq: Status: Active Protocol: Document 09/12/24 14:30 DCW (Rec: 09/12/24 17:37 DCW [id number]) Balance Tests Hopkins Balance Test Hopkins Balance Test 37/56 Score Hopkins Balance Assessment Evaluation Sitting to Standing Independent w/out Hands Ability Unsupported Stance Supervision- 2 minutes Sitting Unsupported, Safely- 2 minutes Feet on Floor Standing to Sitting Safely, Minimal Hand Use Ability Transfer Ability Safely, Hand Use Unsupported Stance- Safely, With Eyes Open Eyes Closed Unsupported Stance- Supervision to maintain Eyes Open Reaching Forward Confidently, 10 inches Standing Pick- Up Object From Supervision Floor Look Behind Shoulder Supervision w/Turning - Standing Turning 360 Degrees Turns slowly, but safely Unsupported Stance, 4 Steps w/Supervision Alternating Feet on Stair Unsupported Tandem Small Step- 30 seconds Stance Unilateral Leg Lifts Leg/Unable to Hold Stance Total Score Hopkins Total Score ( 37 out of 56 points) PT-OP-M Strength Start: 09/12/24 17:15 Freq: Status: Active Protocol: Document 09/12/24 14:30 DCW (Rec: 09/12/24 17:37 CTW [id number]) Hip Strength Hip Manual Muscle Testing Right Flexion (L2) 5 Normal Abduction 4- Good- Adduction 5 Normal External Rotation 5 Normal Internal Rotation 4 Good Left Flexion (L2) 5 Normal Abduction 4- Good- Adduction 5 Normal External Rotation 5 Normal Internal Rotation 4 Good Knee Strength Knee Manual Muscle Testing Right Flexion (S2) 4+ Good+ Extension (L3) 4+ Good+ Left Flexion (S2) 4+ Good+ Extension (L3) 4+ Good+ Ankle/Foot Strength Ankle and Foot Manual Muscle Testing Right Dorsiflexion (L4) 4+ Good+ Left Dorsiflexion (L4) 4+ Good+ PT-OP-O Vestibular Start: 09/12/24 17:15 Freq: Status: Active Protocol: Document 09/12/24 14:30 DCW (Rec: 09/12/24 17:37 CTW [id number]) Vestibular Assessment Visual Testing Smooth Pursuits Saccadic corrections Horizontal Smooth Pursuits Saccadic corrections Vertical Saccades Horizontal WNL Saccades Vertical WNL Heave Test Positive Bilateral Thrust Head Positive Bilateral PT-OP-T Assessment and Plan Start: 09/12/24 17:15 Freq: Status: Active Protocol: Document 09/12/24 14:30 DCW (Rec: 09/12/24 17:52 DC [id number]) Physical Therapy Assessment Rehab Potential Rehabilitation Fair Potential Evaluation Complexity Number of Personal 3 or More Factors/ Comorbidities Number of Body 4 or More Systems Impaired Clinical Unstable Presentation at Evaluation Impairments Impairments Activity Tolerance,Balance,Functional Activities, Functional Mobility,Gait,Strength,Tone Goals Two Impairment Hopkins score of 37/56 indicates increased falls risk Division Director Goal (LTG) Pt to increase Hopkins score by at least eight points to 45/56 in order to demonstrate a reduced risk of falls. LTG Duration 11/12/24 One Impairment Pt does not have an appropriate home exercise program Short Term Goal (STG Pt to be independent and complaint with an appropriate ) HEP STG Duration 10/12/24 Assessment Summary Assessment Pt presents with signs and symptoms consistent with referring diagnosis. Pt demonstrates multi-factorial balance issues, including Presbystasis, neuropathy, macular degeneration, LE weakness, and potential medication side-effects. Pt Hopkins Balance scale score of 37/56 indicates an increased risk of falls, in addition to pt having a history of multiple falls in his home, typically with quick turns. LE weakness and balance may be difficult to improve secondary to pt's decreased androgen production due to cancer treatments. Pt may benefit from skilled therapeutic intervention focusing on static and dynamic balance challenges, gait training, LE strengthening, and NMR. Physical Therapy Plan Frequency and Duration Frequency of 1-2x/week Treatment Plan of Care Start 09/12/24 Date Plan of Care End 11/12/24 Date Therapeutic Interventions Therapeutic Balance Training,Coordination Training,Gait Training, Interventions Home Exercise Program,Manual Therapy,Neuromuscular Re- education,Patient/Caregiver Education,Self-Care/Home Management,Soft Tissue Mobilization,Therapeutic Activities,Therapeutic Exercises,Vestibular Rehabilitation Next Visit Focus/Plan Next Note Type Treatment Note Next Visit Plan DGI, balance challenges, strengthening
--- NOTE | 2024-09-12 17:52 | PT.OPPOC ---
Physical, Occupational & Speech Therapy At [facility] Current Diagnoses Unsteadiness on feet (09/12/24) Other abnormalities of gait and mobility (09/12/24) Repeated falls (09/12/24) Dizziness and giddiness (09/12/24) Visit Care Team Role Provider Type Alanis Layne MD Attending Provider Physician Family Provider Primary Care Provider Referring Provider Specialty: Family Practice Address: [address] [place] [address], [facility] [place] [place], [facility] Email: [email or web address] Plan Of Care PT-OP-B Current Condition Start: 09/12/24 17:15 Freq: Status: Active Protocol: Document 09/12/24 14:30 DCW (Rec: 09/12/24 17:37 DCW [id number]) Current Condition History of Current Condition Current Complaints Poor balance, path deviation, falls History of Current Pt is an 83 year old male presenting with a complex Condition medical history, complaining of declining balance, weakness, poor gait/increased path deviation. Pt denies any rotational vertigo, describes symptoms as imbalance when up walking. Notes he had severe ear infections as a kid. Feels fine sitting or driving, and is able to walk 5 miles in [place] 3x/week, no fear of falling on pavement. Notes he has had multiple falls in his house, and admits he is hard to follow because of path deviation. Gets off balance with quick turns. Medical history complicated by colon/ prostate cancer treatment/radiation, macular degeneration, and UE/LE neuropathy. 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 Did have a recent ER visit, during which they scanned his carotid artery, and thought there was a blockage, so he had to go down to [facility]. Reports there was no blockage, but some soft plaque, for which he has been put on new medication. Pt feels all his symptoms have worsened since the change in meds, but also admits it could just be that he is aging. Treatment Goals Patient/Caregiver Improve balance and gait stability, limit falls Goals PT-OP-T Assessment and Plan Start: 09/12/24 17:15 Freq: Status: Active Protocol: Document 09/12/24 14:30 DC (Rec: 09/12/24 17:52 DC [id number]) Physical Therapy Assessment Rehab Potential Rehabilitation Fair Potential Evaluation Complexity Number of Personal 3 or More Factors/ Comorbidities Number of Body 4 or More Systems Impaired Clinical Unstable Presentation at Evaluation Impairments Impairments Activity Tolerance,Balance,Functional Activities, Functional Mobility,Gait,Strength,Tone Goals Two Impairment Hopkins score of 37/56 indicates increased falls risk Mcfp Goal (LTG) Pt to increase Hopkins score by at least eight points to 45/56 in order to demonstrate a reduced risk of falls. LTG Duration 11/12/24 One Impairment Pt does not have an appropriate home exercise program Short Term Goal (STG Pt to be independent and complaint with an appropriate ) HEP STG Duration 10/12/24 Assessment Summary Assessment Pt presents with signs and symptoms consistent with referring diagnosis. Pt demonstrates multi-factorial balance issues, including Presbystasis, neuropathy, macular degeneration, LE weakness, and potential medication side-effects. Pt Hopkins Balance scale score of 37/56 indicates an increased risk of falls, in addition to pt having a history of multiple falls in his home, typically with quick turns. LE weakness and balance may be difficult to improve secondary to pt's decreased androgen production due to cancer treatments. Pt may benefit from skilled therapeutic intervention focusing on static and dynamic balance challenges, gait training, LE strengthening, and NMR. Physical Therapy Plan Frequency and Duration Frequency of 1-2x/week Treatment Plan of Care Start 09/12/24 Date Plan of Care End 11/12/24 Date Therapeutic Interventions Therapeutic Balance Training,Coordination Training,Gait Training, Interventions Home Exercise Program,Manual Therapy,Neuromuscular Re- education,Patient/Caregiver Education,Self-Care/Home Management,Soft Tissue Mobilization,Therapeutic Activities,Therapeutic Exercises,Vestibular Rehabilitation Next Visit Focus/Plan Next Note Type Treatment Note Next Visit Plan DGI, balance challenges, strengthening Plan of Care Dates Plan of Care Start Date 09/12/24 Plan of Care End Date 11/12/24 Electronically Signed by: Prince Esparza, PT 09/12/24 [id number] If you are in agreement with this Plan of Care, please return a signed and dated copy. I have reviewed this Plan of Care and certify that the skilled therapy services above are required to meet the patient?s needs. Physician Signature Date Printed Name and Credentials Clinical Instructor Signature Printed Name and Credentials
--- NOTE | 2024-09-17 17:48 | PT.OTN ---
Current Diagnoses Unsteadiness on feet (09/17/24) Other abnormalities of gait and mobility (09/17/24) Repeated falls (09/17/24) Dizziness and giddiness (09/17/24) Physical Therapy Treatment Note PT-OP-A Visit Information Start: 09/12/24 17:15 Freq: Status: Active Protocol: Document 09/17/24 17:00 DCW (Rec: 09/17/24 17:47 DCW [id number]) Out-Patient Physical Therapy Visit Information Visit Information Visit Type Treatment Note Visit Start Time 17:00 Visit Stop Time 17:45 Visit Number 2 Number of STEREOTYPER APPRENTICE Visits 0 Evaluation Information Evaluation Date 09/12/24 PT-OP-B Current Condition Start: 09/12/24 17:15 Freq: Status: Active Protocol: Document 09/12/24 14:30 DCW (Rec: 09/12/24 17:37 DCW [id number]) Current Condition History of Current Condition Current Complaints Poor balance, path deviation, falls History of Current Pt is an 83 year old male presenting with a complex Condition medical history, complaining of declining balance, weakness, poor gait/increased path deviation. Pt denies any rotational vertigo, describes symptoms as imbalance when up walking. Notes he had severe ear infections as a kid. Feels fine sitting or driving, and is able to walk 5 miles in [place] 3x/week, no fear of falling on pavement. Notes he has had multiple falls in his house, and admits he is hard to follow because of path deviation. Gets off balance with quick turns. Medical history complicated by colon/ prostate cancer treatment/radiation, macular degeneration, and UE/LE neuropathy. 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 Did have a recent ER visit, during which they scanned his carotid artery, and thought there was a blockage, so he had to go down to [facility]. Reports there was no blockage, but some soft plaque, for which he has been put on new medication. Pt feels all his symptoms have worsened since the change in meds, but also admits it could just be that he is aging. Treatment Goals Patient/Caregiver Improve balance and gait stability, limit falls Goals PT-OP-C Subjective Start: 09/12/24 17:15 Freq: Status: Active Protocol: Document 09/17/24 17:00 DCW (Rec: 09/17/24 17:47 DCW [id number]) OP-PT Subjective Patient Comments Patient Comments The balance is still bad, but I'm feeling good. PT-OP-D Balance Start: 09/12/24 17:15 Freq: Status: Active Protocol: Document 09/12/24 14:30 DCW (Rec: 09/12/24 17:37 DCW [id number]) Balance Tests Hopkins Balance Test Hopkins Balance Test 37/56 Score Hopkins Balance Assessment Evaluation Sitting to Standing Independent w/out Hands Ability Unsupported Stance Supervision- 2 minutes Sitting Unsupported, Safely- 2 minutes Feet on Floor Standing to Sitting Safely, Minimal Hand Use Ability Transfer Ability Safely, Hand Use Unsupported Stance- Safely, With Eyes Open Eyes Closed Unsupported Stance- Supervision to maintain Eyes Open Reaching Forward Confidently, 10 inches Standing Pick- Up Object From Supervision Floor Look Behind Shoulder Supervision w/Turning - Standing Turning 360 Degrees Turns slowly, but safely Unsupported Stance, 4 Steps w/Supervision Alternating Feet on Stair Unsupported Tandem Small Step- 30 seconds Stance Unilateral Leg Lifts Leg/Unable to Hold Stance Total Score Hopkins Total Score ( 37 out of 56 points) PT-OP-E Functional Tests Start: 09/12/24 17:15 Freq: Status: Active Protocol: Document 09/17/24 17:00 DCW (Rec: 09/17/24 17:48 DCW [id number]) Functional Tests Dynamic Gait Index (DGI) Score 1624 PT-OP-M Strength Start: 09/12/24 17:15 Freq: Status: Active Protocol: Document 09/12/24 14:30 DCW (Rec: 09/12/24 17:37 DCW [id number]) Hip Strength Hip Manual Muscle Testing Right Flexion (L2) 5 Normal Abduction 4- Good- Adduction 5 Normal External Rotation 5 Normal Internal Rotation 4 Good Left Flexion (L2) 5 Normal Abduction 4- Good- Adduction 5 Normal External Rotation 5 Normal Internal Rotation 4 Good Knee Strength Knee Manual Muscle Testing Right Flexion (S2) 4+ Good+ Extension (L3) 4+ Good+ Left Flexion (S2) 4+ Good+ Extension (L3) 4+ Good+ Ankle/Foot Strength Ankle and Foot Manual Muscle Testing Right Dorsiflexion (L4) 4+ Good+ Left Dorsiflexion (L4) 4+ Good+ PT-OP-O Vestibular Start: 09/12/24 17:15 Freq: Status: Active Protocol: Document 09/12/24 14:30 DCW (Rec: 09/12/24 17:37 DCW [id number]) Vestibular Assessment Visual Testing Smooth Pursuits Saccadic corrections Horizontal Smooth Pursuits Saccadic corrections Vertical Saccades Horizontal WNL Saccades Vertical WNL Heave Test Positive Bilateral Thrust Head Positive Bilateral PT-OP-Q Treatments Start: 09/12/24 17:15 Freq: Status: Active Protocol: Document 09/17/24 17:00 DCW (Rec: 09/17/24 17:47 DCW [id number]) Cardio Equipment Recumbent Stepper (Sci-Fit) Duration (Minutes) 5 Resistance 4 Seat Position 10 seat, 6 arms Other NuStep Therapeutic Exercises Other Exercises Resisted Ambulation Other Exercise Name Resisted side-stepping Resistance Green loop Equipment Used // bars Neuro Re-Education Treatment Balance Activities Foam Details horizontal/vertical X1 viewing, eyes closed SLS Details SLS Equipment // bars Tandem Details Tandem Stance Equipment // bars Other Activities Testing Details DGI - PT-OP-T Assessment and Plan Start: 09/12/24 17:15 Freq: Status: Active Protocol: Document 09/17/24 17:00 DCW (Rec: 09/17/24 17:47 DCW [id number]) Physical Therapy Assessment Impairments Impairments Activity Tolerance,Balance,Functional Activities, Functional Mobility,Gait,Strength,Tone Goals Two Impairment Hopkins score of 37/56 indicates increased falls risk [employer] Goal (LTG) Pt to increase Hopkins score by at least eight points to 45/56 in order to demonstrate a reduced risk of falls. LTG Duration 11/12/24 One Impairment Pt does not have an appropriate home exercise program Short Term Goal (STG Pt to be independent and complaint with an appropriate ) HEP STG Duration 10/12/24 Assessment Summary Assessment Good response to treatment today, pt surprised himself with ability to maintain SLS and tandem for multiple seconds. [place] strengthening exercises worked well. DGI does also indicate increased falls risk, scoring a 16/ 24. Pt will likely benefit from continued focus on strengthening and balance training. Physical Therapy Plan Frequency and Duration Frequency of 1-2x/week Treatment Plan of Care Start 09/12/24 Date Plan of Care End 11/12/24 Date Therapeutic Interventions Therapeutic Balance Training,Coordination Training,Gait Training, Interventions Home Exercise Program,Manual Therapy,Neuromuscular Re- education,Patient/Caregiver Education,Self-Care/Home Management,Soft Tissue Mobilization,Therapeutic Activities,Therapeutic Exercises,Vestibular Rehabilitation Next Visit Focus/Plan Next Note Type Treatment Note Next Visit Plan DGI, balance challenges, strengthening
--- NOTE | 2024-09-24 16:59 | PT.OTN ---
Current Diagnoses Unsteadiness on feet (09/24/24) Other abnormalities of gait and mobility (09/24/24) Repeated falls (09/24/24) Dizziness and giddiness (09/24/24) Physical Therapy Treatment Note PT-OP-A Visit Information Start: 09/12/24 17:15 Freq: Status: Active Protocol: Document 09/24/24 16:15 DCW (Rec: 09/24/24 16:58 DCW [id number]) Out-Patient Physical Therapy Visit Information Visit Information Visit Type Treatment Note Visit Start Time 16:15 Visit Stop Time 17:00 Visit Number 3 Number of CHIMNEY BUILDER HELPER Visits 0 Evaluation Information Evaluation Date 09/12/24 PT-OP-B Current Condition Start: 09/12/24 17:15 Freq: Status: Active Protocol: Document 09/12/24 14:30 DCW (Rec: 09/12/24 17:37 DCW [id number]) Current Condition History of Current Condition Current Complaints Poor balance, path deviation, falls History of Current Pt is an 83 year old male presenting with a complex Condition medical history, complaining of declining balance, weakness, poor gait/increased path deviation. Pt denies any rotational vertigo, describes symptoms as imbalance when up walking. Notes he had severe ear infections as a kid. Feels fine sitting or driving, and is able to walk 5 miles in [place] 3x/week, no fear of falling on pavement. Notes he has had multiple falls in his house, and admits he is hard to follow because of path deviation. Gets off balance with quick turns. Medical history complicated by colon/ prostate cancer treatment/radiation, macular degeneration, and UE/LE neuropathy. 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 Did have a recent ER visit, during which they scanned his carotid artery, and thought there was a blockage, so he had to go down to [facility]. Reports there was no blockage, but some soft plaque, for which he has been put on new medication. Pt feels all his symptoms have worsened since the change in meds, but also admits it could just be that he is aging. Treatment Goals Patient/Caregiver Improve balance and gait stability, limit falls Goals PT-OP-C Subjective Start: 09/12/24 17:15 Freq: Status: Active Protocol: Document 09/24/24 16:15 DCW (Rec: 09/24/24 16:58 DCW [id number]) OP-PT Subjective Patient Comments Patient Comments I had maybe my best day of walking Monday, and one of my worst yesterday, so I don't know. PT-OP-D Balance Start: 09/12/24 17:15 Freq: Status: Active Protocol: Document 09/12/24 14:30 DCW (Rec: 09/12/24 17:37 DCW [id number]) Balance Tests Hopkins Balance Test Hopkins Balance Test 37/56 Score Hopkins Balance Assessment Evaluation Sitting to Standing Independent w/out Hands Ability Unsupported Stance Supervision- 2 minutes Sitting Unsupported, Safely- 2 minutes Feet on Floor Standing to Sitting Safely, Minimal Hand Use Ability Transfer Ability Safely, Hand Use Unsupported Stance- Safely, With Eyes Open Eyes Closed Unsupported Stance- Supervision to maintain Eyes Open Reaching Forward Confidently, 10 inches Standing Pick- Up Object From Supervision Floor Look Behind Shoulder Supervision w/Turning - Standing Turning 360 Degrees Turns slowly, but safely Unsupported Stance, 4 Steps w/Supervision Alternating Feet on Stair Unsupported Tandem Small Step- 30 seconds Stance Unilateral Leg Lifts Leg/Unable to Hold Stance Total Score Hopkins Total Score ( 37 out of 56 points) PT-OP-E Functional Tests Start: 09/12/24 17:15 Freq: Status: Active Protocol: Document 09/17/24 17:00 DCW (Rec: 09/17/24 17:48 DCW [id number]) Functional Tests Dynamic Gait Index (DGI) Score 1624 PT-OP-M Strength Start: 09/12/24 17:15 Freq: Status: Active Protocol: Document 09/12/24 14:30 DCW (Rec: 09/12/24 17:37 DCW [id number]) Hip Strength Hip Manual Muscle Testing Right Flexion (L2) 5 Normal Abduction 4- Good- Adduction 5 Normal External Rotation 5 Normal Internal Rotation 4 Good Left Flexion (L2) 5 Normal Abduction 4- Good- Adduction 5 Normal External Rotation 5 Normal Internal Rotation 4 Good Knee Strength Knee Manual Muscle Testing Right Flexion (S2) 4+ Good+ Extension (L3) 4+ Good+ Left Flexion (S2) 4+ Good+ Extension (L3) 4+ Good+ Ankle/Foot Strength Ankle and Foot Manual Muscle Testing Right Dorsiflexion (L4) 4+ Good+ Left Dorsiflexion (L4) 4+ Good+ PT-OP-O Vestibular Start: 09/12/24 17:15 Freq: Status: Active Protocol: Document 09/12/24 14:30 DCW (Rec: 09/12/24 17:37 DCW [id number]) Vestibular Assessment Visual Testing Smooth Pursuits Saccadic corrections Horizontal Smooth Pursuits Saccadic corrections Vertical Saccades Horizontal WNL Saccades Vertical WNL Heave Test Positive Bilateral Thrust Head Positive Bilateral PT-OP-Q Treatments Start: 09/12/24 17:15 Freq: Status: Active Protocol: Document 09/24/24 16:15 DCW (Rec: 09/24/24 16:58 DCW [id number]) Cardio Equipment Recumbent Stepper (Sci-Fit) Duration (Minutes) 5 Resistance 6 Seat Position 12 seat, 9 arms Other NuStep Gym Equipment Shuttle Recovery Unilateral Squats Resistance 37# Shuttle Recovery Stable Platform Bilateral Squats Resistance 75# Shuttle Recovery Stable Platform Shuttle Balance Red Details WBOS Neuro Re-Education Treatment Balance Activities Hurdles Details Hurdles/Foam Equipment // bars Toe-taps Details Cone taps Surface AirEx SLS Details SLS Equipment // bars Tandem Details Tandem Stance Equipment // bars PT-OP-T Assessment and Plan Start: 09/12/24 17:15 Freq: Status: Active Protocol: Document 09/24/24 16:15 DCW (Rec: 09/24/24 16:58 DCW [id number]) Physical Therapy Assessment Impairments Impairments Activity Tolerance,Balance,Functional Activities, Functional Mobility,Gait,Strength,Tone Goals Two Impairment Hopkins score of 37/56 indicates increased falls risk Goat Herder Goal (LTG) Pt to increase Hopkins score by at least eight points to 45/56 in order to demonstrate a reduced risk of falls. LTG Duration 11/12/24 One Impairment Pt does not have an appropriate home exercise program Short Term Goal (STG Pt to be independent and complaint with an appropriate ) HEP STG Duration 10/12/24 Assessment Summary Assessment Pt noted significant challenges with balance activities today. [place] leg press worked a good area that he felt was weak. Continue working on balance, gait, and strengthening. Physical Therapy Plan Frequency and Duration Frequency of 1-2x/week Treatment Plan of Care Start 09/12/24 Date Plan of Care End 11/12/24 Date Therapeutic Interventions Therapeutic Balance Training,Coordination Training,Gait Training, Interventions Home Exercise Program,Manual Therapy,Neuromuscular Re- education,Patient/Caregiver Education,Self-Care/Home Management,Soft Tissue Mobilization,Therapeutic Activities,Therapeutic Exercises,Vestibular Rehabilitation Next Visit Focus/Plan Next Note Type Treatment Note Next Visit Plan DGI, balance challenges, strengthening
--- NOTE | 2024-10-01 17:46 | PT.OTN ---
Addendum entered and electronically signed by Prince Esparza, PT 10/01/24 17:51: PT direct supervision and direction to student PT Mike Delgado throughout session Original Note: Current Diagnoses Unsteadiness on feet (10/01/24) Other abnormalities of gait and mobility (10/01/24) Repeated falls (10/01/24) Dizziness and giddiness (10/01/24) Physical Therapy Treatment Note PT-OP-A Visit Information Start: 09/12/24 17:15 Freq: Status: Active Protocol: Document 10/01/24 16:18 LFG (Rec: 10/01/24 17:09 LFG [id number]) Out-Patient Physical Therapy Visit Information Visit Information Visit Type Treatment Note Visit Start Time 16:18 Visit Stop Time 16:57 Visit Number 4 Number of ENGINEERING TEST MECHANIC Visits 0 Evaluation Information Evaluation Date 09/12/24 PT-OP-B Current Condition Start: 09/12/24 17:15 Freq: Status: Active Protocol: Document 09/12/24 14:30 DCW (Rec: 09/12/24 17:37 DCW [id number]) Current Condition History of Current Condition Current Complaints Poor balance, path deviation, falls History of Current Pt is an 83 year old male presenting with a complex Condition medical history, complaining of declining balance, weakness, poor gait/increased path deviation. Pt denies any rotational vertigo, describes symptoms as imbalance when up walking. Notes he had severe ear infections as a kid. Feels fine sitting or driving, and is able to walk 5 miles in [place] 3x/week, no fear of falling on pavement. Notes he has had multiple falls in his house, and admits he is hard to follow because of path deviation. Gets off balance with quick turns. Medical history complicated by colon/ prostate cancer treatment/radiation, macular degeneration, and UE/LE neuropathy. 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 Did have a recent ER visit, during which they scanned his carotid artery, and thought there was a blockage, so he had to go down to [facility]. Reports there was no blockage, but some soft plaque, for which he has been put on new medication. Pt feels all his symptoms have worsened since the change in meds, but also admits it could just be that he is aging. Treatment Goals Patient/Caregiver Improve balance and gait stability, limit falls Goals PT-OP-C Subjective Start: 09/12/24 17:15 Freq: Status: Active Protocol: Document 10/01/24 16:18 LFG (Rec: 10/01/24 17:09 LFG [id number]) OP-PT Subjective Patient Comments Patient Comments Patient reports feeling okay today. Still walking 5miles 3x/week around [facility]. PT-OP-D Balance Start: 09/12/24 17:15 Freq: Status: Active Protocol: Document 09/12/24 14:30 DCW (Rec: 09/12/24 17:37 DCW [id number]) Balance Tests Hopkins Balance Test Hopkins Balance Test 37/56 Score Hopkins Balance Assessment Evaluation Sitting to Standing Independent w/out Hands Ability Unsupported Stance Supervision- 2 minutes Sitting Unsupported, Safely- 2 minutes Feet on Floor Standing to Sitting Safely, Minimal Hand Use Ability Transfer Ability Safely, Hand Use Unsupported Stance- Safely, With Eyes Open Eyes Closed Unsupported Stance- Supervision to maintain Eyes Open Reaching Forward Confidently, 10 inches Standing Pick- Up Object From Supervision Floor Look Behind Shoulder Supervision w/Turning - Standing Turning 360 Degrees Turns slowly, but safely Unsupported Stance, 4 Steps w/Supervision Alternating Feet on Stair Unsupported Tandem Small Step- 30 seconds Stance Unilateral Leg Lifts Leg/Unable to Hold Stance Total Score Hopkins Total Score ( 37 out of 56 points) PT-OP-E Functional Tests Start: 09/12/24 17:15 Freq: Status: Active Protocol: Document 09/17/24 17:00 DCW (Rec: 09/17/24 17:48 DCW [id number]) Functional Tests Dynamic Gait Index (DGI) Score PT-OP-M Strength Start: 09/12/24 17:15 Freq: Status: Active Protocol: Document 09/12/24 14:30 DCW (Rec: 09/12/24 17:37 DCW [id number]) Hip Strength Hip Manual Muscle Testing Right Flexion (L2) 5 Normal Abduction 4- Good- Adduction 5 Normal External Rotation 5 Normal Internal Rotation 4 Good Left Flexion (L2) 5 Normal Abduction 4- Good- Adduction 5 Normal External Rotation 5 Normal Internal Rotation 4 Good Knee Strength Knee Manual Muscle Testing Right Flexion (S2) 4+ Good+ Extension (L3) 4+ Good+ Left Flexion (S2) 4+ Good+ Extension (L3) 4+ Good+ Ankle/Foot Strength Ankle and Foot Manual Muscle Testing Right Dorsiflexion (L4) 4+ Good+ Left Dorsiflexion (L4) 4+ Good+ PT-OP-O Vestibular Start: 09/12/24 17:15 Freq: Status: Active Protocol: Document 09/12/24 14:30 DCW (Rec: 09/12/24 17:37 DCW [id number]) Vestibular Assessment Visual Testing Smooth Pursuits Saccadic corrections Horizontal Smooth Pursuits Saccadic corrections Vertical Saccades Horizontal WNL Saccades Vertical WNL Heave Test Positive Bilateral Thrust Head Positive Bilateral PT-OP-Q Treatments Start: 09/12/24 17:15 Freq: Status: Active Protocol: Document 10/01/24 16:18 LFG (Rec: 10/01/24 17:09 LFG [id number]) Gym Equipment Shuttle Recovery Unilateral Squats Details cues to slow ecc Resistance 37# Shuttle Recovery Stable Platform Reps/Time x15 Bilateral Squats Details cues to slow ecc Resistance 75# Shuttle Recovery Stable Platform Reps/Time x15 Therapeutic Exercises Standing Exercises SL hip abd/ext Standing Exercise SL hip abduction/extension/marches Name Side bilateral Resistance L2 Equipment Used // bars, held on w/ both UE Reps/Minutes x12 Neuro Re-Education Treatment Balance Activities Hurdles Details Hurdles - fwd/lateral Equipment // bars Comments CGA, struggled fwd walk, knocked over lot of hurdles with back foot Toe-taps Details Cone taps Equipment // bars Comments CGA Tandem Details Tandem Stance holds + walking Equipment // bars Reps/Duration 2x60s, walking x2 Comments CGA, walked modified tandem and full tandem PT-OP-T Assessment and Plan Start: 09/12/24 17:15 Freq: Status: Active Protocol: Document 10/01/24 16:18 LFG (Rec: 10/01/24 17:09 LFG [id number]) Physical Therapy Assessment Impairments Impairments Activity Tolerance,Balance,Functional Activities, Functional Mobility,Gait,Strength,Tone Goals Two Impairment Hopkins score of 37/56 indicates increased falls risk Bobtail Driver Goal (LTG) Pt to increase Hopkins score by at least eight points to 45/56 in order to demonstrate a reduced risk of falls. LTG Duration 11/12/24 One Impairment Pt does not have an appropriate home exercise program Short Term Goal (STG Pt to be independent and complaint with an appropriate ) HEP STG Duration 10/12/24 Assessment Summary Assessment Patient was challenged with balance training in todays session. Was able to correct loss of balance/stumbling during the hurdles exercise with CGA. Tandem stance continues to pose challenging as well. Continue working on balance, gait and strengthening. Physical Therapy Plan Frequency and Duration Frequency of 1-2x/week Treatment Plan of Care Start 09/12/24 Date Plan of Care End 11/12/24 Date Therapeutic Interventions Therapeutic Balance Training,Coordination Training,Gait Training, Interventions Home Exercise Program,Manual Therapy,Neuromuscular Re- education,Patient/Caregiver Education,Self-Care/Home Management,Soft Tissue Mobilization,Therapeutic Activities,Therapeutic Exercises,Vestibular Rehabilitation Next Visit Focus/Plan Next Note Type Treatment Note Next Visit Plan DGI, balance challenges, strengthening
--- NOTE | 2024-10-08 16:59 | PT.OTN ---
Current Diagnoses Unsteadiness on feet (10/08/24) Other abnormalities of gait and mobility (10/08/24) Repeated falls (10/08/24) Dizziness and giddiness (10/08/24) Physical Therapy Treatment Note PT-OP-A Visit Information Start: 09/12/24 17:15 Freq: Status: Active Protocol: Document 10/08/24 16:15 DCW (Rec: 10/08/24 16:58 DCW [id number]) Out-Patient Physical Therapy Visit Information Visit Information Visit Type Treatment Note Visit Start Time 16:15 Visit Stop Time 17:00 Visit Number 4 Number of STEEL PLACER Visits 0 Evaluation Information Evaluation Date 09/12/24 PT-OP-B Current Condition Start: 09/12/24 17:15 Freq: Status: Active Protocol: Document 09/12/24 14:30 DCW (Rec: 09/12/24 17:37 DCW [id number]) Current Condition History of Current Condition Current Complaints Poor balance, path deviation, falls History of Current Pt is an 83 year old male presenting with a complex Condition medical history, complaining of declining balance, weakness, poor gait/increased path deviation. Pt denies any rotational vertigo, describes symptoms as imbalance when up walking. Notes he had severe ear infections as a kid. Feels fine sitting or driving, and is able to walk 5 miles in [place] 3x/week, no fear of falling on pavement. Notes he has had multiple falls in his house, and admits he is hard to follow because of path deviation. Gets off balance with quick turns. Medical history complicated by colon/ prostate cancer treatment/radiation, macular degeneration, and UE/LE neuropathy. 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 Did have a recent ER visit, during which they scanned his carotid artery, and thought there was a blockage, so he had to go down to [facility]. Reports there was no blockage, but some soft plaque, for which he has been put on new medication. Pt feels all his symptoms have worsened since the change in meds, but also admits it could just be that he is aging. Treatment Goals Patient/Caregiver Improve balance and gait stability, limit falls Goals PT-OP-C Subjective Start: 09/12/24 17:15 Freq: Status: Active Protocol: Document 10/08/24 16:15 DCW (Rec: 10/08/24 16:58 DCW [id number]) OP-PT Subjective Patient Comments Patient Comments Pt reports he is struggling today, woke up feeling like his balance was off, which has continued all day Has been working hard overall, exercising every morning, feels his stamina is great, just feels off balance. PT-OP-D Balance Start: 09/12/24 17:15 Freq: Status: Active Protocol: Document 09/12/24 14:30 DCW (Rec: 09/12/24 17:37 DCW [id number]) Balance Tests Hopkins Balance Test Hopkins Balance Test 37/56 Score Hopkins Balance Assessment Evaluation Sitting to Standing Independent w/out Hands Ability Unsupported Stance Supervision- 2 minutes Sitting Unsupported, Safely- 2 minutes Feet on Floor Standing to Sitting Safely, Minimal Hand Use Ability Transfer Ability Safely, Hand Use Unsupported Stance- Safely, With Eyes Open Eyes Closed Unsupported Stance- Supervision to maintain Eyes Open Reaching Forward Confidently, 10 inches Standing Pick- Up Object From Supervision Floor Look Behind Shoulder Supervision w/Turning - Standing Turning 360 Degrees Turns slowly, but safely Unsupported Stance, 4 Steps w/Supervision Alternating Feet on Stair Unsupported Tandem Small Step- 30 seconds Stance Unilateral Leg Lifts Leg/Unable to Hold Stance Total Score Hopkins Total Score ( 37 out of 56 points) PT-OP-E Functional Tests Start: 09/12/24 17:15 Freq: Status: Active Protocol: Document 09/17/24 17:00 DCW (Rec: 09/17/24 17:48 DCW [id number]) Functional Tests Dynamic Gait Index (DGI) Score 1624 PT-OP-M Strength Start: 09/12/24 17:15 Freq: Status: Active Protocol: Document 09/12/24 14:30 DCW (Rec: 09/12/24 17:37 DCW [id number]) Hip Strength Hip Manual Muscle Testing Right Flexion (L2) 5 Normal Abduction 4- Good- Adduction 5 Normal External Rotation 5 Normal Internal Rotation 4 Good Left Flexion (L2) 5 Normal Abduction 4- Good- Adduction 5 Normal External Rotation 5 Normal Internal Rotation 4 Good Knee Strength Knee Manual Muscle Testing Right Flexion (S2) 4+ Good+ Extension (L3) 4+ Good+ Left Flexion (S2) 4+ Good+ Extension (L3) 4+ Good+ Ankle/Foot Strength Ankle and Foot Manual Muscle Testing Right Dorsiflexion (L4) 4+ Good+ Left Dorsiflexion (L4) 4+ Good+ PT-OP-O Vestibular Start: 09/12/24 17:15 Freq: Status: Active Protocol: Document 09/12/24 14:30 DCW (Rec: 09/12/24 17:37 DCW [id number]) Vestibular Assessment Visual Testing Smooth Pursuits Saccadic corrections Horizontal Smooth Pursuits Saccadic corrections Vertical Saccades Horizontal WNL Saccades Vertical WNL Heave Test Positive Bilateral Thrust Head Positive Bilateral PT-OP-Q Treatments Start: 09/12/24 17:15 Freq: Status: Active Protocol: Document 10/08/24 16:15 DCW (Rec: 10/08/24 16:58 DCW [id number]) Cardio Equipment Recumbent Stepper (Sci-Fit) Duration (Minutes) 5 Resistance 3 Seat Position 12 seat, 9 arms Other NuStep Gym Equipment Shuttle Recovery Unilateral Squats Resistance 37# Shuttle Recovery Stable Platform Reps/Time x15 Bilateral Squats Resistance 75# Shuttle Recovery Stable Platform Reps/Time x15 Shuttle Balance Red Details WBOS, Staggered Neuro Re-Education Treatment Balance Activities Hurdles Details Hurdles/Foam Equipment // bars Comments Fwd /c foam, lateral /s foam Toe-taps Details Cone taps Surface AirEx Equipment // bars Comments CGA Foam Details eyes closed PT-OP-T Assessment and Plan Start: 09/12/24 17:15 Freq: Status: Active Protocol: Document 10/08/24 16:15 DCW (Rec: 10/08/24 16:58 DCW [id number]) Physical Therapy Assessment Impairments Impairments Activity Tolerance,Balance,Functional Activities, Functional Mobility,Gait,Strength,Tone Goals Two Impairment Hopkins score of 37/56 indicates increased falls risk Pie Maker Goal (LTG) Pt to increase Hopkins score by at least eight points to 45/56 in order to demonstrate a reduced risk of falls. LTG Duration 11/12/24 One Impairment Pt does not have an appropriate home exercise program Short Term Goal (STG Pt to be independent and complaint with an appropriate ) HEP STG Duration 10/12/24 Assessment Summary Assessment Pt continues to note significant challenges with his balance activities. Is feeling better regarding HEP and functional mobility, although is admitting today is not a good day. Continue to work on balance, LE strengthening, and functional mobility. Physical Therapy Plan Frequency and Duration Frequency of 1-2x/week Treatment Plan of Care Start 09/12/24 Date Plan of Care End 11/12/24 Date Therapeutic Interventions Therapeutic Balance Training,Coordination Training,Gait Training, Interventions Home Exercise Program,Manual Therapy,Neuromuscular Re- education,Patient/Caregiver Education,Self-Care/Home Management,Soft Tissue Mobilization,Therapeutic Activities,Therapeutic Exercises,Vestibular Rehabilitation Next Visit Focus/Plan Next Note Type Treatment Note Next Visit Plan DGI, balance challenges, strengthening
--- NOTE | 2024-10-15 16:06 | PT.OTN ---
Current Diagnoses Unsteadiness on feet (10/15/24) Other abnormalities of gait and mobility (10/15/24) Repeated falls (10/15/24) Dizziness and giddiness (10/15/24) Physical Therapy Treatment Note PT-OP-A Visit Information Start: 09/12/24 17:15 Freq: Status: Active Protocol: Document 10/15/24 15:15 DCW (Rec: 10/15/24 16:06 DCW [id number]) Out-Patient Physical Therapy Visit Information Visit Information Visit Type Treatment Note Visit Start Time 15:15 Visit Stop Time 16:00 Visit Number 5 Number of COMPENSATION AND BENEFITS ANALYST Visits 0 Evaluation Information Evaluation Date 09/12/24 PT-OP-B Current Condition Start: 09/12/24 17:15 Freq: Status: Active Protocol: Document 09/12/24 14:30 DCW (Rec: 09/12/24 17:37 DCW [id number]) Current Condition History of Current Condition Current Complaints Poor balance, path deviation, falls History of Current Pt is an 83 year old male presenting with a complex Condition medical history, complaining of declining balance, weakness, poor gait/increased path deviation. Pt denies any rotational vertigo, describes symptoms as imbalance when up walking. Notes he had severe ear infections as a kid. Feels fine sitting or driving, and is able to walk 5 miles in [place] 3x/week, no fear of falling on pavement. Notes he has had multiple falls in his house, and admits he is hard to follow because of path deviation. Gets off balance with quick turns. Medical history complicated by colon/ prostate cancer treatment/radiation, macular degeneration, and UE/LE neuropathy. 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 Did have a recent ER visit, during which they scanned his carotid artery, and thought there was a blockage, so he had to go down to [facility]. Reports there was no blockage, but some soft plaque, for which he has been put on new medication. Pt feels all his symptoms have worsened since the change in meds, but also admits it could just be that he is aging. Treatment Goals Patient/Caregiver Improve balance and gait stability, limit falls Goals PT-OP-C Subjective Start: 09/12/24 17:15 Freq: Status: Active Protocol: Document 10/15/24 15:15 DCW (Rec: 10/15/24 16:06 DCW [id number]) OP-PT Subjective Patient Comments Patient Comments I'm not sure if I'm feeling much better. PT-OP-D Balance Start: 09/12/24 17:15 Freq: Status: Active Protocol: Document 09/12/24 14:30 DCW (Rec: 09/12/24 17:37 DCW [id number]) Balance Tests Hopkins Balance Test Hopkins Balance Test 37/56 Score Hopkins Balance Assessment Evaluation Sitting to Standing Independent w/out Hands Ability Unsupported Stance Supervision- 2 minutes Sitting Unsupported, Safely- 2 minutes Feet on Floor Standing to Sitting Safely, Minimal Hand Use Ability Transfer Ability Safely, Hand Use Unsupported Stance- Safely, With Eyes Open Eyes Closed Unsupported Stance- Supervision to maintain Eyes Open Reaching Forward Confidently, 10 inches Standing Pick- Up Object From Supervision Floor Look Behind Shoulder Supervision w/Turning - Standing Turning 360 Degrees Turns slowly, but safely Unsupported Stance, 4 Steps w/Supervision Alternating Feet on Stair Unsupported Tandem Small Step- 30 seconds Stance Unilateral Leg Lifts Leg/Unable to Hold Stance Total Score Hopkins Total Score ( 37 out of 56 points) PT-OP-E Functional Tests Start: 09/12/24 17:15 Freq: Status: Active Protocol: Document 09/17/24 17:00 DCW (Rec: 09/17/24 17:48 DCW [id number]) Functional Tests Dynamic Gait Index (DGI) Score 1624 PT-OP-M Strength Start: 09/12/24 17:15 Freq: Status: Active Protocol: Document 09/12/24 14:30 DCW (Rec: 09/12/24 17:37 DCW [id number]) Hip Strength Hip Manual Muscle Testing Right Flexion (L2) 5 Normal Abduction 4- Good- Adduction 5 Normal External Rotation 5 Normal Internal Rotation 4 Good Left Flexion (L2) 5 Normal Abduction 4- Good- Adduction 5 Normal External Rotation 5 Normal Internal Rotation 4 Good Knee Strength Knee Manual Muscle Testing Right Flexion (S2) 4+ Good+ Extension (L3) 4+ Good+ Left Flexion (S2) 4+ Good+ Extension (L3) 4+ Good+ Ankle/Foot Strength Ankle and Foot Manual Muscle Testing Right Dorsiflexion (L4) 4+ Good+ Left Dorsiflexion (L4) 4+ Good+ PT-OP-O Vestibular Start: 09/12/24 17:15 Freq: Status: Active Protocol: Document 09/12/24 14:30 DCW (Rec: 09/12/24 17:37 DCW [id number]) Vestibular Assessment Visual Testing Smooth Pursuits Saccadic corrections Horizontal Smooth Pursuits Saccadic corrections Vertical Saccades Horizontal WNL Saccades Vertical WNL Heave Test Positive Bilateral Thrust Head Positive Bilateral PT-OP-Q Treatments Start: 09/12/24 17:15 Freq: Status: Active Protocol: Document 10/15/24 15:15 DCW (Rec: 10/15/24 16:06 DCW [id number]) Cardio Equipment Recumbent Stepper (Sci-Fit) Duration (Minutes) 5 Resistance 5 Seat Position 12 seat, 9 arms Other NuStep Gym Equipment Shuttle Recovery Unilateral Squats Resistance 37# Shuttle Recovery Stable Platform Reps/Time x15 Bilateral Squats Resistance 75# Shuttle Recovery Stable Platform Reps/Time x15 Shuttle Balance Red Details WBOS, Staggered Neuro Re-Education Treatment Balance Activities Hurdles Details Hurdles - fwd/lateral Equipment // bars Comments CGA Toe-taps Details Cone taps Surface AirEx Equipment // bars Comments CGA SLS Details SLS Equipment // bars PT-OP-T Assessment and Plan Start: 09/12/24 17:15 Freq: Status: Active Protocol: Document 10/15/24 15:15 DCW (Rec: 10/15/24 16:06 DCW [id number]) Physical Therapy Assessment Impairments Impairments Activity Tolerance,Balance,Functional Activities, Functional Mobility,Gait,Strength,Tone Goals Two Impairment Hopkins score of 37/56 indicates increased falls risk Mathematician Goal (LTG) Pt to increase Hopkins score by at least eight points to 45/56 in order to demonstrate a reduced risk of falls. LTG Duration 11/12/24 One Impairment Pt does not have an appropriate home exercise program Short Term Goal (STG Pt to be independent and complaint with an appropriate ) HEP STG Duration 10/12/24 Assessment Summary Assessment Pt continues to struggle with balance challenges, limited with SLS and tandem stance, significant difficulty when eyes are closed. May benefit from continued focus on balance, gait, strength, and functional mobility. Physical Therapy Plan Frequency and Duration Frequency of 1-2x/week Treatment Plan of Care Start 09/12/24 Date Plan of Care End 11/12/24 Date Therapeutic Interventions Therapeutic Balance Training,Coordination Training,Gait Training, Interventions Home Exercise Program,Manual Therapy,Neuromuscular Re- education,Patient/Caregiver Education,Self-Care/Home Management,Soft Tissue Mobilization,Therapeutic Activities,Therapeutic Exercises,Vestibular Rehabilitation Next Visit Focus/Plan Next Note Type Treatment Note Next Visit Plan Balance challenges, strengthening, functional mobility
--- NOTE | 2024-10-22 16:06 | PT.OTN ---
Current Diagnoses Unsteadiness on feet (10/22/24) Other abnormalities of gait and mobility (10/22/24) Repeated falls (10/22/24) Dizziness and giddiness (10/22/24) Physical Therapy Treatment Note PT-OP-A Visit Information Start: 09/12/24 17:15 Freq: Status: Active Protocol: Document 10/22/24 15:15 DCW (Rec: 10/22/24 16:05 DCW [id number]) Out-Patient Physical Therapy Visit Information Visit Information Visit Type Treatment Note Visit Start Time 15:15 Visit Stop Time 16:00 Visit Number 6 Number of GLASS TUBE BENDER Visits 0 Evaluation Information Evaluation Date 09/12/24 PT-OP-B Current Condition Start: 09/12/24 17:15 Freq: Status: Active Protocol: Document 09/12/24 14:30 DCW (Rec: 09/12/24 17:37 DCW [id number]) Current Condition History of Current Condition Current Complaints Poor balance, path deviation, falls History of Current Pt is an 83 year old male presenting with a complex Condition medical history, complaining of declining balance, weakness, poor gait/increased path deviation. Pt denies any rotational vertigo, describes symptoms as imbalance when up walking. Notes he had severe ear infections as a kid. Feels fine sitting or driving, and is able to walk 5 miles in [place] 3x/week, no fear of falling on pavement. Notes he has had multiple falls in his house, and admits he is hard to follow because of path deviation. Gets off balance with quick turns. Medical history complicated by colon/ prostate cancer treatment/radiation, macular degeneration, and UE/LE neuropathy. 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 Did have a recent ER visit, during which they scanned his carotid artery, and thought there was a blockage, so he had to go down to [facility]. Reports there was no blockage, but some soft plaque, for which he has been put on new medication. Pt feels all his symptoms have worsened since the change in meds, but also admits it could just be that he is aging. Treatment Goals Patient/Caregiver Improve balance and gait stability, limit falls Goals PT-OP-C Subjective Start: 09/12/24 17:15 Freq: Status: Active Protocol: Document 10/22/24 15:15 DCW (Rec: 10/22/24 16:05 DCW [id number]) OP-PT Subjective Patient Comments Patient Comments I went to the chiropractor last week, and he had this thing on my head that decompresses things, and the next day I could barely move. Then by Monday, I felt so good! I could stand up better and my balance was better . Today it's not quite as good. PT-OP-D Balance Start: 09/12/24 17:15 Freq: Status: Active Protocol: Document 09/12/24 14:30 DCW (Rec: 09/12/24 17:37 DCW [id number]) Balance Tests Hopkins Balance Test Hopkins Balance Test 37/56 Score Hopkins Balance Assessment Evaluation Sitting to Standing Independent w/out Hands Ability Unsupported Stance Supervision- 2 minutes Sitting Unsupported, Safely- 2 minutes Feet on Floor Standing to Sitting Safely, Minimal Hand Use Ability Transfer Ability Safely, Hand Use Unsupported Stance- Safely, With Eyes Open Eyes Closed Unsupported Stance- Supervision to maintain Eyes Open Reaching Forward Confidently, 10 inches Standing Pick- Up Object From Supervision Floor Look Behind Shoulder Supervision w/Turning - Standing Turning 360 Degrees Turns slowly, but safely Unsupported Stance, 4 Steps w/Supervision Alternating Feet on Stair Unsupported Tandem Small Step- 30 seconds Stance Unilateral Leg Lifts Leg/Unable to Hold Stance Total Score Hopkins Total Score ( 37 out of 56 points) PT-OP-E Functional Tests Start: 09/12/24 17:15 Freq: Status: Active Protocol: Document 09/17/24 17:00 DCW (Rec: 09/17/24 17:48 DCW [id number]) Functional Tests Dynamic Gait Index (DGI) Score PT-OP-M Strength Start: 09/12/24 17:15 Freq: Status: Active Protocol: Document 09/12/24 14:30 DCW (Rec: 09/12/24 17:37 DCW [id number]) Hip Strength Hip Manual Muscle Testing Right Flexion (L2) 5 Normal Abduction 4- Good- Adduction 5 Normal External Rotation 5 Normal Internal Rotation 4 Good Left Flexion (L2) 5 Normal Abduction 4- Good- Adduction 5 Normal External Rotation 5 Normal Internal Rotation 4 Good Knee Strength Knee Manual Muscle Testing Right Flexion (S2) 4+ Good+ Extension (L3) 4+ Good+ Left Flexion (S2) 4+ Good+ Extension (L3) 4+ Good+ Ankle/Foot Strength Ankle and Foot Manual Muscle Testing Right Dorsiflexion (L4) 4+ Good+ Left Dorsiflexion (L4) 4+ Good+ PT-OP-O Vestibular Start: 09/12/24 17:15 Freq: Status: Active Protocol: Document 09/12/24 14:30 DCW (Rec: 09/12/24 17:37 DCW [id number]) Vestibular Assessment Visual Testing Smooth Pursuits Saccadic corrections Horizontal Smooth Pursuits Saccadic corrections Vertical Saccades Horizontal WNL Saccades Vertical WNL Heave Test Positive Bilateral Thrust Head Positive Bilateral PT-OP-Q Treatments Start: 09/12/24 17:15 Freq: Status: Active Protocol: Document 10/22/24 15:15 DCW (Rec: 10/22/24 16:05 DCW [id number]) Cardio Equipment Recumbent Stepper (Sci-Fit) Duration (Minutes) 5 Resistance 5 Seat Position 12 seat, 9 arms Other Nu[employer] Gym Equipment Shuttle Recovery Unilateral Squats Resistance 37# Shuttle Recovery Stable Platform Reps/Time x15 Bilateral Squats Resistance 75# Shuttle Recovery Stable Platform Reps/Time x15 Shuttle Balance Red Details WBOS, Staggered Neuro Re-Education Treatment Balance Activities Hurdles Details Hurdles - fwd/lateral Equipment // bars Comments CGA Toe-taps Details Cone taps Surface AirEx Equipment // bars Comments CGA PT-OP-T Assessment and Plan Start: 09/12/24 17:15 Freq: Status: Active Protocol: Document 10/22/24 15:15 DCW (Rec: 10/22/24 16:05 DCW [id number]) Physical Therapy Assessment Impairments Impairments Activity Tolerance,Balance,Functional Activities, Functional Mobility,Gait,Strength,Tone Goals Two Impairment Hopkins score of 37/56 indicates increased falls risk Fpc Goal (LTG) Pt to increase Hopkins score by at least eight points to 45/56 in order to demonstrate a reduced risk of falls. LTG Duration 12/23/24 One Impairment Pt does not have an appropriate home exercise program Short Term Goal (STG Pt to be independent and complaint with an appropriate ) HEP STG Duration 11/22/24 Assessment Summary Assessment Pt showing some mild improvements with balance and activity tolerance. Does still tend to fatigue during session, but is taking fewer rest breaks. Will likely benefit from continued skilled therapeutic intervention focusing on balance challenges, gait, strengthening, and activity tolerance. Physical Therapy Plan Frequency and Duration Frequency of 1-2x/week Treatment Plan of Care Start 10/22/24 Date Plan of Care End 12/23/24 Date Therapeutic Interventions Therapeutic Balance Training,Coordination Training,Gait Training, Interventions Home Exercise Program,Manual Therapy,Neuromuscular Re- education,Patient/Caregiver Education,Self-Care/Home Management,Soft Tissue Mobilization,Therapeutic Activities,Therapeutic Exercises,Vestibular Rehabilitation Next Visit Focus/Plan Next Note Type Treatment Note Next Visit Plan Balance challenges, strengthening, functional mobility
--- NOTE | 2024-10-22 16:06 | PT.OPPOC ---
Physical, Occupational & Speech Therapy At [facility] Current Diagnoses Unsteadiness on feet (10/22/24) Other abnormalities of gait and mobility (10/22/24) Repeated falls (10/22/24) Dizziness and giddiness (10/22/24) Visit Care Team Role Provider Type Alanis Layne MD Attending Provider Physician Family Provider Primary Care Provider Referring Provider Specialty: Family Practice Address: [address] [place] [address], [place], [facility] Email: [email or web address] Plan Of Care PT-OP-B Current Condition Start: 09/12/24 17:15 Freq: Status: Active Protocol: Document 09/12/24 14:30 DCW (Rec: 09/12/24 17:37 DCW [id number]) Current Condition History of Current Condition Current Complaints Poor balance, path deviation, falls History of Current Pt is an 83 year old male presenting with a complex Condition medical history, complaining of declining balance, weakness, poor gait/increased path deviation. Pt denies any rotational vertigo, describes symptoms as imbalance when up walking. Notes he had severe ear infections as a kid. Feels fine sitting or driving, and is able to walk 5 miles in [place] 3x/week, no fear of falling on pavement. Notes he has had multiple falls in his house, and admits he is hard to follow because of path deviation. Gets off balance with quick turns. Medical history complicated by colon/ prostate cancer treatment/radiation, macular degeneration, and UE/LE neuropathy. 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 Did have a recent ER visit, during which they scanned his carotid artery, and thought there was a blockage, so he had to go down to [facility]. Reports there was no blockage, but some soft plaque, for which he has been put on new medication. Pt feels all his symptoms have worsened since the change in meds, but also admits it could just be that he is aging. Treatment Goals Patient/Caregiver Improve balance and gait stability, limit falls Goals PT-OP-T Assessment and Plan Start: 09/12/24 17:15 Freq: Status: Active Protocol: Document 10/22/24 15:15 DCW (Rec: 10/22/24 16:05 DCW [id number]) Physical Therapy Assessment Impairments Impairments Activity Tolerance,Balance,Functional Activities, Functional Mobility,Gait,Strength,Tone Goals Two Impairment Hopkins score of 37/56 indicates increased falls risk Jail Goal (LTG) Pt to increase Hopkins score by at least eight points to 45/56 in order to demonstrate a reduced risk of falls. LTG Duration 12/23/24 One Impairment Pt does not have an appropriate home exercise program Short Term Goal (STG Pt to be independent and complaint with an appropriate ) HEP STG Duration 11/22/24 Assessment Summary Assessment Pt showing some mild improvements with balance and activity tolerance. Does still tend to fatigue during session, but is taking fewer rest breaks. Will likely benefit from continued skilled therapeutic intervention focusing on balance challenges, gait, strengthening, and activity tolerance. Physical Therapy Plan Frequency and Duration Frequency of 1-2x/week Treatment Plan of Care Start 10/22/24 Date Plan of Care End 12/23/24 Date Therapeutic Interventions Therapeutic Balance Training,Coordination Training,Gait Training, Interventions Home Exercise Program,Manual Therapy,Neuromuscular Re- education,Patient/Caregiver Education,Self-Care/Home Management,Soft Tissue Mobilization,Therapeutic Activities,Therapeutic Exercises,Vestibular Rehabilitation Next Visit Focus/Plan Next Note Type Treatment Note Next Visit Plan Balance challenges, strengthening, functional mobility Plan of Care Dates Plan of Care Start Date 10/22/24 Plan of Care End Date 12/23/24 Electronically Signed by: Prince Esparza, PT 10/22/24 1215 If you are in agreement with this Plan of Care, please return a signed and dated copy. I have reviewed this Plan of Care and certify that the skilled therapy services above are required to meet the patient?s needs. Physician Signature Date Printed Name and Credentials Clinical Instructor Signature Printed Name and Credentials
--- NOTE | 2024-11-07 15:22 | PT.OTN ---
Current Diagnoses Unsteadiness on feet (11/07/24) Other abnormalities of gait and mobility (11/07/24) Repeated falls (11/07/24) Dizziness and giddiness (11/07/24) Physical Therapy Treatment Note PT-OP-A Visit Information Start: 09/12/24 17:15 Freq: Status: Active Protocol: Document 11/07/24 13:57 NBM (Rec: 11/07/24 15:18 NBM Laptop) Out-Patient Physical Therapy Visit Information Visit Information Visit Type Treatment Note Visit Start Time 13:55 Visit Stop Time 14:40 Visit Number 7 Number of CHARGE AUTHORIZER Visits 1 PT-OP-B Current Condition Start: 09/12/24 17:15 Freq: Status: Active Protocol: Document 09/12/24 14:30 DCW (Rec: 09/12/24 17:37 DCW [id number]) Current Condition History of Current Condition Current Complaints Poor balance, path deviation, falls History of Current Pt is an 83 year old male presenting with a complex Condition medical history, complaining of declining balance, weakness, poor gait/increased path deviation. Pt denies any rotational vertigo, describes symptoms as imbalance when up walking. Notes he had severe ear infections as a kid. Feels fine sitting or driving, and is able to walk 5 miles in [place] 3x/week, no fear of falling on pavement. Notes he has had multiple falls in his house, and admits he is hard to follow because of path deviation. Gets off balance with quick turns. Medical history complicated by colon/ prostate cancer treatment/radiation, macular degeneration, and UE/LE neuropathy. 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 Did have a recent ER visit, during which they scanned his carotid artery, and thought there was a blockage, so he had to go down to [facility]. Reports there was no blockage, but some soft plaque, for which he has been put on new medication. Pt feels all his symptoms have worsened since the change in meds, but also admits it could just be that he is aging. Treatment Goals Patient/Caregiver Improve balance and gait stability, limit falls Goals PT-OP-C Subjective Start: 09/12/24 17:15 Freq: Status: Active Protocol: Document 11/07/24 13:57 NBM (Rec: 11/07/24 15:18 NBM Laptop) OP-PT Subjective Patient Comments Patient Comments Mateusz reports chiropractor is continuing decompression of his neck and makes sure he doesn't do it on a physical therapy day because it really affects me. Right now I 'm trying anything to make my balance. I had a good eye exam yesterday and my eyes haven't changed, but they are sensitive to light. He has nighttime lighting at outlets for walking in home at night. PT-OP-D Balance Start: 09/12/24 17:15 Freq: Status: Active Protocol: Document 09/12/24 14:30 DCW (Rec: 09/12/24 17:37 DCW [id number]) Balance Tests Hopkins Balance Test Hopkins Balance Test 37/56 Score Hopkins Balance Assessment Evaluation Sitting to Standing Independent w/out Hands Ability Unsupported Stance Supervision- 2 minutes Sitting Unsupported, Safely- 2 minutes Feet on Floor Standing to Sitting Safely, Minimal Hand Use Ability Transfer Ability Safely, Hand Use Unsupported Stance- Safely, With Eyes Open Eyes Closed Unsupported Stance- Supervision to maintain Eyes Open Reaching Forward Confidently, 10 inches Standing Pick- Up Object From Supervision Floor Look Behind Shoulder Supervision w/Turning - Standing Turning 360 Degrees Turns slowly, but safely Unsupported Stance, 4 Steps w/Supervision Alternating Feet on Stair Unsupported Tandem Small Step- 30 seconds Stance Unilateral Leg Lifts Leg/Unable to Hold Stance Total Score Hopkins Total Score ( 37 out of 56 points) PT-OP-E Functional Tests Start: 09/12/24 17:15 Freq: Status: Active Protocol: Document 09/17/24 17:00 DCW (Rec: 09/17/24 17:48 DCW [id number]) Functional Tests Dynamic Gait Index (DGI) Score 16 PT-OP-M Strength Start: 09/12/24 17:15 Freq: Status: Active Protocol: Document 09/12/24 14:30 DCW (Rec: 09/12/24 17:37 DCW [id number]) Hip Strength Hip Manual Muscle Testing Right Flexion (L2) 5 Normal Abduction 4- Good- Adduction 5 Normal External Rotation 5 Normal Internal Rotation 4 Good Left Flexion (L2) 5 Normal Abduction 4- Good- Adduction 5 Normal External Rotation 5 Normal Internal Rotation 4 Good Knee Strength Knee Manual Muscle Testing Right Flexion (S2) 4+ Good+ Extension (L3) 4+ Good+ Left Flexion (S2) 4+ Good+ Extension (L3) 4+ Good+ Ankle/Foot Strength Ankle and Foot Manual Muscle Testing Right Dorsiflexion (L4) 4+ Good+ Left Dorsiflexion (L4) 4+ Good+ PT-OP-O Vestibular Start: 09/12/24 17:15 Freq: Status: Active Protocol: Document 09/12/24 14:30 DCW (Rec: 09/12/24 17:37 DCW [id number]) Vestibular Assessment Visual Testing Smooth Pursuits Saccadic corrections Horizontal Smooth Pursuits Saccadic corrections Vertical Saccades Horizontal WNL Saccades Vertical WNL Heave Test Positive Bilateral Thrust Head Positive Bilateral PT-OP-Q Treatments Start: 09/12/24 17:15 Freq: Status: Active Protocol: Document 11/07/24 13:57 NBM (Rec: 11/07/24 15:18 NBM Laptop) Gym Equipment Shuttle Recovery Unilateral Squats Details Cues for LE alignment Resistance 37# Shuttle Recovery Stable Platform Reps/Time x15 ea Bilateral Squats Details cues for LE alignment Resistance 75# Shuttle Recovery Stable Platform Reps/Time x15 Shuttle Balance Red Details WBOS, NBOS, Staggered B Comments no UE support except Staggered B prn, CGA>modA a/p stance: stilling platform, a/p weightshifting progressing ecc control cues for maintaining upright posture w/ gluteal activation, chin retraction, and distant focal point. Therapeutic Exercises Standing Exercises SL hip abd/ext Standing Exercise SL hip abduction/extension/marches Name Side bilateral Resistance L2 around ankles, around feet for marches Equipment Used handrail (also tactile cue for marches), held on w/ both UE Reps/Minutes 3 x 6-10 ea Comments cues upright posture, smaller range, maintain DF and knee ext w/ ext Neuro Re-Education Treatment Balance Activities SLS Details SLS Equipment handrail, gait belt Reps/Duration multiple trials Comments 4 - 6 sec max bilaterally. Initiates w/ [employer]. Cues upright posture, gluteal activation, distant focal point. Tandem Details Tandem walking Equipment gait belt, red/black squares Reps/Duration 10 ft x6 Comments CGA>modA, walked modified tandem and full tandem. cues for upright posture (chin tuck and gluteal activation), slower pacing, distant focal point. Unsteadiness improves with repetitions and cueing. Coordination Activities Backwards ambulation Details min>modA Equipment gait belt, red/black squares Reps/Duration 10 ft x2 Comments cues for pt to maintain upright posture, neutral foot and hip width L>R, toe>heel patterning Self-Care/Home Management Treatment Education Patient Education Fall Risk,Home Exercise Program,Posture,Safety Other Education Edu re: upright posture with fwd ambulation to maintain center of balance over base of support to decrease fall risk. Emphasis on gluteal activation and chin retraction for c-sp alignment. Pt encouraged to use his wakling group as accountability buddies for maintaining posture with weekly walks. Explained how to incorporate into HEP strengthening and balance ex's. -Added to HEP: resisted hip abd/ext lvl 2 Tb - HO and band given. PT-OP-T Assessment and Plan Start: 09/12/24 17:15 Freq: Status: Active Protocol: Document 11/07/24 13:57 NBM (Rec: 11/07/24 15:18 NBM Laptop) Physical Therapy Assessment Goals Two Impairment Hopkins score of 37/56 indicates increased falls risk Counselor Aid Goal (LTG) Pt to increase Hopkins score by at least eight points to 45/56 in order to demonstrate a reduced risk of falls. LTG Duration 12/23/24 One Impairment Pt does not have an appropriate home exercise program Short Term Goal (STG Pt to be independent and complaint with an appropriate ) HEP 11/07/24: Added resisted hip abd/ext w/ Level 2 Tb to HEP - HO and band given. STG Duration 11/22/24 Assessment Summary Assessment Mateusz requires cues with tandem walking and Shuttle Balance for upright posture (chin tuck and gluteal activation), slower pacing, and distant focal point, and unsteadiness and eccentric control improves with repetitions and cueing. SL stance improves from 4 sec to 6 sec bilaterally with same cues. He demonstrates greatly improved postural awareness end of session ambulating out of clinic. Added to HEP: resisted hip abduction/extension w/ Lvl 2 Tb - HO and band given. Physical Therapy Plan Frequency and Duration Frequency of 1-2x/week Treatment Plan of Care Start 10/22/24 Date Plan of Care End 12/23/24 Date Therapeutic Interventions Therapeutic Balance Training,Coordination Training,Gait Training, Interventions Home Exercise Program,Manual Therapy,Neuromuscular Re- education,Patient/Caregiver Education,Self-Care/Home Management,Soft Tissue Mobilization,Therapeutic Activities,Therapeutic Exercises,Vestibular Rehabilitation Next Visit Focus/Plan Next Note Type Treatment Note Next Visit Plan Balance challenges, strengthening, functional mobility
--- NOTE | 2024-11-12 12:20 | PT.OTN ---
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 Pt denies any rotational vertigo, describes symptoms as imbalance when up walking. Notes he had severe ear infections as a kid. Feels fine sitting or driving, and is able to walk 5 miles in [employer] 3x/week, no fear of falling on pavement. Notes he has had multiple falls in his house, and admits he is hard to follow because of path deviation. Gets off balance with quick turns. Medical history complicated by colon/ prostate cancer treatment/radiation, macular degeneration, and UE/LE neuropathy. 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 Did have a recent ER visit, during which they scanned his carotid artery, and thought there was a blockage, so he had to go down to [facility]. Reports there was no blockage, but some soft plaque, for which he has been put on new medication. Pt feels all his symptoms have worsened since the change in meds, but also admits it could just be that he is aging. Treatment Goals Patient/Caregiver Improve balance and gait stability, limit falls Goals PT-OP-C Subjective Start: 09/12/24 17:15 Freq: Status: Active Protocol: Document 11/12/24 11:35 SAK (Rec: 11/12/24 12:20 SAK Laptop) OP-PT Subjective Patient Comments Patient Comments States walks 5 miles 3x/day, worn out. Feels like doing too much with PT as well. Trying to stand more upright on the trail and around the house. Wants to decrease frequency of PT to 1x/wk; has cancelled 1x/wk. Doesn't use trekking poles with walking pavement, has poles uses if goes off trail. Using vibration plate at home. PT-OP-D Balance Start: 09/12/24 17:15 Freq: Status: Active Protocol: Document 09/12/24 14:30 DCW (Rec: 09/12/24 17:37 DCW [id number]) Balance Tests Hopkins Balance Test Hopkins Balance Test 37/56 Score Hopkins Balance Assessment Evaluation Sitting to Standing Independent w/out Hands Ability Unsupported Stance Supervision- 2 minutes Sitting Unsupported, Safely- 2 minutes Feet on Floor Standing to Sitting Safely, Minimal Hand Use Ability Transfer Ability Safely, Hand Use Unsupported Stance- Safely, With Eyes Open Eyes Closed Unsupported Stance- Supervision to maintain Eyes Open Reaching Forward Confidently, 10 inches Standing Pick- Up Object From Supervision Floor Look Behind Shoulder Supervision w/Turning - Standing Turning 360 Degrees Turns slowly, but safely Unsupported Stance, 4 Steps w/Supervision Alternating Feet on Stair Unsupported Tandem Small Step- 30 seconds Stance Unilateral Leg Lifts Leg/Unable to Hold Stance Total Score Hopkins Total Score ( 37 out of 56 points) PT-OP-E Functional Tests Start: 09/12/24 17:15 Freq: Status: Active Protocol: Document 09/17/24 17:00 DCW (Rec: 09/17/24 17:48 DCW [id number]) Functional Tests Dynamic Gait Index (DGI) Score PT-OP-M Strength Start: 09/12/24 17:15 Freq: Status: Active Protocol: Document 09/12/24 14:30 DCW (Rec: 09/12/24 17:37 DCW [id number]) Hip Strength Hip Manual Muscle Testing Right Flexion (L2) 5 Normal Abduction 4- Good- Adduction 5 Normal External Rotation 5 Normal Internal Rotation 4 Good Left Flexion (L2) 5 Normal Abduction 4- Good- Adduction 5 Normal External Rotation 5 Normal Internal Rotation 4 Good Knee Strength Knee Manual Muscle Testing Right Flexion (S2) 4+ Good+ Extension (L3) 4+ Good+ Left Flexion (S2) 4+ Good+ Extension (L3) 4+ Good+ Ankle/Foot Strength Ankle and Foot Manual Muscle Testing Right Dorsiflexion (L4) 4+ Good+ Left Dorsiflexion (L4) 4+ Good+ PT-OP-O Vestibular Start: 09/12/24 17:15 Freq: Status: Active Protocol: Document 09/12/24 14:30 DCW (Rec: 09/12/24 17:37 DCW [id number]) Vestibular Assessment Visual Testing Smooth Pursuits Saccadic corrections Horizontal Smooth Pursuits Saccadic corrections Vertical Saccades Horizontal WNL Saccades Vertical WNL Heave Test Positive Bilateral Thrust Head Positive Bilateral PT-OP-Q Treatments Start: 09/12/24 17:15 Freq: Status: Active Protocol: Document 11/12/24 11:35 SAK (Rec: 11/12/24 12:20 SAK Laptop) Gym Equipment Shuttle Recovery Unilateral Squats Details Cues for LE alignment Resistance 37# Shuttle Recovery Stable Platform Reps/Time x10, x 15, R, 25x L ea Bilateral Squats Details cues for LE alignment Resistance 75# Shuttle Recovery Stable Platform Reps/Time x20 Shuttle Balance Red Details bal and wt shift A/P, side to side Comments occasional UE support A/P, frequent side to side Therapeutic Exercises Standing Exercises wall posture Reps/Minutes 3 min Comments verbal and tactile cues Neuro Re-Education Treatment Balance Activities march Surface firm Equipment hallway railing PRN Reps/Duration 10 ft x 2 Tandem Details Tandem walking Equipment gait belt, hallway railing PRN Reps/Duration 10 ft x6 Comments CGA>modA, walked modified tandem and full tandem. cues for upright posture (chin tuck and gluteal activation), slower pacing, distant focal point. Unsteadiness improves with repetitions and cueing. Coordination Activities Backwards ambulation Details min>modA Equipment gait belt,railing PRN Reps/Duration 10 ft x3 Comments cues for pt to maintain upright posture, neutral foot and hip width L>R, toe>heel patterning Self-Care/Home Management Treatment Education Patient Education Home Exercise Program,Posture,Safety PT-OP-T Assessment and Plan Start: 09/12/24 17:15 Freq: Status: Active Protocol: Document 11/12/24 11:35 SAK (Rec: 11/12/24 12:20 SAK Laptop) Physical Therapy Assessment Impairments Impairments Activity Tolerance,Balance,Functional Activities, Functional Mobility,Gait,Strength,Tone Goals Two Impairment Hopkins score of 37/56 indicates increased falls risk Senior Care Goal (LTG) Pt to increase Hopkins score by at least eight points to 45/56 in order to demonstrate a reduced risk of falls. LTG Duration 12/23/24 One Impairment Pt does not have an appropriate home exercise program Short Term Goal (STG Pt to be independent and complaint with an appropriate ) HEP 11/07/24: Added resisted hip abd/ext w/ Level 2 Tb to HEP - HO and band given. STG Duration 11/22/24 Progress Towards Goals Progress Towards Progressing Toward Goals Goals Assessment Summary Assessment Patient has decreased his frequency to 1x/wk, compliant to HEP and 3x/wk walking group. Requires verbal and tactile cues for postural correction and correct muscle activation sequencing. Progressed to side to side bal and weight shifting on shuttle balance and trial wall posture for reference neutral posture. He indicates feeling progress, tandem stand still most difficult. Physical Therapy Plan Frequency and Duration Frequency of 1-2x/week Treatment Plan of Care Start 10/22/24 Date Plan of Care End 12/23/24 Date Therapeutic Interventions Therapeutic Balance Training,Coordination Training,Gait Training, Interventions Home Exercise Program,Manual Therapy,Neuromuscular Re- education,Patient/Caregiver Education,Self-Care/Home Management,Soft Tissue Mobilization,Therapeutic Activities,Therapeutic Exercises,Vestibular Rehabilitation Next Visit Focus/Plan Next Note Type Treatment Note Next Visit Plan Balance challenges, strengthening, functional mobility per POC
--- NOTE | 2024-11-18 17:41 | PT.OPPN ---
Current Diagnoses Unsteadiness on feet (11/18/24) Other abnormalities of gait and mobility (11/18/24) Repeated falls (11/18/24) Dizziness and giddiness (11/18/24) Physical Therapy Progress Note PT OP: Balance, Vestibular, Neuro Start: 11/12/24 13:29 Freq: Status: Active Protocol: Document 11/18/24 16:45 DCW (Rec: 11/18/24 17:41 DCW [id number]) Out-Patient Physical Therapy Visit Information Visit Information Visit Type Progress Note Visit Start Time 16:45 Visit Stop Time 17:30 Visit Number 9 Number of SHELL ASSEMBLER Visits 0 Progress Note Due 12/18/24 Evaluation Information Evaluation Date 09/12/24 OP-PT Subjective Patient Comments Patient Comments Pt had a water catastrophe in his basement, had to fix a leaking pipe, and he was able to do it himself, but is now exhausted, and is hoping to skip any warm up . Does note that he feels his stamina has been fairly good recently. Neuro Re-Education Treatment Balance Activities Dynamic Gait Details Hallway ambulation Reps/Duration CGA Comments Head turns (horizontal/vertical) Hurdles Details Hurdles - fwd/lateral Equipment // bars Comments CGA Toe-taps Details Cone taps Surface AirEx Equipment // bars Comments CGA Foam Details EO/EC, X1 head turns Surface AirEx Physical Therapy Assessment Impairments Impairments Activity Tolerance,Balance,Functional Activities, Functional Mobility,Gait,Strength,Tone Goals Two Impairment Hopkins score of 37/56 indicates increased falls risk Custodial Goal (LTG) Pt to increase Hopkins score by at least eight points to 45/56 in order to demonstrate a reduced risk of falls. LTG Duration 12/23/24 One Impairment Pt does not have an appropriate home exercise program Short Term Goal (STG Pt to be independent and complaint with an appropriate ) HEP 11/07/24: Added resisted hip abd/ext w/ Level 2 Tb to HEP - HO and band given. STG Duration 11/22/24 Assessment Summary Assessment Pt noted being tired today, but did fairly well with balance challenges today. Pt demonstrated fairly significant challenge with dynamic gait challenges in hallway, will likely benefit from more practice. Continue to focus on balance, strength, and activity tolerance. Physical Therapy Plan Frequency and Duration Frequency of 1-2x/week Treatment Plan of Care Start 10/22/24 Date Plan of Care End 12/23/24 Date Therapeutic Interventions Therapeutic Balance Training,Coordination Training,Gait Training, Interventions Home Exercise Program,Manual Therapy,Neuromuscular Re- education,Patient/Caregiver Education,Self-Care/Home Management,Soft Tissue Mobilization,Therapeutic Activities,Therapeutic Exercises,Vestibular Rehabilitation Next Visit Focus/Plan Next Note Type Treatment Note Next Visit Plan Balance challenges, strengthening, functional mobility per POC
--- NOTE | 2025-01-14 16:05 | PT.OPDS ---
Current Diagnoses Unsteadiness on feet (11/18/24) Other abnormalities of gait and mobility (11/18/24) Repeated falls (11/18/24) Dizziness and giddiness (11/18/24) Visit Care Team Role Provider Type Alanis Layne MD Attending Provider Physician Family Provider Primary Care Provider Referring Provider Specialty: [facility] Practice Address: [address] [place] [address], [id number] Email: [email or web address] Visit Number Visit Number 9 Discharge Summary PT OP: Balance, Vestibular, Neuro Start: 11/12/24 13:29 Freq: Status: Active Protocol: Document 01/14/25 16:04 DCW (Rec: 01/14/25 16:05 DCW [id number]) Physical Therapy Assessment Assessment Summary Assessment Pt did not call to schedule more follow-up visits. Pt has currently not been seen in nearly two months, and POC has since . Pt will be discharged from skilled therapy at this time. Physical Therapy Plan Discharge Physical Therapy Discharge Reasons No Longer Attending PT
== END 2025-01-15 10:19 | disposition home or self-care (01) ==
LOC: PHYS 17:00
PROVIDERS: Family Provider Family Medicine; PCP Family Medicine; Referring Provider Family Medicine; Visit Provider Family Medicine
DX: R42 Dizziness and giddiness (principal); R26.89 Other abnormalities of gait and mobility; R26.81 Unsteadiness on feet; R29.6 Repeated falls
CPT/HCPCS: 97110; 97112; 97163; 97535